=== PATIENT | male | born 1975 | race Hispanic/Latino ===

== ENCOUNTER 2022-12-10 17:15 | Inpatient (IN) | payer OTHER ==
[~2022-12-10] VITALS: Ht 177.8 cm; Wt 124.7 kg
[2022-12-10 20:26] LABS: APPEARANCE,URINE CLOUDY (CLEAR); BILIRUBIN,URINE 3 mg/dL (NEGATIVE); COLOR,URINE DARK-ORANGE (YELLOW); GLUCOSE, URINE (UA) 30 mg/dL (NEGATIVE); KETONES,URINE NEGATIVE (NEGATIVE); LEUKOCYTE ESTERASE ,URINE NEGATIVE Leu/uL (NEGATIVE); NITRATE,URINE NEGATIVE (NEGATIVE); OCCULT BLOOD,URINE NEGATIVE (NEGATIVE); PROTEIN,URINE 200 mg/dL (NEGATIVE); UROBILINOGEN,URINE 12 mg/dL (0.2-1.0)
[2022-12-10 20:27] LABS: ADD UA MICROSCOPIC YES
[2022-12-10] MEDS ORDERED: 0.9% NACL 500ML IV.SOLN 500 ML IV ONE (20:30)
[2022-12-10] MEDS ORDERED: LORAZEPAM 2 MG/ML 1 ML VIAL IM ONE (20:30)
[2022-12-10 20:31] LABS: BACTERIA,URINE RARE /HPF (None Seen); MUCUS,URINE MOD LPF (None Seen); RBC,URINE 0-1 /HPF (0-1); SQUAMOUS EPITHELIAL CELL,UR FEW /HPF (0-2)
[2022-12-10 20:32] LABS: AMPHET/METH SCREEN,URINE NEGATIVE (NEGATIVE); BARBITURATE SCREEN, URINE NEGATIVE (NEGATIVE); BENZODIAZEPINES SCREEN,URINE NEGATIVE (NEGATIVE); CANNABINOID SCREEN,URINE NEGATIVE (NEGATIVE); COCAINE SCREEN,URINE NEGATIVE (NEGATIVE); OPIATE SCREEN,URINE NEGATIVE (NEGATIVE); PHENCYCLIDINE SCREEN,URINE NEGATIVE (NEGATIVE)
[2022-12-10 20:45] LABS: BASOPHILS # (AUTO) 0.09 K/uL (0.00-0.20); EOSINOPHILS # (AUTO) 0.18 K/uL (0.00-0.70); EOSINOPHILS % (AUTO) 2.1 % (0.0-8.0); HEMATOCRIT 39.3 % (42-54); IMMATURE GRANULOCYTE ABSOLUTE 0.03 K/uL (0-1); LYMPHOCYTES # (AUTO) 1.2 K/uL (1.0-4.8); LYMPHOCYTES % (AUTO) 13.5 % (21.0-51.0); MEAN CORPUSCULAR HEMOGLOBIN 32.9 pg (27.0-33.0); MEAN CORPUSCULAR HGB CONC 34.4 g/dL (32.0-36.0); MEAN CORPUSCULAR VOLUME 95.9 fL (79-99); MONOCYTES # (AUTO) 0.9 K/uL (0.1-1.0); MONOCYTES % (AUTO) 10.3 % (3.0-13.0); NEUTROPHILS # (AUTO) 6.3 K/uL (1.8-7.7); NEUTROPHILS % (AUTO) 72.8 % (40.0-77.0); PLATELET COUNT (AUTO) 51 K/uL (130-400); RED CELL DISTRIBUTION WIDTH 15.9 % (11.0-15.5); WHITE BLOOD COUNT (AUTO) 8.7 K/uL (4.8-10.8)
[2022-12-10 20:55] LABS: CREATININE 0.7 mg/dL (0.5-1.5); POTASSIUM 3.5 mmol/L (3.5-5.1)
[2022-12-10 20:59] LABS: ALBUMIN 2.8 g/dL (3.5-5.0); BILIRUBIN,TOTAL 8.1 mg/dL (0.2-1.0)
[2022-12-10 21:07] LABS: B-TYPE NATRIURETIC PEPTIDE 15 pg/mL (0-100)
[2022-12-10 21:09] LABS: PLATELET MORPHOLOGY COMMENT MARKED DECREASE
[2022-12-10] MEDS ORDERED: LACTULOSE 20 GM/30 ML UDCUP PO ONE (22:30)
[2022-12-10] MEDS ORDERED: HYDROCODONE/ACETAMINOPHEN 5/325 MG TAB PO PRN (23:00)
[2022-12-10] MEDS ORDERED: HYDROMORPHONE 1 MG INJ IV PRN (23:00)
[2022-12-10] MEDS ORDERED: ACETAMINOPHEN 325 MG TAB PO PRN ×2 (23:00)
[2022-12-10] MEDS ORDERED: ONDANSETRON 4MG INJ IV PRN (23:00)
[2022-12-10 23:21] LABS: INR 1.62 (0.85-1.15); PROTHROMBIN TIME 18.2 SEC (9.6-11.6)
[2022-12-10 23:23] LABS: PARTIAL THROMBOPLASTIN TIME 31.5 SEC (26.3-35.5)
[2022-12-11] MEDS ORDERED: LORAZEPAM 2 MG/ML 1 ML VIAL IVP PRN (02:00)
[2022-12-11] MEDS ORDERED: PHARMACY COMMUNICATION MISC PRN (02:00)
[2022-12-11] MEDS: CHLORDIAZEPOXIDE HCL 25 MG CAP PO SCH ×3 (02:10→17:35)
[2022-12-11 05:54] LABS: BASOPHILS # (AUTO) 0.07 K/uL (0.00-0.20); BASOPHILS % (AUTO) 0.8 % (0.0-5.0); EOSINOPHILS # (AUTO) 0.26 K/uL (0.00-0.70); EOSINOPHILS % (AUTO) 3.1 % (0.0-8.0); HEMATOCRIT 35.3 % (42-54); IMMATURE GRANULOCYTE ABSOLUTE 0.04 K/uL (0-1); LYMPHOCYTES # (AUTO) 1.2 K/uL (1.0-4.8); LYMPHOCYTES % (AUTO) 14.5 % (21.0-51.0); MEAN CORPUSCULAR HEMOGLOBIN 32.4 pg (27.0-33.0); MEAN CORPUSCULAR HGB CONC 34.6 g/dL (32.0-36.0); MEAN CORPUSCULAR VOLUME 93.6 fL (79-99); MONOCYTES # (AUTO) 0.8 K/uL (0.1-1.0); NEUTROPHILS % (AUTO) 71.1 % (40.0-77.0); PLATELET COUNT (AUTO) 46 K/uL (130-400); RED BLOOD CELL COUNT(AUTO) 3.77 MIL/uL (4.50-6.20); RED CELL DISTRIBUTION WIDTH 16.3 % (11.0-15.5); WHITE BLOOD COUNT (AUTO) 8.4 K/uL (4.8-10.8)
[2022-12-11 06:07] LABS: CREATININE 0.7 mg/dL (0.5-1.5); MAGNESIUM 1.6 mg/dL (1.80-2.40); PHOSPHORUS 3.6 mg/dL (2.5-4.9); POTASSIUM 3.4 mmol/L (3.5-5.1)
[2022-12-11] MEDS: LACTULOSE 20 GM/30 ML UDCUP PO SCH ×2 (08:25→20:21)
[2022-12-11] MEDS: FAMOTIDINE 20MG TAB PO SCH ×2 (08:25→20:22)
[2022-12-11] MEDS: FUROSEMIDE 40 MG TABLET PO SCH (08:26)
[2022-12-11] MEDS ORDERED: LACTULOSE 20 GM/30 ML UDCUP PO SCH (09:00)
[2022-12-11] MEDS ORDERED: IOHEXOL 350 MG/ML 100ML INFUS..BTL IV ONE (10:11)
[2022-12-11 16:25] LABS: HEPATITIS A IGM ANTIBODY Non-Reactive (Nonreactive); HEPATITIS B CORE IGM ANTIBODY Non-Reactive (Negative); HEPATITIS B SURFACE ANTIGEN Non-Reactive (Nonreactive); HEPATITIS C ANTIBODY Non-Reactive (Nonreactive)
[2022-12-11] MEDS: M.V.I. IV [ADULT] 10 ML, FOLIC ACID 1 MG, THIAMINE HCL 100 MG in 0.9%NACL 1000ML 1,000 ML IV SCH (16:38)
[2022-12-11] MEDS ORDERED: PEG 3350/NA SULF,BICARB,CL/KCL 4000 ML SOLN PO STA (18:03)
[2022-12-11 20:31] LABS: SARS-CoV-2, RNA, NAAT NEGATIVE SARS CoV-2 (NEGATIVE)
[2022-12-11 21:00] VITALS: BP 154/97; PULSE 114; RESP 22
[2022-12-11 23:46] VITALS: BP 160/94; PULSE 111; RESP 21
[2022-12-12] VITALS (30 sets, daily range): BP systolic 119–154; BP diastolic 73–92; PULSE 93–120; RESP 15–22; O2SAT 95
[2022-12-12] MEDS: CHLORDIAZEPOXIDE HCL 25 MG CAP PO SCH ×3 (02:45→18:00)
[2022-12-12 03:45] LABS: BASOPHILS # (AUTO) 0.05 K/uL (0.00-0.20); BASOPHILS % (AUTO) 0.7 % (0.0-5.0); EOSINOPHILS # (AUTO) 0.21 K/uL (0.00-0.70); EOSINOPHILS % (AUTO) 2.9 % (0.0-8.0); HEMATOCRIT 36.1 % (42-54); IMMATURE GRANULOCYTE ABSOLUTE 0.04 K/uL (0-1); LYMPHOCYTES # (AUTO) 0.9 K/uL (1.0-4.8); MEAN CORPUSCULAR HEMOGLOBIN 33.2 pg (27.0-33.0); MEAN CORPUSCULAR HGB CONC 34.3 g/dL (32.0-36.0); MEAN CORPUSCULAR VOLUME 96.5 fL (79-99); MONOCYTES # (AUTO) 0.8 K/uL (0.1-1.0); MONOCYTES % (AUTO) 11.3 % (3.0-13.0); NEUTROPHILS # (AUTO) 5.1 K/uL (1.8-7.7); NEUTROPHILS % (AUTO) 71.5 % (40.0-77.0); PLATELET COUNT (AUTO) 46 K/uL (130-400); RED BLOOD CELL COUNT(AUTO) 3.74 MIL/uL (4.50-6.20); WHITE BLOOD COUNT (AUTO) 7.2 K/uL (4.8-10.8)
[2022-12-12 04:02] LABS: ALBUMIN 2.5 g/dL (3.5-5.0); BILIRUBIN,TOTAL 9.9 mg/dL (0.2-1.0); CREATININE 0.8 mg/dL (0.5-1.5); MAGNESIUM 1.7 mg/dL (1.80-2.40); PHOSPHORUS 3.1 mg/dL (2.5-4.9); POTASSIUM 3.4 mmol/L (3.5-5.1); TOTAL PROTEIN, SERUM 6.2 g/dL (6.0-8.3)
[2022-12-12] MEDS: LACTULOSE 20 GM/30 ML UDCUP PO SCH ×2 (09:00→21:32)
[2022-12-12] MEDS: FAMOTIDINE 20MG TAB PO SCH ×2 (09:00→21:32)
[2022-12-12] MEDS: FUROSEMIDE 40 MG TABLET PO SCH (09:00)
[2022-12-12] MEDS ORDERED: POTASSIUM CHLORIDE 20MEQ/100ML 100 ML IV ONE (10:23)
[2022-12-12] MEDS: M.V.I. IV [ADULT] 10 ML, FOLIC ACID 1 MG, THIAMINE HCL 100 MG in 0.9%NACL 1000ML 1,000 ML IV SCH (10:27)
[2022-12-12] MEDS ORDERED: POTASSIUM CHLORIDE 10% ELIXIR 20 MEQ/15 ML UDCUP PO PRN (12:00)
[2022-12-12] MEDS ORDERED: POTASSIUM CHLORIDE 20MEQ/100ML 100 ML IV PRN (12:00)
[2022-12-12] MEDS ORDERED: MAGNESIUM 2GM PREMIX 50ML 50 ML IV PRN (12:00)
[2022-12-12] MEDS ORDERED: PROPOFOL 10 MG/ML 20ML VIAL IV ONE (12:23)
[2022-12-12] MEDS ORDERED: PHENYLEPHRINE HCL 10 MG/ML 1ML VIAL IV ONE (12:23)
[2022-12-12] MEDS: OCTREOTIDE ACETATE 1,250 MCG in 0.9% NACL 250ML 250 ML IV SCH (15:51)
[2022-12-13] VITALS (8 sets, daily range): BP systolic 130–140; BP diastolic 69–80; PULSE 73–99; RESP 17–20; O2SAT 96–97
[2022-12-13 03:47] LABS: BASOPHILS # (AUTO) 0.07 K/uL (0.00-0.20); BASOPHILS % (AUTO) 0.7 % (0.0-5.0); EOSINOPHILS # (AUTO) 0.25 K/uL (0.00-0.70); EOSINOPHILS % (AUTO) 2.6 % (0.0-8.0); HEMATOCRIT 38.4 % (42-54); IMMATURE GRANULOCYTE ABSOLUTE 0.04 K/uL (0-1); LYMPHOCYTES # (AUTO) 1.4 K/uL (1.0-4.8); LYMPHOCYTES % (AUTO) 14.4 % (21.0-51.0); MEAN CORPUSCULAR HEMOGLOBIN 32.8 pg (27.0-33.0); MEAN CORPUSCULAR HGB CONC 33.6 g/dL (32.0-36.0); MEAN CORPUSCULAR VOLUME 97.7 fL (79-99); MONOCYTES # (AUTO) 0.9 K/uL (0.1-1.0); MONOCYTES % (AUTO) 8.9 % (3.0-13.0); NEUTROPHILS # (AUTO) 7.1 K/uL (1.8-7.7); PLATELET COUNT (AUTO) 56 K/uL (130-400); RED BLOOD CELL COUNT(AUTO) 3.93 MIL/uL (4.50-6.20); WHITE BLOOD COUNT (AUTO) 9.7 K/uL (4.8-10.8)
[2022-12-13 04:02] LABS: ALBUMIN 2.7 g/dL (3.5-5.0); BILIRUBIN,TOTAL 10.1 mg/dL (0.2-1.0); CREATININE 0.9 mg/dL (0.5-1.5); POTASSIUM 3.9 mmol/L (3.5-5.1); TOTAL PROTEIN, SERUM 6.7 g/dL (6.0-8.3)
[2022-12-13] MEDS: LACTULOSE 20 GM/30 ML UDCUP PO SCH ×2 (09:53→20:07)
[2022-12-13] MEDS: SPIRONOLACTONE 25 MG TAB PO SCH (09:53)
[2022-12-13] MEDS: CHLORDIAZEPOXIDE HCL 25 MG CAP PO SCH ×3 (09:53→17:03)
[2022-12-13] MEDS: M.V.I. IV [ADULT] 10 ML, FOLIC ACID 1 MG, THIAMINE HCL 100 MG in 0.9%NACL 1000ML 1,000 ML IV SCH (09:53)
[2022-12-13] MEDS: FAMOTIDINE 20MG TAB PO SCH ×2 (09:53→20:07)
[2022-12-13] MEDS: FUROSEMIDE 40 MG TABLET PO SCH (09:53)
[2022-12-14] VITALS (8 sets, daily range): BP systolic 128–163; BP diastolic 75–99; PULSE 69–92; RESP 16–20; O2SAT 97
[2022-12-14] MEDS: CHLORDIAZEPOXIDE HCL 25 MG CAP PO SCH ×3 (02:33→17:49)
[2022-12-14 04:30] LABS: BASOPHILS # (AUTO) 0.06 K/uL (0.00-0.20); BASOPHILS % (AUTO) 0.8 % (0.0-5.0); EOSINOPHILS # (AUTO) 0.36 K/uL (0.00-0.70); HEMATOCRIT 36.5 % (42-54); IMMATURE GRANULOCYTE ABSOLUTE 0.04 K/uL (0-1); LYMPHOCYTES # (AUTO) 1.3 K/uL (1.0-4.8); LYMPHOCYTES % (AUTO) 18.6 % (21.0-51.0); MEAN CORPUSCULAR HEMOGLOBIN 33.1 pg (27.0-33.0); MEAN CORPUSCULAR HGB CONC 34.2 g/dL (32.0-36.0); MEAN CORPUSCULAR VOLUME 96.6 fL (79-99); MONOCYTES # (AUTO) 0.8 K/uL (0.1-1.0); MONOCYTES % (AUTO) 10.5 % (3.0-13.0); NEUTROPHILS # (AUTO) 4.6 K/uL (1.8-7.7); NEUTROPHILS % (AUTO) 64.5 % (40.0-77.0); PLATELET COUNT (AUTO) 54 K/uL (130-400); RED BLOOD CELL COUNT(AUTO) 3.78 MIL/uL (4.50-6.20); RED CELL DISTRIBUTION WIDTH 16.2 % (11.0-15.5); WHITE BLOOD COUNT (AUTO) 7.2 K/uL (4.8-10.8)
[2022-12-14 04:50] LABS: ALBUMIN 2.3 g/dL (3.5-5.0); CREATININE 0.7 mg/dL (0.5-1.5); POTASSIUM 3.2 mmol/L (3.5-5.1); TOTAL PROTEIN, SERUM 5.9 g/dL (6.0-8.3)
[2022-12-14] MEDS: KCL 20 MEQ ERTAB PO PRN ×3 (05:42→11:34)
[2022-12-14] MEDS: SPIRONOLACTONE 25 MG TAB PO SCH (08:22)
[2022-12-14] MEDS: FAMOTIDINE 20MG TAB PO SCH ×2 (08:22→20:16)
[2022-12-14] MEDS: FUROSEMIDE 40 MG TABLET PO SCH (08:23)
[2022-12-14] MEDS: LACTULOSE 20 GM/30 ML UDCUP PO SCH ×2 (08:23→20:16)
[2022-12-14] MEDS: M.V.I. IV [ADULT] 10 ML, FOLIC ACID 1 MG, THIAMINE HCL 100 MG in 0.9%NACL 1000ML 1,000 ML IV SCH (09:37)
[2022-12-14] MEDS: OCTREOTIDE ACETATE 1,250 MCG in 0.9% NACL 250ML 250 ML IV SCH (17:59)
[2022-12-15] VITALS: BP 132/87; PULSE 77; RESP 20
[2022-12-15] MEDS: CHLORDIAZEPOXIDE HCL 25 MG CAP PO SCH (01:55)
== END 2022-12-15 21:45 | disposition left against medical advice (07) | DRG 433 ==
LOC: EDH 17:15 → EDHIP 17:16 → 4AH 12-11 20:45
PROVIDERS: ADMIT Internal Medicine; ATTEND Internal Medicine
PROC: 0DJD8ZZ Inspection of Lower Intestinal Tract, Via Natural or Artificial Opening Endoscopic (ICD-10-PCS; principal; 2022-12-12)
PROC: 06L38CZ Occlusion of Esophageal Vein with Extraluminal Device, Via Natural or Artificial Opening Endoscopic (ICD-10-PCS; 2022-12-12)
DX: K74.60 Unspecified cirrhosis of liver (principal); F10.239 Alcohol dependence with withdrawal, unspecified; I85.10 Secondary esophageal varices without bleeding; R18.8 Other ascites; D69.6 Thrombocytopenia, unspecified; I10 Essential (primary) hypertension; F17.210 Nicotine dependence, cigarettes, uncomplicated; D64.9 Anemia, unspecified; Z82.49 Family history of ischemic heart disease and other diseases of the circulatory system
CPT/HCPCS: 36415; 43244; 45378; 71045; 74176; 74178; 76705; 80048; 80053; 80074; 80305; 81001; 82105; 82140; 82378; 83690; 83735; 83880; 84100; 85025; 85610; 85730; 86850; 86900; 86901; 87635; A4606; G0378; J2060; J2354; J2371; J2704; J3411; J3475; J3480; J3490; J7030; J7040; J7050; Q9967; A4216; A4222; A4223; A4620; A4657; A7002

== ENCOUNTER 2023-02-21 22:26 | Emergency (ER) | payer MEDICAID, OTHER ==
[~2023-02-21] VITALS: Ht 172.7 cm; Wt 117.0 kg
[2023-02-21 22:48] LABS: BASOPHILS # (AUTO) 0.08 K/uL (0.00-0.20); BASOPHILS % (AUTO) 0.8 % (0.0-5.0); EOSINOPHILS # (AUTO) 0.87 K/uL (0.00-0.70); EOSINOPHILS % (AUTO) 8.6 % (0.0-8.0); HEMATOCRIT 28.4 % (42-54); IMMATURE GRANULOCYTE ABSOLUTE 0.04 K/uL (0-1); LYMPHOCYTES % (AUTO) 19.5 % (21.0-51.0); MEAN CORPUSCULAR HEMOGLOBIN 26.6 pg (27.0-33.0); MONOCYTES % (AUTO) 9.9 % (3.0-13.0); NEUTROPHILS # (AUTO) 6.1 K/uL (1.8-7.7); NEUTROPHILS % (AUTO) 60.8 % (40.0-77.0); PLATELET COUNT (AUTO) 147 K/uL (130-400); RED BLOOD CELL COUNT(AUTO) 3.42 MIL/uL (4.50-6.20); RED CELL DISTRIBUTION WIDTH 15.9 % (11.0-15.5); WHITE BLOOD COUNT (AUTO) 10.1 K/uL (4.8-10.8)
[2023-02-21] MEDS ORDERED: ONDANSETRON 4MG INJ IVP ONE (23:00)
[2023-02-21 23:05] LABS: ALBUMIN 2.7 g/dL (3.5-5.0); BILIRUBIN,TOTAL 3.3 mg/dL (0.2-1.0); CREATININE 1.4 mg/dL (0.5-1.5); POTASSIUM 4.5 mmol/L (3.5-5.1); TOTAL PROTEIN, SERUM 6.5 g/dL (6.0-8.3)
[2023-02-21 23:48] VITALS: BP 148/89; PULSE 116; RESP 22; O2SAT 97
== END 2023-02-22 00:32 | disposition home or self-care (01) ==
LOC: EDH 22:26
DX: R18.8 Other ascites (principal); K74.60 Unspecified cirrhosis of liver; F17.200 Nicotine dependence, unspecified, uncomplicated; Z98.890 Other specified postprocedural states
CPT/HCPCS: 99285; 96374; 71045; 84484; 80053; 82140; 83690; 85025; 36415 ×2; 93005; J2405

== ENCOUNTER 2023-03-18 21:03 | Inpatient (IN) | payer OTHER ==
[~2023-03-18] VITALS: Ht 177.8 cm; Wt 106.1 kg
[2023-03-18] MEDS ORDERED: ONDANSETRON ODT 4MG TAB SL ONE (22:00)
[2023-03-18 22:49] LABS: BASOPHILS # (AUTO) 0.06 K/uL (0.00-0.20); BASOPHILS % (AUTO) 0.6 % (0.0-5.0); EOSINOPHILS # (AUTO) 0.92 K/uL (0.00-0.70); EOSINOPHILS % (AUTO) 9.7 % (0.0-8.0); HEMATOCRIT 29.6 % (42-54); IMMATURE GRANULOCYTE ABSOLUTE 0.04 K/uL (0-1); LYMPHOCYTES % (AUTO) 21.1 % (21.0-51.0); MEAN CORPUSCULAR HGB CONC 32.1 g/dL (32.0-36.0); MEAN CORPUSCULAR VOLUME 80.9 fL (79-99); MONOCYTES % (AUTO) 10.4 % (3.0-13.0); NEUTROPHILS # (AUTO) 5.5 K/uL (1.8-7.7); NEUTROPHILS % (AUTO) 57.8 % (40.0-77.0); PLATELET COUNT (AUTO) 112 K/uL (130-400); RED BLOOD CELL COUNT(AUTO) 3.66 MIL/uL (4.50-6.20); RED CELL DISTRIBUTION WIDTH 18.3 % (11.0-15.5); WHITE BLOOD COUNT (AUTO) 9.5 K/uL (4.8-10.8)
[2023-03-18 22:58] LABS: POTASSIUM 4.5 mmol/L (3.5-5.1)
[2023-03-18 23:07] LABS: ALBUMIN 2.3 g/dL (3.5-5.0); TOTAL PROTEIN, SERUM 6.3 g/dL (6.0-8.3)
[2023-03-19] VITALS (10 sets, daily range): BP systolic 102–121; BP diastolic 47–69; PULSE 92–111; RESP 16–20; O2SAT 96–98
[2023-03-19] MEDS ORDERED: FUROSEMIDE 40MG VIAL IV ONE (02:00)
[2023-03-19] MEDS ORDERED: HYDROMORPHONE 1 MG INJ IV PRN (03:30)
[2023-03-19] MEDS ORDERED: ONDANSETRON 4MG INJ IV PRN (03:30)
[2023-03-19] MEDS ORDERED: HYDROCODONE/ACETAMINOPHEN 5/325 MG TAB PO PRN (03:30)
[2023-03-19] MEDS ORDERED: ACETAMINOPHEN 325 MG TAB PO PRN ×2 (03:30)
[2023-03-19 05:08] LABS: BASOPHILS # (AUTO) 0.05 K/uL (0.00-0.20); BASOPHILS % (AUTO) 0.6 % (0.0-5.0); EOSINOPHILS # (AUTO) 0.84 K/uL (0.00-0.70); HEMATOCRIT 26.4 % (42-54); IMMATURE GRANULOCYTE ABSOLUTE 0.02 K/uL (0-1); LYMPHOCYTES # (AUTO) 1.8 K/uL (1.0-4.8); LYMPHOCYTES % (AUTO) 21.4 % (21.0-51.0); MEAN CORPUSCULAR HEMOGLOBIN 25.9 pg (27.0-33.0); MEAN CORPUSCULAR VOLUME 78.6 fL (79-99); MONOCYTES # (AUTO) 0.8 K/uL (0.1-1.0); NEUTROPHILS # (AUTO) 4.9 K/uL (1.8-7.7); NEUTROPHILS % (AUTO) 57.8 % (40.0-77.0); PLATELET COUNT (AUTO) 112 K/uL (130-400); RED BLOOD CELL COUNT(AUTO) 3.36 MIL/uL (4.50-6.20); RED CELL DISTRIBUTION WIDTH 18.4 % (11.0-15.5); WHITE BLOOD COUNT (AUTO) 8.4 K/uL (4.8-10.8)
[2023-03-19 05:19] LABS: ADD UA MICROSCOPIC NO; APPEARANCE,URINE CLEAR (CLEAR); BILIRUBIN,URINE NEGATIVE (NEGATIVE); COLOR,URINE YELLOW (YELLOW); GLUCOSE, URINE (UA) NEGATIVE (NEGATIVE); KETONES,URINE NEGATIVE (NEGATIVE); LEUKOCYTE ESTERASE ,URINE NEGATIVE Leu/uL (NEGATIVE); NITRATE,URINE NEGATIVE (NEGATIVE); OCCULT BLOOD,URINE NEGATIVE (NEGATIVE); PH,URINE 5.5 (5.0-8.0); PROTEIN,URINE NEGATIVE (NEGATIVE); UROBILINOGEN,URINE 0.2 mg/dL (0.2-1.0)
[2023-03-19 05:24] LABS: INR 1.48 (0.85-1.15); PROTHROMBIN TIME 16.7 SEC (9.6-11.6)
[2023-03-19 05:26] LABS: PARTIAL THROMBOPLASTIN TIME 30.2 SEC (26.3-35.5)
[2023-03-19 05:31] LABS: MAGNESIUM 1.9 mg/dL (1.80-2.40); PHOSPHORUS 4.7 mg/dL (2.5-4.9); POTASSIUM 3.9 mmol/L (3.5-5.1)
[2023-03-19] MEDS: LACTULOSE 20 GM/30 ML UDCUP PO SCH ×2 (08:59→21:04)
[2023-03-19] MEDS: FAMOTIDINE 20MG TAB PO SCH ×2 (09:00→21:04)
[2023-03-19] MEDS: FUROSEMIDE 40MG VIAL IVP SCH ×2 (09:00→21:04)
[2023-03-19] MEDS ORDERED: SODIUM BICARB 50MEQ 50ML VIAL 50 ML ONE (10:15)
[2023-03-19] MEDS ORDERED: ALBUMIN (HUMAN) 25% 200 ML IV ONE (10:15)
[2023-03-19] MEDS ORDERED: FURO40TA5 PO (12:20)
[2023-03-19] MEDS ORDERED: LACT10SO5 PO (12:21)
[2023-03-19] MEDS ORDERED: SPIR50TA5 PO (12:21)
[2023-03-19 15:08] LABS: APPEARANCE BODY FLUID CLEAR (CLEAR); SPECIMENTYPE,BODY FLUID ASCITES
[2023-03-19 15:09] LABS: COLOR,BODY FLUID YELLOW (LT YELLOW); TOTAL VOLUME,BODY FLUID 15000 mL
[2023-03-19 15:29] LABS: BODY FLUID RBC 3094 /cu. mm.; BODY FLUID WBC 198 /cu. mm.
[2023-03-19 16:00] LABS: BF LYMPHOCYTE 37 %; BF MACROPHAGE 22; BF MESOTHELIAL 22 %; BF MONOCYTE 3 %; BF OTHER CELLS 1; BF TOTAL CELLS COUNTED 100
[2023-03-20 00:18] VITALS: BP 112/70; PULSE 99; RESP 18
[2023-03-20 03:56] VITALS: BP 110/65; PULSE 97; RESP 18
[2023-03-20 05:45] LABS: BASOPHILS # (AUTO) 0.02 K/uL (0.00-0.20); BASOPHILS % (AUTO) 0.3 % (0.0-5.0); EOSINOPHILS # (AUTO) 0.68 K/uL (0.00-0.70); EOSINOPHILS % (AUTO) 11.1 % (0.0-8.0); HEMATOCRIT 24.3 % (42-54); IMMATURE GRANULOCYTE ABSOLUTE 0.02 K/uL (0-1); LYMPHOCYTES % (AUTO) 32.1 % (21.0-51.0); MEAN CORPUSCULAR HEMOGLOBIN 25.8 pg (27.0-33.0); MEAN CORPUSCULAR HGB CONC 32.5 g/dL (32.0-36.0); MEAN CORPUSCULAR VOLUME 79.4 fL (79-99); MONOCYTES # (AUTO) 0.7 K/uL (0.1-1.0); MONOCYTES % (AUTO) 11.7 % (3.0-13.0); NEUTROPHILS # (AUTO) 2.7 K/uL (1.8-7.7); NEUTROPHILS % (AUTO) 44.5 % (40.0-77.0); PLATELET COUNT (AUTO) 95 K/uL (130-400); RED BLOOD CELL COUNT(AUTO) 3.06 MIL/uL (4.50-6.20); RED CELL DISTRIBUTION WIDTH 18.4 % (11.0-15.5); WHITE BLOOD COUNT (AUTO) 6.1 K/uL (4.8-10.8)
[2023-03-20 05:53] LABS: CREATININE 1.2 mg/dL (0.5-1.5); POTASSIUM 3.5 mmol/L (3.5-5.1)
[2023-03-20 07:56] VITALS: BP 108/74; PULSE 96; RESP 17
[2023-03-20 08:00] VITALS: O2SAT 96
[2023-03-20] MEDS: FAMOTIDINE 20MG TAB PO SCH (09:07)
[2023-03-20] MEDS: FUROSEMIDE 40MG VIAL IVP SCH (09:07)
[2023-03-20] MEDS: LACTULOSE 20 GM/30 ML UDCUP PO SCH (09:07)
[2023-03-20] MEDS ORDERED: LACT10SO5 PO (10:01)
[2023-03-20 11:15] VITALS: BP 116/63; PULSE 97; RESP 17
== END 2023-03-20 13:15 | disposition home or self-care (01) | DRG 433 ==
LOC: EDH 21:03 → EDHIP 21:04 → 3AH 03-19 12:06
PROVIDERS: ADMIT Internal Medicine; ATTEND Internal Medicine
PROC: 0W9G30Z Drainage of Peritoneal Cavity with Drainage Device, Percutaneous Approach (ICD-10-PCS; principal; 2023-03-20)
DX: K74.60 Unspecified cirrhosis of liver (principal); E87.1 Hypo-osmolality and hyponatremia; R18.8 Other ascites; K76.6 Portal hypertension; K86.1 Other chronic pancreatitis; D69.6 Thrombocytopenia, unspecified; D64.9 Anemia, unspecified; I10 Essential (primary) hypertension; Z82.49 Family history of ischemic heart disease and other diseases of the circulatory system; Z87.891 Personal history of nicotine dependence; Z88.0 Allergy status to penicillin
CPT/HCPCS: 36415; 49083; 76700; 80048; 80053; 81003; 82140; 83605; 83690; 83735; 84100; 85025; 85610; 85730; 86850; 86900; 86901; 87071; 87205; 89051; 93005; 96365; C1729; G0378; J1940; J3490; P9046

== ENCOUNTER 2023-04-23 19:15 | Emergency (ER) | payer OTHER ==
[~2023-04-23] VITALS: Ht 177.8 cm; Wt 111.1 kg
[~2023-04-23 19:15] MED LIST: FURO40TA5 PO; LACT10SO5 PO; SPIR50TA5 PO
[2023-04-23 20:23] VITALS: BP 142/78; PULSE 86; RESP 18; O2SAT 98
== END 2023-04-23 21:05 | disposition home or self-care (01) ==
LOC: EDH 19:15
DX: K70.31 Alcoholic cirrhosis of liver with ascites (principal); Z88.0 Allergy status to penicillin

== ENCOUNTER 2023-05-06 10:15 | Emergency (ER) | payer OTHER ==
[~2023-05-06] VITALS: Ht 177.8 cm; Wt 117.9 kg
[2023-05-06 10:37] LABS: BASOPHILS # (AUTO) 0.02 K/uL (0.00-0.20); BASOPHILS % (AUTO) 0.3 % (0.0-5.0); EOSINOPHILS # (AUTO) 0.48 K/uL (0.00-0.70); EOSINOPHILS % (AUTO) 6.6 % (0.0-8.0); HEMATOCRIT 27.4 % (42-54); IMMATURE GRANULOCYTE ABSOLUTE 0.03 K/uL (0-1); LYMPHOCYTES # (AUTO) 1.6 K/uL (1.0-4.8); LYMPHOCYTES % (AUTO) 21.7 % (21.0-51.0); MEAN CORPUSCULAR HEMOGLOBIN 28.1 pg (27.0-33.0); MEAN CORPUSCULAR HGB CONC 33.6 g/dL (32.0-36.0); MEAN CORPUSCULAR VOLUME 83.8 fL (79-99); MONOCYTES # (AUTO) 0.8 K/uL (0.1-1.0); MONOCYTES % (AUTO) 10.8 % (3.0-13.0); NEUTROPHILS # (AUTO) 4.4 K/uL (1.8-7.7); NEUTROPHILS % (AUTO) 60.2 % (40.0-77.0); PLATELET COUNT (AUTO) 116 K/uL (130-400); RED BLOOD CELL COUNT(AUTO) 3.27 MIL/uL (4.50-6.20); RED CELL DISTRIBUTION WIDTH 18.6 % (11.0-15.5); WHITE BLOOD COUNT (AUTO) 7.2 K/uL (4.8-10.8)
[2023-05-06 10:45] LABS: CREATININE 1.1 mg/dL (0.5-1.5); POTASSIUM 4.2 mmol/L (3.5-5.1)
[2023-05-06 10:50] LABS: ALBUMIN 2.4 g/dL (3.5-5.0); BILIRUBIN,TOTAL 3.5 mg/dL (0.2-1.0); TOTAL PROTEIN, SERUM 5.9 g/dL (6.0-8.3)
[2023-05-06 10:53] LABS: INR 1.42 (0.85-1.15); PROTHROMBIN TIME 16.1 SEC (9.6-11.6)
[2023-05-06] MEDS ORDERED: ALBUMIN (HUMAN) 25% 200 ML IV SCH (12:50)
[2023-05-06 14:14] VITALS: BP 114/58; PULSE 102; RESP 18; O2SAT 99
[2023-05-06] MEDS ORDERED: SPIR50TA5 PO (15:36)
[2023-05-06] MEDS ORDERED: LACT10SO9 PO (15:36)
[2023-05-06] MEDS ORDERED: FURO40TA5 PO (15:36)
== END 2023-05-06 16:15 | disposition home or self-care (01) ==
LOC: EDH 10:15
DX: R18.8 Other ascites (principal); K74.60 Unspecified cirrhosis of liver; E87.70 Fluid overload, unspecified; F17.200 Nicotine dependence, unspecified, uncomplicated; Z79.899 Other long term (current) drug therapy; Z98.890 Other specified postprocedural states; Z88.0 Allergy status to penicillin
CPT/HCPCS: 49083; 99285; 96365; 80053; 85025; 85610; 85730; 36415; P9046; C1729

== ENCOUNTER 2023-06-04 07:54 | Emergency (ER) | payer OTHER ==
[~2023-06-04] VITALS: Ht 177.8 cm; Wt 108.9 kg
[~2023-06-04 07:54] MED LIST changes: +FURO20TA4 PO; -FURO40TA5 PO; -LACT10SO5 PO; +LACT10SO9 PO; +MIDO5TAB4 PO; +PANT40TA54 PO; +PROP10TA10 PO; +RIFA550T PO; +SPIR25TA PO; -SPIR50TA5 PO
[2023-06-04 09:12] LABS: BASOPHILS # (AUTO) 0.07 K/uL (0.00-0.20); BASOPHILS % (AUTO) 0.8 % (0.0-5.0); EOSINOPHILS # (AUTO) 1.08 K/uL (0.00-0.70); EOSINOPHILS % (AUTO) 12.4 % (0.0-8.0); HEMATOCRIT 25.9 % (42-54); IMMATURE GRANULOCYTE ABSOLUTE 0.02 K/uL (0-1); LYMPHOCYTES # (AUTO) 1.6 K/uL (1.0-4.8); LYMPHOCYTES % (AUTO) 18.4 % (21.0-51.0); MEAN CORPUSCULAR HEMOGLOBIN 30.7 pg (27.0-33.0); MEAN CORPUSCULAR HGB CONC 34.4 g/dL (32.0-36.0); MEAN CORPUSCULAR VOLUME 89.3 fL (79-99); MONOCYTES # (AUTO) 0.7 K/uL (0.1-1.0); MONOCYTES % (AUTO) 8.4 % (3.0-13.0); NEUTROPHILS # (AUTO) 5.2 K/uL (1.8-7.7); NEUTROPHILS % (AUTO) 59.8 % (40.0-77.0); PLATELET COUNT (AUTO) 139 K/uL (130-400); RED CELL DISTRIBUTION WIDTH 17.2 % (11.0-15.5); WHITE BLOOD COUNT (AUTO) 8.7 K/uL (4.8-10.8)
[2023-06-04 09:20] LABS: INR 1.4 (0.85-1.15); PROTHROMBIN TIME 15.9 SEC (9.6-11.6)
[2023-06-04 09:21] LABS: PARTIAL THROMBOPLASTIN TIME 30.2 SEC (26.3-35.5)
[2023-06-04] MEDS ORDERED: ALBUMIN (HUMAN) 25% 200 ML IV ONE (10:35)
[2023-06-04 13:45] LABS: MAGNESIUM 2.6 mg/dL (1.80-2.40); POTASSIUM 3.8 mmol/L (3.5-5.1)
[2023-06-04 13:58] VITALS: BP 133/78; PULSE 74; RESP 18; O2SAT 98
== END 2023-06-04 14:07 | disposition home or self-care (01) ==
LOC: EDH 07:54
DX: K74.60 Unspecified cirrhosis of liver (principal); R18.8 Other ascites; F17.200 Nicotine dependence, unspecified, uncomplicated; Z79.899 Other long term (current) drug therapy; Z98.890 Other specified postprocedural states
CPT/HCPCS: 49083; 99285; 96365; 83735; 80048; 85025; 85610; 85730; 36415; P9046; C1729

== ENCOUNTER 2023-07-17 06:37 | Emergency (ER) | payer OTHER ==
[~2023-07-17] VITALS: Ht 177.8 cm; Wt 92.5 kg
[~2023-07-17 06:37] MED LIST changes: +FAMO20TA8 PO; +Folic Acid/Vitamin B Comp W-C PO
[2023-07-17] MEDS: MORPHINE 2 MG SYG IVP ONE (07:00)
[2023-07-17 07:03] LABS: BASOPHILS # (AUTO) 0.04 K/uL (0.00-0.20); BASOPHILS % (AUTO) 0.5 % (0.0-5.0); EOSINOPHILS # (AUTO) 0.53 K/uL (0.00-0.70); EOSINOPHILS % (AUTO) 6.5 % (0.0-8.0); HEMATOCRIT 28.7 % (42-54); IMMATURE GRANULOCYTE ABSOLUTE 0.03 K/uL (0-1); LYMPHOCYTES % (AUTO) 36.3 % (21.0-51.0); MEAN CORPUSCULAR HEMOGLOBIN 33.6 pg (27.0-33.0); MEAN CORPUSCULAR HGB CONC 34.8 g/dL (32.0-36.0); MEAN CORPUSCULAR VOLUME 96.3 fL (79-99); MONOCYTES # (AUTO) 0.8 K/uL (0.1-1.0); MONOCYTES % (AUTO) 9.3 % (3.0-13.0); NEUTROPHILS # (AUTO) 3.8 K/uL (1.8-7.7); PLATELET COUNT (AUTO) 95 K/uL (130-400); RED BLOOD CELL COUNT(AUTO) 2.98 MIL/uL (4.50-6.20); RED CELL DISTRIBUTION WIDTH 15.3 % (11.0-15.5); WHITE BLOOD COUNT (AUTO) 8.1 K/uL (4.8-10.8)
[2023-07-17] MEDS: MORPHINE 4 MG SYG ONE (07:07)
[2023-07-17] MEDS: METOCLOPRAMIDE 10 MG/2 ML VIAL IVP ONE (07:07)
[2023-07-17 07:14] LABS: ALBUMIN 2.9 g/dL (3.5-5.0); BILIRUBIN,TOTAL 4.2 mg/dL (0.2-1.0); CREATININE 0.9 mg/dL (0.5-1.5); POTASSIUM 4.1 mmol/L (3.5-5.1)
[2023-07-17 08:08] LABS: INR 1.59 (0.85-1.15); PROTHROMBIN TIME 18.1 SEC (9.6-11.6)
[2023-07-17 08:10] LABS: PARTIAL THROMBOPLASTIN TIME 33.1 SEC (26.3-35.5)
[2023-07-17 08:45] LABS: APPEARANCE,URINE CLEAR (CLEAR); BILIRUBIN,URINE 0.5 mg/dL (NEGATIVE); COLOR,URINE YELLOW (YELLOW); GLUCOSE, URINE (UA) NEGATIVE (NEGATIVE); KETONES,URINE NEGATIVE (NEGATIVE); LEUKOCYTE ESTERASE ,URINE NEGATIVE Leu/uL (NEGATIVE); NITRATE,URINE NEGATIVE (NEGATIVE); OCCULT BLOOD,URINE NEGATIVE (NEGATIVE); PROTEIN,URINE 30 mg/dL (NEGATIVE)
[2023-07-17 08:50] LABS: ADD UA MICROSCOPIC YES
[2023-07-17 08:53] LABS: MUCUS,URINE MANY LPF (None Seen); SQUAMOUS EPITHELIAL CELL,UR RARE /HPF (0-2)
[2023-07-17] MEDS: ALBUMIN (HUMAN) 25% 200 ML IV ONE (11:14)
[2023-07-17 12:10] VITALS: BP 110/72; PULSE 94; RESP 18; O2SAT 97
== END 2023-07-17 12:31 | disposition home or self-care (01) ==
LOC: EDH 06:37
DX: R18.8 Other ascites (principal); Z79.899 Other long term (current) drug therapy; Z98.890 Other specified postprocedural states; Z88.0 Allergy status to penicillin
CPT/HCPCS: 49083; 99285; 96365; 96375; 84484; 80053; 82140; 83690; 85025; 85610; 85730; 81001; 36415; 93005; P9046; J2270; J2765; C1729

== ENCOUNTER 2023-08-15 06:43 | Emergency (ER) | payer BC ==
[~2023-08-15] VITALS: Ht 177.8 cm; Wt 99.8 kg
[~2023-08-15 06:43] MED LIST changes: -FAMO20TA8 PO; -FURO20TA4 PO; +FURO40TA5 PO
[2023-08-15 07:51] LABS: BASOPHILS # (AUTO) 0.04 K/uL (0.00-0.20); BASOPHILS % (AUTO) 0.6 % (0.0-5.0); EOSINOPHILS # (AUTO) 0.74 K/uL (0.00-0.70); EOSINOPHILS % (AUTO) 10.5 % (0.0-8.0); IMMATURE GRANULOCYTE ABSOLUTE 0.02 K/uL (0-1); LYMPHOCYTES # (AUTO) 1.9 K/uL (1.0-4.8); LYMPHOCYTES % (AUTO) 26.1 % (21.0-51.0); MEAN CORPUSCULAR HEMOGLOBIN 31.9 pg (27.0-33.0); MEAN CORPUSCULAR HGB CONC 33.7 g/dL (32.0-36.0); MEAN CORPUSCULAR VOLUME 94.7 fL (79-99); MONOCYTES # (AUTO) 0.6 K/uL (0.1-1.0); MONOCYTES % (AUTO) 8.8 % (3.0-13.0); NEUTROPHILS # (AUTO) 3.8 K/uL (1.8-7.7); NEUTROPHILS % (AUTO) 53.7 % (40.0-77.0); PLATELET COUNT (AUTO) 112 K/uL (130-400); RED BLOOD CELL COUNT(AUTO) 2.85 MIL/uL (4.50-6.20); RED CELL DISTRIBUTION WIDTH 14.4 % (11.0-15.5); WHITE BLOOD COUNT (AUTO) 7.1 K/uL (4.8-10.8)
[2023-08-15 08:15] LABS: INR 1.46 (0.85-1.15); PROTHROMBIN TIME 16.7 SEC (9.6-11.6)
[2023-08-15 08:16] LABS: PARTIAL THROMBOPLASTIN TIME 32.1 SEC (26.3-35.5)
[2023-08-15 08:53] LABS: SARS-CoV-2, RNA, NAAT NEGATIVE SARS CoV-2 (NEGATIVE)
[2023-08-15] MEDS: ALBUMIN (HUMAN) 25% 200 ML IV ONE (09:20)
[2023-08-15 10:13] VITALS: BP 110/72; PULSE 94; RESP 16; O2SAT 99
== END 2023-08-15 10:29 | disposition home or self-care (01) ==
LOC: EDH 06:43
DX: K70.11 Alcoholic hepatitis with ascites (principal); M79.89 Other specified soft tissue disorders; F17.200 Nicotine dependence, unspecified, uncomplicated; F10.10 Alcohol abuse, uncomplicated; Z20.822 Contact with and (suspected) exposure to COVID-19; Z79.899 Other long term (current) drug therapy; Z98.890 Other specified postprocedural states
CPT/HCPCS: 49083; 99285; 96365; 93971; 87635; 85025; 85610; 85730; 36415; P9046; C1729

== ENCOUNTER 2023-08-28 06:50 | Emergency (ER) | payer BC ==
[~2023-08-28] VITALS: Ht 177.8 cm; Wt 108.9 kg
[2023-08-28 07:58] LABS: HEMATOCRIT 26.8 % (42-54); MEAN CORPUSCULAR HEMOGLOBIN 32.2 pg (27.0-33.0); MEAN CORPUSCULAR HGB CONC 34.3 g/dL (32.0-36.0); MEAN CORPUSCULAR VOLUME 93.7 fL (79-99); RED BLOOD CELL COUNT(AUTO) 2.86 MIL/uL (4.50-6.20); RED CELL DISTRIBUTION WIDTH 14.6 % (11.0-15.5); WHITE BLOOD COUNT (AUTO) 5.8 K/uL (4.8-10.8)
[2023-08-28 08:08] LABS: ALBUMIN 2.2 g/dL (3.5-5.0); CREATININE 0.9 mg/dL (0.5-1.3); POTASSIUM 3.1 mmol/L (3.5-5.1)
[2023-08-28 08:15] LABS: BILIRUBIN,TOTAL 3.5 mg/dL (0.2-1.0); TOTAL PROTEIN, SERUM 5.5 g/dL (6.0-8.3)
[2023-08-28 08:31] LABS: INR 1.46 (0.85-1.15); PROTHROMBIN TIME 16.7 SEC (9.6-11.6)
[2023-08-28 08:32] LABS: PARTIAL THROMBOPLASTIN TIME 32.9 SEC (26.3-35.5)
[2023-08-28] MEDS ORDERED: ALBUMIN (HUMAN) 25% 200 ML IV ONE (09:18)
[2023-08-28 11:53] VITALS: BP 124/75; PULSE 92; RESP 16; O2SAT 99
== END 2023-08-28 11:58 | disposition home or self-care (01) ==
LOC: EDH 06:50
DX: R18.8 Other ascites (principal); K74.60 Unspecified cirrhosis of liver; Z88.0 Allergy status to penicillin
CPT/HCPCS: 49083; 99285; 96365; 80053; 85027; 85610; 85730; 36415; P9046; C1729

== ENCOUNTER 2023-09-12 07:00 | Emergency (ER) | payer BC ==
[~2023-09-12] VITALS: Ht 177.8 cm; Wt 108.9 kg
[2023-09-12 07:50] LABS: BASOPHILS # (AUTO) 0.03 K/uL (0.00-0.20); BASOPHILS % (AUTO) 0.5 % (0.0-5.0); EOSINOPHILS # (AUTO) 0.57 K/uL (0.00-0.70); EOSINOPHILS % (AUTO) 9.1 % (0.0-8.0); HEMATOCRIT 26.8 % (42-54); IMMATURE GRANULOCYTE ABSOLUTE 0.03 K/uL (0-1); LYMPHOCYTES # (AUTO) 1.7 K/uL (1.0-4.8); LYMPHOCYTES % (AUTO) 27.8 % (21.0-51.0); MEAN CORPUSCULAR HEMOGLOBIN 31.7 pg (27.0-33.0); MEAN CORPUSCULAR HGB CONC 33.6 g/dL (32.0-36.0); MEAN CORPUSCULAR VOLUME 94.4 fL (79-99); MONOCYTES # (AUTO) 0.9 K/uL (0.1-1.0); MONOCYTES % (AUTO) 13.6 % (3.0-13.0); NEUTROPHILS % (AUTO) 48.5 % (40.0-77.0); PLATELET COUNT (AUTO) 67 K/uL (130-400); RED BLOOD CELL COUNT(AUTO) 2.84 MIL/uL (4.50-6.20); RED CELL DISTRIBUTION WIDTH 14.5 % (11.0-15.5); WHITE BLOOD COUNT (AUTO) 6.3 K/uL (4.8-10.8)
[2023-09-12 08:02] LABS: INR 1.52 (0.85-1.15); PROTHROMBIN TIME 17.4 SEC (9.6-11.6)
[2023-09-12 08:04] LABS: PARTIAL THROMBOPLASTIN TIME 36.5 SEC (26.3-35.5)
[2023-09-12 08:12] LABS: ALBUMIN 2.3 g/dL (3.5-5.0); CREATININE 0.7 mg/dL (0.5-1.3); POTASSIUM 3.5 mmol/L (3.5-5.1); TOTAL PROTEIN, SERUM 5.1 g/dL (6.0-8.3)
[2023-09-12] MEDS: ALBUMIN (HUMAN) 25% 200 ML IV ONE (08:52)
[2023-09-12 09:40] VITALS: BP 121/71; PULSE 89; RESP 20; O2SAT 100
== END 2023-09-12 10:02 | disposition home or self-care (01) ==
LOC: EDH 07:00
DX: R18.8 Other ascites (principal); K74.60 Unspecified cirrhosis of liver; E87.70 Fluid overload, unspecified; F17.200 Nicotine dependence, unspecified, uncomplicated; Z79.899 Other long term (current) drug therapy; Z98.890 Other specified postprocedural states; Z88.0 Allergy status to penicillin
CPT/HCPCS: 49083; 99285; 96365; 80053; 85025; 85610; 85730; 36415; P9046; C1729

== ENCOUNTER 2023-09-30 01:55 | Emergency (ER) | payer BC ==
[~2023-09-30] VITALS: Ht 177.8 cm; Wt 116.6 kg
[2023-09-30 02:42] VITALS: BP 124/68; PULSE 101; RESP 16; O2SAT 97
== END 2023-09-30 02:47 | disposition home or self-care (01) ==
LOC: EDH 01:55
DX: S61.212A Laceration without foreign body of right middle finger without damage to nail, initial encounter (principal); F17.200 Nicotine dependence, unspecified, uncomplicated; Z79.899 Other long term (current) drug therapy; Z88.0 Allergy status to penicillin; X58.XXXA Exposure to other specified factors, initial encounter; Y93.89 Activity, other specified; Y92.89 Other specified places as the place of occurrence of the external cause; Y99.8 Other external cause status
CPT/HCPCS: 12001; 99282

== ENCOUNTER 2023-12-12 23:50 | Emergency (ER) | payer BC ==
[~2023-12-12] VITALS: Ht 180.3 cm; Wt 120.2 kg
[~2023-12-12 23:50] MED LIST changes: -Folic Acid/Vitamin B Comp W-C PO; -MIDO5TAB4 PO; +SPIR25TA6 PO; +TAMS-1 PO
[2023-12-13 00:20] LABS: SARS-CoV-2, RNA, NAAT NEGATIVE SARS CoV-2 (NEGATIVE)
[2023-12-13 00:28] LABS: INFLUENZA TYPE A Negative For Type A (NEGATIVE); INFLUENZA TYPE B Negative For Type B (NEGATIVE)
[2023-12-13 00:31] LABS: BASOPHILS # (AUTO) 0.04 K/uL (0.00-0.20); BASOPHILS % (AUTO) 0.7 % (0.0-5.0); CREATININE 0.7 mg/dL (0.5-1.3); EOSINOPHILS # (AUTO) 0.67 K/uL (0.00-0.70); EOSINOPHILS % (AUTO) 12.1 % (0.0-8.0); HEMATOCRIT 27.9 % (42-54); IMMATURE GRANULOCYTE ABSOLUTE 0.02 K/uL (0-1); LYMPHOCYTES # (AUTO) 1.3 K/uL (1.0-4.8); MEAN CORPUSCULAR HEMOGLOBIN 31.2 pg (27.0-33.0); MEAN CORPUSCULAR HGB CONC 33.7 g/dL (32.0-36.0); MEAN CORPUSCULAR VOLUME 92.7 fL (79-99); MONOCYTES # (AUTO) 0.6 K/uL (0.1-1.0); MONOCYTES % (AUTO) 11.5 % (3.0-13.0); NEUTROPHILS # (AUTO) 2.9 K/uL (1.8-7.7); NEUTROPHILS % (AUTO) 52.3 % (40.0-77.0); PLATELET COUNT (AUTO) 86 K/uL (130-400); POTASSIUM 3.7 mmol/L (3.5-5.1); RED BLOOD CELL COUNT(AUTO) 3.01 MIL/uL (4.50-6.20); RED CELL DISTRIBUTION WIDTH 14.5 % (11.0-15.5); WHITE BLOOD COUNT (AUTO) 5.6 K/uL (4.8-10.8)
[2023-12-13 00:35] LABS: B-TYPE NATRIURETIC PEPTIDE 64 pg/mL (0-100)
[2023-12-13 00:38] LABS: ALBUMIN 2.3 g/dL (3.5-5.0); BILIRUBIN,TOTAL 4.1 mg/dL (0.2-1.0); TOTAL PROTEIN, SERUM 5.6 g/dL (6.0-8.3)
[2023-12-13] MEDS: LEVOFLOXACIN 750 MG/D5W 150 ML 150 ML IV ONE (03:10)
[2023-12-13] MEDS: KETOROLAC 15MG/ML VIAL (15MG/ML) IV ONE (03:10)
[2023-12-13 04:48] VITALS: BP 121/85; PULSE 89; RESP 18; O2SAT 97
[2023-12-13] MEDS: FUROSEMIDE 40MG VIAL IV ONE (05:11)
== END 2023-12-13 05:20 | disposition home or self-care (01) ==
LOC: EDH 23:50
DX: K70.31 Alcoholic cirrhosis of liver with ascites (principal); E87.70 Fluid overload, unspecified; F17.200 Nicotine dependence, unspecified, uncomplicated; Z79.899 Other long term (current) drug therapy; Z88.0 Allergy status to penicillin; Z20.822 Contact with and (suspected) exposure to COVID-19
CPT/HCPCS: 99284; 71045; 87635; 82550; 84484 ×2; 80053; 83880; 85025; 87040; 87804 ×2; 83605; 36415; 93005; 84145; 96365; 96375; J1956; J1940; J1885

== ENCOUNTER 2023-12-27 21:14 | Emergency (ER) | payer BC ==
[~2023-12-27] VITALS: Ht 177.8 cm; Wt 99.8 kg
[~2023-12-27 21:14] MED LIST changes: +CEFU500T67 PO; -FURO40TA5 PO; -LACT10SO9 PO; -PANT40TA54 PO; -PROP10TA10 PO; -RIFA550T PO; -SPIR25TA PO; -SPIR25TA6 PO; -TAMS-1 PO
[2023-12-27 22:22] LABS: BASOPHILS # (AUTO) 0.01 K/uL (0.00-0.20); BASOPHILS % (AUTO) 0.2 % (0.0-5.0); EOSINOPHILS # (AUTO) 0.23 K/uL (0.00-0.70); HEMATOCRIT 25.7 % (42-54); IMMATURE GRANULOCYTE ABSOLUTE 0.01 K/uL (0-1); LYMPHOCYTES # (AUTO) 0.9 K/uL (1.0-4.8); LYMPHOCYTES % (AUTO) 18.8 % (21.0-51.0); MEAN CORPUSCULAR HEMOGLOBIN 29.1 pg (27.0-33.0); MEAN CORPUSCULAR HGB CONC 31.5 g/dL (32.0-36.0); MEAN CORPUSCULAR VOLUME 92.4 fL (79-99); MONOCYTES # (AUTO) 0.5 K/uL (0.1-1.0); MONOCYTES % (AUTO) 10.6 % (3.0-13.0); NEUTROPHILS % (AUTO) 65.2 % (40.0-77.0); PLATELET COUNT (AUTO) 73 K/uL (130-400); RED BLOOD CELL COUNT(AUTO) 2.78 MIL/uL (4.50-6.20); RED CELL DISTRIBUTION WIDTH 14.7 % (11.0-15.5); WHITE BLOOD COUNT (AUTO) 4.6 K/uL (4.8-10.8)
[2023-12-27 22:33] LABS: CREATININE 0.8 mg/dL (0.5-1.3); POTASSIUM 3.7 mmol/L (3.5-5.1)
[2023-12-27 22:36] LABS: TOTAL PROTEIN, SERUM 5.6 g/dL (6.0-8.3)
[2023-12-27 22:53] LABS: B-TYPE NATRIURETIC PEPTIDE 28 pg/mL (0-100)
[2023-12-27 23:16] LABS: APPEARANCE,URINE CLEAR (CLEAR); BILIRUBIN,URINE 0.5 mg/dL (NEGATIVE); COLOR,URINE DARK-YELLOW (YELLOW); GLUCOSE, URINE (UA) NEGATIVE (NEGATIVE); KETONES,URINE 5 mg/dL (NEGATIVE); LEUKOCYTE ESTERASE ,URINE NEGATIVE Leu/uL (NEGATIVE); NITRATE,URINE NEGATIVE (NEGATIVE); PH,URINE 6.5 (5.0-8.0); PROTEIN,URINE 70 mg/dL (NEGATIVE)
[2023-12-27 23:18] VITALS: BP 132/76; PULSE 87; RESP 28; TEMP 98.5; O2SAT 96
[2023-12-27 23:20] LABS: ADD UA MICROSCOPIC YES
[2023-12-27 23:21] LABS: MUCUS,URINE FEW LPF (None Seen); RBC,URINE 0-1 /HPF (0-1); SQUAMOUS EPITHELIAL CELL,UR RARE /HPF (0-2)
[2023-12-27] MEDS: LACTULOSE 20 GM/30 ML UDCUP PO ONE (23:21)
[2023-12-27] MEDS ORDERED: AZIT250T9 PO (23:27)
== END 2023-12-27 23:55 | disposition home or self-care (01) ==
LOC: EDH 21:14
DX: E72.20 Disorder of urea cycle metabolism, unspecified (principal); J18.9 Pneumonia, unspecified organism; D63.8 Anemia in other chronic diseases classified elsewhere; F17.200 Nicotine dependence, unspecified, uncomplicated; Z79.899 Other long term (current) drug therapy; Z98.890 Other specified postprocedural states; Z88.0 Allergy status to penicillin
CPT/HCPCS: 36415; 70450; 71045; 80053; 81001; 82140; 83690; 83880; 84484; 85025; 93005

== ENCOUNTER 2024-03-24 05:48 | Inpatient (IN) | payer BC, MEDICAID ==
[~2024-03-24] VITALS: Ht 177.8 cm; Wt 96.0 kg
[2024-03-24] VITALS (7 sets, daily range): BP systolic 113–124; BP diastolic 65–75; PULSE 99–106; RESP 18–24; TEMP 97.7–98.4; O2SAT 94
[~2024-03-24 05:48] MED LIST changes: +AZIT250T9 PO
--- NOTE | 2024-03-24 06:20 | EKG ---
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
[2024-03-24 06:23] LABS: BASOPHILS # (AUTO) 0.07 K/uL (0.00-0.20); BASOPHILS % (AUTO) 0.4 % (0.0-5.0); EOSINOPHILS % (AUTO) 4.2 % (0.0-8.0); HEMATOCRIT 31.6 % (42-54); LYMPHOCYTES # (AUTO) 0.6 K/uL (1.0-4.8); LYMPHOCYTES % (AUTO) 3.2 % (21.0-51.0); MEAN CORPUSCULAR HEMOGLOBIN 27.3 pg (27.0-33.0); MEAN CORPUSCULAR HGB CONC 32.3 g/dL (32.0-36.0); MEAN CORPUSCULAR VOLUME 84.7 fL (79-99); MONOCYTES # (AUTO) 1.1 K/uL (0.1-1.0); MONOCYTES % (AUTO) 5.8 % (3.0-13.0); NEUTROPHILS # (AUTO) 16.5 K/uL (1.8-7.7); NEUTROPHILS % (AUTO) 85.9 % (40.0-77.0); PLATELET COUNT (AUTO) 107 K/uL (130-400); RED BLOOD CELL COUNT(AUTO) 3.73 MIL/uL (4.50-6.20); RED CELL DISTRIBUTION WIDTH 15.7 % (11.0-15.5); WHITE BLOOD COUNT (AUTO) 19.2 K/uL (4.8-10.8)
[2024-03-24] MEDS: FAMOTIDINE 20MG VIAL IV ONE ×2 (06:25→06:26)
[2024-03-24] MEDS: DiphenhydrAMINE HCL 50 MG/ML VIAL IV ONE (06:25)
[2024-03-24] MEDS: Solu-medROL 125MG VIAL ONE (06:26)
[2024-03-24] MEDS: DiphenhydrAMINE HCL 50 MG/ML VIAL ONE (06:26)
[2024-03-24] MEDS: Solu-medROL 125MG VIAL IVP ONE (06:26)
[2024-03-24 06:33] LABS: CREATININE 2.3 mg/dL (0.5-1.3); POTASSIUM 3.7 mmol/L (3.5-5.1)
[2024-03-24 06:46] LABS: B-TYPE NATRIURETIC PEPTIDE 14 pg/mL (0-100)
--- NOTE | 2024-03-24 06:51 | HMCIMG ---
CHEST 1VW HISTORY: Chest pain COMPARISON: 12/27/2023 FINDINGS: A frontal projection of the chest was obtained. Mild left lung pulmonary infiltrates are seen with small left pleural effusion. Mild congestive changes are seen. The heart is normal in size. Degenerative changes are seen. No evidence of aortic calcification is seen. IMPRESSION: 1. Mild left lung pulmonary infiltrates are seen with small left pleural effusion. Mild congestive changes are seen.
--- NOTE | 2024-03-24 06:54 | ERN ---
ED Note History of Present Illness Stated Complaint: CHEST PAIN, SHORTNESS OF BREATH, HIVES Chief Complaint: Chest Pain Time Seen by MD: 05:56 Dictation: This is a 49-year-old male with known history of alcoholic cirrhosis of the liver came into the ER with complaints of chest pain who wheezing and some shortness of breath. This just started last 2 days since Friday. He was hospitalized [facility] and underwent a paracentesis and he also underwent a month ago thoracentesis. He denied any fevers chills or rigors. He does give a history of a diffuse urticarial rash all over the body. He can not recall any unusual diet that he has eaten He does admit to cough and congestion with small amounts of mucopurulent sputum. Temperature 98.4 pulse 100 respirations 18 blood pressure 103/56 with a pulse oximetry of 98% on room air Allergies: Coded Allergies: Penicillins (Unverified Allergy, Severe, RASH, 12/23/23) full body rash Home Meds Active Scripts Azithromycin (Azithromycin) 250 Mg Tablet, 250 MG PO DAILY, #6 TAB Prov:SAUL CHO MD 12/27/23 Cefuroxime Axetil (Cefuroxime) 500 Mg Tablet, 500 MG PO Q12H for 10 Days, #20 TAB Prov:JAYE MENDEZ MD 12/26/23 Past Medical History Past Medical History: Liver Disease, Other Additional Past Medical Hx: HX OF CIRRHOSIS OF LIVER Surgical History: None Surgical History Other: PARACENTESIS Family History: HTN Social History: Smokers, ETOH, Lives with family RN Note Reviewed/Agreed w/PFSH: Yes Review of System Dictation Constitutional: Negative for fever,chills, and weight loss Eyes: Negative for injury, pain,redness, and discharge ENT: Negative for injury,pain or swelling Cardiovascular: Positive for chest pain, palpitations, and edema Respiratory: Positive for shortness of breath, cough, and wheezing, Abdomen/GI: Negative for abdominal pain, nausea, vomiting, diarrhea, and constipation Back: Negative for injury and pain : Negative for injury, bleeding and discharge MS/Extremity: Negative for injury and deformity Skin: Negative for rash, and discoloration Neuro: Negative for headache, weakness, numbness, tingling, and seizure Psych: Negative for suicide ideation, homicidal ideation, and hallucinations Initial Vital Sign VS Vital Signs Date Time Temp Pulse Resp B/P (MAP) Pulse Ox O2 Delivery O2 Flow Rate FiO2 03/24/24 06:08 98.4 100 18 103/56 98 Room Air* 0 21 Physical Exam Dictation General: awake, alert, NAD very pleasant male not in any acute respiratory distress, slightly jaundiced Head/Face: Normocephalic, atraumatic Eyes: PERRL, EOMI, vision at baseline ENT: oral cavity clear, TMs clear, no signs of infection Neck: Trachea midline, supple, no nuchal rigidity Cardiovascular: Tachycardia, normal S1/S2, No MRGs, no JVD Respiratory: Bilateral diffuse end expiratory wheezes Abdomen: Soft, non-tender, ascites positive normal bowel sounds, no guarding or rebound. Skin: Warm, dry, normal turgor, diffuse urticaria all over his body extremities MS/Extremity: Pulses equal, no cyanosis, neurovascular intact, FROM Neuro: COAx4, GCS 15, strength 5/5, CN 2-12 intact, normal cerebellar exam, normal gait, Psych: Normal behavior, mood, and affect normal Extremities-2 to 3+ edema without any palpable cords, Homans sign is negative Results (Laboratory/Radiology) Laboratory/Radiology Laboratory Tests Test 03/24/24 05:58 03/24/24 06:41 White Blood Count 19.2 K/uL (4.8-10.8) H Red Blood Count 3.73 MIL/uL (4.50-6.20) L Hemoglobin 10.2 g/dL (14.0-18.0) L Hematocrit 31.6 % (42-54) L Mean Corpuscular Volume 84.7 fL (79-99) Mean Corpuscular Hemoglobin 27.3 pg (27.0-33.0) Mean Corpuscular Hemoglobin Concent 32.3 g/dL (32.0-36.0) Red Cell Distribution Width 15.7 % (11.0-15.5) H Platelet Count 107 K/uL (130-400) L Mean Platelet Volume 9.9 fL (7.5-10.5) Immature Granulocyte % (Auto) 0.5 % (0-1) Neutrophils (%) (Auto) 85.9 % (40.0-77.0) H Lymphocytes (%) (Auto) 3.2 % (21.0-51.0) L Monocytes (%) (Auto) 5.8 % (3.0-13.0) Eosinophils (%) (Auto) 4.2 % (0.0-8.0) Basophils (%) (Auto) 0.4 % (0.0-5.0) Neutrophils # (Auto) 16.5 K/uL (1.8-7.7) H Lymphocytes # (Auto) 0.6 K/uL (1.0-4.8) L Monocytes # (Auto) 1.1 K/uL (0.1-1.0) H Eosinophils # (Auto) 0.80 K/uL (0.00-0.70) H Basophils # (Auto) 0.07 K/uL (0.00-0.20) Absolute Immature Granulocyte (auto 0.10 K/uL (0-1) Nucleated Red Blood Cells 0.0 % (0.0-0.19) White Cell Morphology Comment See comments Sodium Level 135 mmol/L (136-145) L Potassium Level 3.7 mmol/L (3.5-5.1) Chloride Level 98 mmol/L (101-111) L Carbon Dioxide Level 27 mmol/L (21-32) Blood Urea Nitrogen 24 mg/dL (7-18) H Creatinine 2.3 mg/dL (0.5-1.3) H Glomerular Filtration Rate Calc 34 mL/min (>90) Random Glucose 72 mg/dL (70-105) Total Calcium 7.4 mg/dL (8.5-10.1) L Total Creatine Kinase 51 U/L (21-232) # B-Type Natriuretic Peptide 14 pg/mL (0-100) Troponin I < 0.05 ng/mL (0.00-0.05) Labs Reviewed?: Yes ED Course ED Course Orders Procedure Category Date Status Time Vital Signs Per CPOE 03/24/24 Transmitted Routine 05:51 B-Type Natriuretic LAB 03/24/24 Complete Peptide 05:51 Chest 1vw RAD 03/24/24 Resulted 05:51 12 Lead Ekg Tracing- EKG 03/24/24 Complete Technical 05:51 Oxygen By Nc/Pulse Ox CPOE 03/24/24 Transmitted 05:51 Maintain Iv CPOE 03/24/24 Transmitted 05:51 Iv Insertion CPOE 03/24/24 Transmitted 05:51 Cardiac Monitoring CPOE 03/24/24 Transmitted 05:51 Pulse Oximetry With CPOE 03/24/24 Transmitted Vs And Prn 05:51 Cbc With Differential LAB 03/24/24 Complete 05:51 Activity: Br W/Brp CPOE 03/24/24 Transmitted With Assist 05:51 Creatine Kinase, Total LAB 03/24/24 Complete 05:51 Urinalysis Profile LAB 03/24/24 Logged 05:51 Troponin Poc Order LAB 03/24/24 Complete Only 05:51 Bedside Troponin-I LAB.ER 03/24/24 In Process (Poc) 05:51 Basic Metabolic Panel LAB 03/24/24 Complete 05:51 Methylprednisolone PHA 03/24/24 Complete Succ 125mg (Solu-Medr 06:30 Diphenhydramine Hcl PHA 03/24/24 Complete (Benadryl Inj) 06:30 Famotidine 20mg Vial PHA 03/24/24 Complete (Pepcid 20mg Vial) 06:30 Diphenhydramine Hcl PHA 03/24/24 Complete (Benadryl Inj) 06:19 Methylprednisolone PHA 03/24/24 Complete Succ 125mg (Solu-Medr 06:19 Famotidine 20mg Vial PHA 03/24/24 Complete (Pepcid 20mg Vial) 06:19 Blood Cult SADAF 03/24/24 In Process 06:51 Meropenem (Merrem) PHA 03/24/24 In Process 07:00 Ammonia LAB 03/24/24 Logged 08:27 Current Medications Medications (Trade) Dose Ordered Sig/Dorothy Route PRN Reason Start Time Stop Time Status Last Admin Dose Admin Diphenhydramine HCl (BENAdryl INJ) 25 mg ONCE ONCE IV 03/24/24 06:30 03/24/24 06:31 DC 03/24/24 06:25 Diphenhydramine HCl (BENAdryl INJ) 50 mg STK-MED ONCE .ROUTE 03/24/24 06:19 03/24/24 06:19 DC Famotidine (Pepcid 20mg Vial) 20 mg ONCE ONCE IV 03/24/24 06:30 03/24/24 06:31 DC 03/24/24 06:25 Famotidine (Pepcid 20mg Vial) 20 mg STK-MED ONCE IV 03/24/24 06:19 03/24/24 06:20 DC Meropenem 1 gm/ Sodium Chloride 100 ml @ 33.333 mls/ hr Q12H IV 03/24/24 07:00 04/03/24 06:59 Methylprednisolone Sodium Succinate (Solu-medROL 125MG) 60 mg ONCE ONCE IVP 03/24/24 06:30 03/24/24 06:31 DC 03/24/24 06:26 Methylprednisolone Sodium Succinate (Solu-medROL 125MG) 125 mg STK-MED ONCE .ROUTE 03/24/24 06:19 03/24/24 06:19 DC Vital Signs Date Time Temp Pulse Resp B/P (MAP) Pulse Ox O2 Delivery O2 Flow Rate FiO2 03/24/24 06:08 98.4 100 18 103/56 98 Room Air* 0 21 We will perform diagnostic labs, advanced imaging and administer medications according to the patient's complaint. Once the results are available, will review and personally interpreted the labs to rule out any acute life- threatening emergency the trach require immediate intervention and treatment. I will then re-evaluate the patient after treatment and diagnostic exams have return to determine whether the patient requires any further testing, can safely be discharged home or need further admission to hospital for additional treatment and evaluation. Medical Decision Making MDM MDM: Differential diagnosis: Allergic reaction, anaphylaxis, pneumonia, pulmonary edema Rationale: Tests considered and ordered secondary to shared decision making include: labs, ECG and radiology Previous outside records reviewed: Old ER visits. Risk of complication and/or morbidity or mortality of patient management: None Medications-Per medication reconciliation Need for hospitalization: Patient does meet criteria for hospitalization. Need for emergency major/minor surgery: No There are no social concerns with this patient. Prescription drug management Prescriptions will include symptomatic care Patient's prior external medical records from other ER visits were reviewed by me as indicated. Prior testing and results from previous visits were reviewed. Prior tests were taken into account with medical decision making and resource utilization, independent historian/historians were used to obtain complete medical history. I independently interpreted the test that were performed, results were reviewed by me and considered findings on radiology if ordered. Medical management and examination interpretation discussions were had by me with other qualified healthcare professionals as indicated for the patient's care. Patient will be admitted under the care of hospitalist group for ongoing management. Problem List Problem List: (1) Chest pain (2) Cirrhosis of liver (3) Liver lesion (4) Hyperbilirubinemia (5) Lower extremity edema (6) Ascites due to chronic alcoholic hepatitis (7) Status post abdominal paracentesis (8) Volume overload Critical Care Note Comment(s) Critical Care Procedure Note Authorized and Performed by: me Total critical care time: Approximately 36 minutes Due to a high probability of clinically significant, life threatening deterioration, the patient required my highest level of preparedness to intervene emergently and I personally spent this critical care time directly and personally managing the patient. This critical care time included obtaining a history; examining the patient; pulse oximetry; ordering and review of studies; arranging urgent treatment with development of a management plan; evaluation of patient's response to treatment; frequent reassessment; and, discussions with other providers. This critical care time was performed to assess and manage the high probability of imminent, life-threatening deterioration that could result in multi-organ failure. It was exclusive of separately billable procedures and treating other patients and teaching time. Please see MDM section and the rest of the note for further information on patient assessment and treatment. DX & DISP Disposition: Inpatient Decision to Admit Time: 08:27 Departure Impression: Primary Impression: Chest pain Additional Impressions: Volume overload, Sepsis, Cirrhosis of liver with ascites, Pneumonia involving left lung, Pleural effusion Condition: Stable Additional Instructions: Patient was informed of all the diagnostic labs and procedures conducted in the emergency room today and demonstrated understanding of the results. I personally reviewed and interpreted all the diagnostic exams performed in the ER today. The patient will be admitted to the hospital for further treatment and evaluation. Disposition-admit to facility Condition-stable/guarded Course-uncertain at this time Pain status-decreased Assessment-exam unchanged Admission Certification- I certify that the patients status is appropriate and is based on my best clinical judgment and the patient's condition as documented in the medical records Referrals: CHEPE HERNANDEZ (PCP) SHAHID GAVIN MD Mar 24, 2024 06:54 MIESHA AMBRIZ MD Mar 24, 2024 08:27
--- NOTE | 2024-03-24 07:15 | NUR ---
REPORT GIVEN TO HARRY TALAVERA
[2024-03-24] MEDS: MEROPENEM 1 GM VIAL ONE (09:29)
[2024-03-24] MEDS: MEROPENEM 1 GM in 0.9%NACL 100ML 100 ML IV SCH (09:29)
[2024-03-24 09:52] LABS: INR 2.34 (0.85-1.15); PROTHROMBIN TIME 23.7 SEC (9.6-11.6)
[2024-03-24 09:53] LABS: PARTIAL THROMBOPLASTIN TIME 36.9 SEC (26.3-35.5)
--- NOTE | 2024-03-24 09:59 | HP ---
[facility] PHYS[facility] Date of Service: Mar 24, 2024 Time of Service: 09:47 HISTORY OF PRESENT ILLNESS: Date of service: 03/24/2024 49-year-old male with past medical history of liver cirrhosis, history of recurrent ascites needing paracentesis who presented to the hospital secondary to shortness of breath. The patient states that since yesterday he has been feeling short of breath which is present at rest and with exertion. He also complains of cough without any sputum production. He felt his cough triggered midsternal chest pain which resolved after a few minutes. He denied any paresthesias, diaphoresis, nausea, vomiting associated with the pain. Denied any melena, hematochezia, hematemesis, fever, chills, dysuria, hematuria. Patient states he had paracentesis done few days ago and he had also underwent a thoracentesis around a month ago. Denied any falls, syncopal episode. Patient denied any chest pain when seen at bedside. He sees GI as outpatient and is compliant with a low-salt diet. He is also on diuretics at home. While at home patient also noted that he had rash involving the lower extremity, chest and face. He felt it was hives. He denied being on any new medications including antibiotics. His rash improved after receiving medications in the ED. Labs were notable for white count of white count of 19.2, hemoglobin was 10.2, platelet count was low at 107 K, sodium was 135, potassium was 3.7, creatinine was 2.3. Patient underwent chest x-ray which showed left-sided pleural effusion In the ED the patient received Solu-Medrol,, famotidine, meropenem REVIEW OF SYSTEMS CONSTITUTIONAL: Denies fevers, chills, or night sweats. No unintentional weight loss reported. Positive for decreased appetite NEUROLOGICAL: Denies headache, amaurosis fugax, motor weakness, sensory deficit, vertigo/spinning sensation, gait abnormalities, or tremors. ENT: No hearing loss, otalgia, otorrhea, rhinitis, rhinorrhea, hoarseness, or sore throat. CARDIOVASCULAR: Denies any exertional angina, dyspnea on exertion, orthopnea, paroxysmal nocturnal dyspnea, palpitations, life-threatening arrhythmias, claudication. PULMONARY: Positive for shortness of breath, cough. Denied any sputum production GASTROINTESTINAL: Denies any type of dysphagia to either liquids or solids. Denies nausea, vomiting, pyrosis, early satiety, abdominal pain, diarrhea, constipation, or changes in stool consistency or caliber. Denies coffee-ground emesis, hematemesis, hematochezia, or melanotic stools. GENITOURINARY: Denies frequency, urgency, nocturia, hematuria or incontinence (Storage/Irritative symptoms.) Low urinary stream, straining to void, urinary intermittency or hesitancy, splitting of the voiding stream, terminal dribbling. ENDOCRINOLOGIC: Denies polyuria, polydipsia, polyphagia or heat/cold intolerances. HEMATOLOGIC: Denies thrombophilia/previous clots, or coagulopathy/bleeding disorders. ONCOLOGIC: Denies personal history of malignancy. DERMATOLOGIC: Denies rashes or pruritus. PSYCHIATRIC: Denies any suicidal or homicidal ideation. Denies hallucinations. PAST MEDICAL HISTORY: Liver cirrhosis PAST SURGICAL HISTORY: History of paracentesis, history of thoracentesis PAST SOCIAL HISTORY: Denied smoking, alcohol, drug use FAMILY HISTORY: Denied any pertinent family history Coded Allergies: Penicillins (Unverified Allergy, Severe, RASH, 12/23/23) full body rash PHYSICAL EXAM GENERAL APPEARANCE: The patient is awake, alert, and oriented, in no acute cardiopulmonary distress. NEUROLOGICAL: Cranial nerves II-XII grossly intact. Motor is 5/5 in bilateral upper and lower extremities proximal to distal. No sensory deficits. HEENT: Face is symmetric. Pupils are equal and reactive. Extraocular movements are intact. NECK: Supple. No JVD. No thyromegaly. No submental, submandibular, pre- /postauricular, occipital or supraclavicular lymphadenopathy. CHEST: Normal chest expansion. No Telemetry. LUNGS: He has decreased breath sounds on the left side CARDIOVASCULAR: Regular. S1 and S2 normal. No appreciable rubs, murmurs or gallops. ABDOMEN: Soft, generalized mild tenderness, and nondistended. There is no rebound, voluntary guarding, or rigidity. : Deferred. No Rangel. EXTREMITIES: 3+ pitting edema in the lower extremity bilaterally not cyanotic. No clubbing. Good capillary refill. SKIN: No skin breakdown. Vital Sign (Last 24 Hours) 03/24/24 03/24/24 06:08 08:00 Temp 97.9 Pulse 100 Resp 22 B/P (MAP) 123/75 Pulse Ox 99 O2 Delivery Room Air O2 Flow Rate 0 FiO2 21 LABS: Laboratory: Test 03/24/24 06:41 03/24/24 05:58 Range/Units Troponin I < 0.05 0.00-0.05 ng/mL White Blood Count 19.2 H 4.8-10.8 K/uL Red Blood Count 3.73 L 4.50-6.20 MIL/uL Hemoglobin 10.2 L 14.0-18.0 g/dL Hematocrit 31.6 L 42-54 % Mean Corpuscular Volume 84.7 79-99 fL Mean Corpuscular Hemoglobin 27.3 27.0-33.0 pg Mean Corpuscular Hemoglobin Concent 32.3 32.0-36.0 g/dL Red Cell Distribution Width 15.7 H 11.0-15.5 % Platelet Count 107 L 130-400 K/uL Mean Platelet Volume 9.9 7.5-10.5 fL Immature Granulocyte % (Auto) 0.5 0-1 % Neutrophils (%) (Auto) 85.9 H 40.0-77.0 % Lymphocytes (%) (Auto) 3.2 L 21.0-51.0 % Monocytes (%) (Auto) 5.8 3.0-13.0 % Eosinophils (%) (Auto) 4.2 0.0-8.0 % Basophils (%) (Auto) 0.4 0.0-5.0 % Neutrophils # (Auto) 16.5 H 1.8-7.7 K/uL Lymphocytes # (Auto) 0.6 L 1.0-4.8 K/uL Monocytes # (Auto) 1.1 H 0.1-1.0 K/uL Eosinophils # (Auto) 0.80 H 0.00-0.70 K/uL Basophils # (Auto) 0.07 0.00-0.20 K/uL Absolute Immature Granulocyte (auto 0.10 0-1 K/uL Nucleated Red Blood Cells 0.0 0.0-0.19 % White Cell Morphology Comment See comments Sodium Level 135 L 136-145 mmol/L Potassium Level 3.7 3.5-5.1 mmol/L Chloride Level 98 L 101-111 mmol/L Carbon Dioxide Level 27 21-32 mmol/L Blood Urea Nitrogen 24 H 7-18 mg/dL Creatinine 2.3 H 0.5-1.3 mg/dL Glomerular Filtration Rate Calc 34 >90 mL/min Random Glucose 72 70-105 mg/dL Total Calcium 7.4 L 8.5-10.1 mg/dL Total Creatine Kinase 51 # 21-232 U/L B-Type Natriuretic Peptide 14 0-100 pg/mL Current Medications Medications (Trade) Dose Ordered Sig/Dorothy Route PRN Reason Start Time Stop Time Status Last Admin Dose Admin Famotidine (Pepcid 20mg Vial) 20 mg Q48H IV 03/24/24 21:00 04/23/24 20:59 Magnesium Sulfate 50 ml @ 0 mls/hr PROTOCOL PRN IV hypomagnesemia 03/24/24 10:00 04/23/24 09:59 Meropenem 1 gm/ Sodium Chloride 100 ml @ 33.333 mls/ hr Q12H IV 03/24/24 07:00 03/24/24 09:37 DC 03/24/24 09:29 33.333 MLS/HR Potassium Chloride 100 ml @ 100 mls/hr AD PRN IV POTASSIUM PROTOCOL 03/24/24 10:00 04/23/24 09:59 Potassium Chloride (K-Dur/Klor-Con 20meq) 20 meq AD PRN PO POTASSIUM PROTOCOL 03/24/24 10:00 04/23/24 09:59 Potassium Chloride (KCl 10% Elixir 20meq/15ml) 20 meq AD PRN PO POTASSIUM PROTOCOL 03/24/24 10:00 04/23/24 09:59 DIAGNOSTICS / RADIOLOGY: [ ] ASSESSMENT: Symptomatic left-sided pleural effusion POA Decompensated liver cirrhosis POA SBP rule out Chest pain likely secondary to coughing Generalized abdominal pain differential SBP versus GI etiology versus ascites Acute kidney injury Volume overload Thrombocytopenia Generalized hives Possible sepsis rule out Normocytic anemia PLAN: - patient to be admitted to PCCU -in reference to symptomatic pleural effusion. We will request consultation with pulmonology for evaluation of thoracentesis. - In reference to leukocytosis. Patient will continue on meropenem. We will obtain a CT abdomen pelvis. If patient has sufficient ascites we will consider paracentesis to rule out SBP. Obtain PT and PTT -in reference to acute kidney injury. Obtain urine sodium, urine creatinine, urinalysis. Request consultation with Nephrology -TSH, A1c, procalcitonin -in reference to chest pain this was likely in setting of coughing. Trend troponins q.6 hours. Also obtain echocardiogram - in reference to hives/urticaria. Patient's rash has improved. We will closely monitor. -further orders per hospitalization course. -obtain home medications which will be reconciled once available Advanced Care Planning Which of the following were discussed: Hospice care: Yes __ No _x_ Therapeutic options: Yes __ No __ Advance directives: Yes __ No __ Other discussions: Pt is full code Discussed with who?: patient (Patient, family or surrogates) Voluntary nature of this service was explained to the patient? Yes _x No __ Amount of time spent: 25 minutes SKYLAR Blake MD, MD Mar 24, 2024 09:59
[2024-03-24] MEDS ORDERED: PoTASSium chloRIDE 20MEQ/100ML 100 ML IV PRN (10:00)
[2024-03-24 10:06] LABS: THYROID STIMULATING HORMONE 2.19 uIU/mL (0.36-3.74)
[2024-03-24 10:10] LABS: HEMOGLOBIN A1C 4.7 % (4.0-6.0)
--- NOTE | 2024-03-24 10:15 | NUR ---
SPOUSE TO BRING HOME MEDICATIONS.
[2024-03-24 10:19] LABS: ALBUMIN 2.2 g/dL (3.5-5.0); BILIRUBIN,DIRECT 4.4 mg/dL (0.0-0.3); BILIRUBIN,TOTAL 7.8 mg/dL (0.2-1.0); TOTAL PROTEIN, SERUM 4.9 g/dL (6.0-8.3)
--- NOTE | 2024-03-24 10:21 | HMCIMG ---
CT ABDOMEN/PELVIS W/O CONTRAST HISTORY: Abdominal pain COMPARISON: 10/09/2023 TECHNIQUE: Multiple sequential axial images of the abdomen and pelvis were obtained from the dome of the diaphragm through symphysis pubis. Patient was not given contrast through intravenous route. Oral contrast was not given. FINDINGS: There are bilateral pleural effusions with compressive atelectasis with left more than right. There is no evidence of parenchymal disease or pulmonary nodule of the visualized lower lungs. Degenerative changes of the thoracolumbar spine are present. The heart is not enlarged. Liver measures 15 cm. The spleen is enlarged measuring 16 cm. There are abdominal varices. There is anasarca. The liver, spleen, adrenal glands and pancreas are unremarkable. There is no evidence of hydronephrosis bilaterally. No evidence of renal stone is seen. Fecal material is seen in the colon. There are normal size retroperitoneal and mesenteric lymph nodes. There is small ascites. Atherosclerotic changes are present. Pelvic sidewalls are symmetric bilaterally. Bladder is well distended without wall thickening. IMPRESSION: 1. Cirrhotic liver with enlarged spleen and abdominal varices and small ascites. Bilateral pleural effusions with left more than right with compressive atelectasis. This was seen on previous study. CT was performed with one or more following dose reduction techniques: automated exposure control, adjustment of the mA and kv according to patient's size, or use of a iterative reconstruction technique.
[2024-03-24] MEDS ORDERED: COMPOUND IV MISC 1 EACH IVSOLN MISC PRN (10:30)
[2024-03-24 10:52] LABS: APPEARANCE,URINE TURBID (CLEAR); BILIRUBIN,URINE 2 mg/dL (NEGATIVE); COLOR,URINE DARK-YELLOW (YELLOW); GLUCOSE, URINE (UA) NEGATIVE (NEGATIVE); KETONES,URINE NEGATIVE (NEGATIVE); LEUKOCYTE ESTERASE ,URINE NEGATIVE Leu/uL (NEGATIVE); NITRATE,URINE NEGATIVE (NEGATIVE); PROTEIN,URINE 30 mg/dL (NEGATIVE)
[2024-03-24 10:57] LABS: CREATININE,URINE RANDOM 336.27 mg/dL (30-135); SODIUM,URINE RANDOM < 13 mmol/l (40-220)
[2024-03-24 10:59] LABS: ADD UA MICROSCOPIC YES
[2024-03-24 11:42] LABS: BACTERIA,URINE Rare /HPF (None Seen); RBC,URINE 0-1 /HPF (0-1); SQUAMOUS EPITHELIAL CELL,UR 0-2 /HPF (0-2); WBC,URINE 0-1 /HPF (0-1)
--- NOTE | 2024-03-24 12:00 | NUR ---
U/S GD PARACENTESIS PROCEDURE PERFORMED BY DR Angel SIBLEY. PUNCTURE SITE RLQ AND PATIENT TOLERATED PROCEDURE WELL. TOTAL REMOVED 1 LITER OF CLOUDY YELLOW FLUID. END OF PROCEDURE AT 1150. CATHETER REMOVED AND DRESSING APPLIED. NO BLEEDING NOTED. REPORT GIVEN TO Fanny OSHEA RN AND PATIENT TRANSPORTED TO ED-18 VIA STRETCHER AT 1200. AAO X3 WITH NO C/O PAIN. SPECIMEN SENT TO LAB.
[2024-03-24] MEDS: PHYTONADIONE 10 MG in 0.9%NACL 50ML 50 ML IVPB ONE (12:16)
[2024-03-24 14:18] LABS: BODY FLUID RBC 6683 /cu. mm.; BODY FLUID WBC 6376 /cu. mm.
--- NOTE | 2024-03-24 14:35 | CONS ---
NEPHROLOGY CONSULTATION NOTE Date/Time Patient Seen: Mar 24, 2024 1350 Reason for Consultation: Shortness of breath, acute renal failure, HISTORY OF PRESENT ILLNESS: This is a 49-year-old male with a past medical history of alcoholic liver cirrhosis with the current paracentesis. He presented to the emergency with complaints of shortness of breath, cough and phlegm. S/p paracentesis earlier today. Chest x-ray showed left-sided pleural effusion. He was noted with elevated BUN/creatinine. We are consulted for renal failure. Renal function remains elevated Electrolytes are stable. He was seen in the emergency room, in no acute distress No family at the bedside Prognosis remains guarded REVIEW OF SYSTEMS: GENERAL: Positive for shortness of breath NEUROLOGIC: Negative for any blurry vision, blind spots, double vision, facial asymmetry, dysphagia, dysarthria, hemiparesis, hemisensory deficits, vertigo, ataxia. HEENT: Negative for any head trauma, neck trauma, neck stiffness, photophobia, phonophobia, sinusitis, rhinitis. CARDIAC: Negative for any chest pain, dyspnea on exertion, paroxysmal nocturnal dyspnea, peripheral edema. PULMONARY: Negative for any shortness of breath, wheezing, COPD, or TB exposure. GASTROINTESTINAL: Negative for any abdominal pain, nausea, vomiting, bright red blood per rectum, melena. GENITOURINARY: Negative for any dysuria, hematuria, incontinence. INTEGUMENTARY: Negative for any rashes, cuts, insect bites. RHEUMATOLOGIC: Negative for any joint pains, photosensitive rashes, history of vasculitis or kidney problems. HEMATOLOGIC: Negative for any abnormal bruising, frequent infections or bleeding. PAST MEDICAL HISTORY: Liver cirrhosis PAST SURGICAL HISTORY: Recurrent paracentesis Thoracentesis PAST SOCIAL HISTORY: Denies use of tobacco or illicit drugs History of alcohol abuse FAMILY HISTORY: Noncontributory PHYSICAL EXAM: GENERAL: Alert and oriented x 3. No acute distress. Well-nourished. EYES: EOMI. Anicteric. HENT: Moist mucous membranes. No scleral icterus. No cervical lymphadenopathy. LUNGS: Clear to auscultation bilaterally. No accessory muscle use. CARDIOVASCULAR: Regular rate and rhythm. No murmur. No JVD. ABDOMEN: Soft, non-tender and non-distended. No palpable masses. EXTREMITIES: No edema. Non-tender. SKIN: No rashes or lesions. Warm. NEUROLOGIC: No focal neurological deficits. CN II-XII grossly intact, but not individually tested. PSYCHIATRIC: Cooperative. Appropriate mood and affect. MEDICATIONS: [ ] Current Medications Medications (Trade) Dose Ordered Sig/Dorothy Route PRN Reason Start Time Stop Time Status Last Admin Dose Admin Albumin Human 50 ml @ 25 mls/hr Q8H5 IV 03/24/24 21:00 03/25/24 14:59 Famotidine (Pepcid 20mg Vial) 20 mg Q48H IV 03/24/24 21:00 04/23/24 20:59 Magnesium Sulfate 50 ml @ 0 mls/hr PROTOCOL PRN IV hypomagnesemia 03/24/24 10:00 04/23/24 09:59 Meropenem 1 gm/ Sodium Chloride 100 ml @ 33.333 mls/ hr Q12H IV 03/24/24 07:00 03/24/24 09:37 DC 03/24/24 09:29 33.333 MLS/HR Meropenem 1 gm/ Sodium Chloride 100 ml @ 33.333 mls/ hr Q12H IVPB 03/24/24 21:30 04/03/24 21:29 Potassium Chloride 100 ml @ 100 mls/hr AD PRN IV POTASSIUM PROTOCOL 03/24/24 10:00 04/23/24 09:59 Potassium Chloride (K-Dur/Klor-Con 20meq) 20 meq AD PRN PO POTASSIUM PROTOCOL 03/24/24 10:00 04/23/24 09:59 Potassium Chloride (KCl 10% Elixir 20meq/15ml) 20 meq AD PRN PO POTASSIUM PROTOCOL 03/24/24 10:00 04/23/24 09:59 Thiamine HCl (Vitamin B-1) 100 mg DAILY IVP 03/25/24 09:00 04/24/24 08:59 Vitamin B Complex/ Vit C/Folic Acid (Nephrovite Tablet) 1 cap DAILY PO 03/25/24 09:00 04/24/24 08:59 Vital Signs (last 8hr) Date Time Temp Pulse Resp B/P (MAP) Pulse Ox O2 Delivery O2 Flow Rate FiO2 03/24/24 12:00 97.7 103 18 115/65 97 Room Air 03/24/24 08:00 97.9 100 22 123/75 99 Room Air DIAGNOSTICS / RADIOLOGY: REASON: generalized abdominal pain, cirrhosis ORDERING PHYSICIAN: SKYLAR HUFF MD PROCEDURE: ABD PEL WO - CT ABDOMEN/PELVIS W/O CONTRAST CT ABDOMEN/PELVIS W/O CONTRAST HISTORY: Abdominal pain COMPARISON: 10/09/2023 TECHNIQUE: Multiple sequential axial images of the abdomen and pelvis were obtained from the dome of the diaphragm through symphysis pubis. Patient was not given contrast through intravenous route. Oral contrast was not given. FINDINGS: There are bilateral pleural effusions with compressive atelectasis with left more than right. There is no evidence of parenchymal disease or pulmonary nodule of the visualized lower lungs. Degenerative changes of the thoracolumbar spine are present. The heart is not enlarged. Liver measures 15 cm. The spleen is enlarged measuring 16 cm. There are abdominal varices. There is anasarca. The liver, spleen, adrenal glands and pancreas are unremarkable. There is no evidence of hydronephrosis bilaterally. No evidence of renal stone is seen. Fecal material is seen in the colon. There are normal size retroperitoneal and mesenteric lymph nodes. There is small ascites. Atherosclerotic changes are present. Pelvic sidewalls are symmetric bilaterally. Bladder is well distended without wall thickening. IMPRESSION: 1. Cirrhotic liver with enlarged spleen and abdominal varices and small ascites. Bilateral pleural effusions with left more than right with compressive atelectasis. This was seen on previous study. CT was performed with one or more following dose reduction techniques: automated exposure control, adjustment of the mA and kv according to patient's size, or use of a iterative reconstruction technique. DICTATED BY: ERIN SIBLEY MD DATE: 03/24/24 1017 REASON: CHEST PAIN ORDERING PHYSICIAN: SHAHID GAVIN MD PROCEDURE: CXR1VW - CHEST 1VW CHEST 1VW HISTORY: Chest pain COMPARISON: 12/27/2023 FINDINGS: A frontal projection of the chest was obtained. Mild left lung pulmonary infiltrates are seen with small left pleural effusion. Mild congestive changes are seen. The heart is normal in size. Degenerative changes are seen. No evidence of aortic calcification is seen. IMPRESSION: 1. Mild left lung pulmonary infiltrates are seen with small left pleural effusion. Mild congestive changes are seen. DICTATED BY: ERIN SIBLEY MD DATE: 03/24/24 0646 LABORATORY: [ ] Hematology Labs: Test 03/24/24 05:58 Range/Units White Blood Count 19.2 H 4.8-10.8 K/uL Red Blood Count 3.73 L 4.50-6.20 MIL/uL Hemoglobin 10.2 L 14.0-18.0 g/dL Hematocrit 31.6 L 42-54 % Mean Corpuscular Volume 84.7 79-99 fL Mean Corpuscular Hemoglobin 27.3 27.0-33.0 pg Mean Corpuscular Hemoglobin Concent 32.3 32.0-36.0 g/dL Red Cell Distribution Width 15.7 H 11.0-15.5 % Platelet Count 107 L 130-400 K/uL Mean Platelet Volume 9.9 7.5-10.5 fL Immature Granulocyte % (Auto) 0.5 0-1 % Neutrophils (%) (Auto) 85.9 H 40.0-77.0 % Lymphocytes (%) (Auto) 3.2 L 21.0-51.0 % Monocytes (%) (Auto) 5.8 3.0-13.0 % Eosinophils (%) (Auto) 4.2 0.0-8.0 % Basophils (%) (Auto) 0.4 0.0-5.0 % Neutrophils # (Auto) 16.5 H 1.8-7.7 K/uL Lymphocytes # (Auto) 0.6 L 1.0-4.8 K/uL Monocytes # (Auto) 1.1 H 0.1-1.0 K/uL Eosinophils # (Auto) 0.80 H 0.00-0.70 K/uL Basophils # (Auto) 0.07 0.00-0.20 K/uL Absolute Immature Granulocyte (auto 0.10 0-1 K/uL Nucleated Red Blood Cells 0.0 0.0-0.19 % White Cell Morphology Comment See comments Chemistry Labs: Test 03/24/24 09:35 03/24/24 06:41 03/24/24 05:58 Range/Units Total Bilirubin 7.8 H 0.2-1.0 mg/dL Direct Bilirubin 4.4 H 0.0-0.3 mg/dL Aspartate Amino Transf (AST/SGOT) 30 10-37 U/L Alanine Aminotransferase (ALT/SGPT) 12 12-78 U/L Alkaline Phosphatase 77 50-136 U/L Ammonia 15 11-32 umol/L Troponin I High Sensitivity < 4 L 4-75 ng/L Total Protein 4.9 L 6.0-8.3 g/dL Albumin 2.2 L 3.5-5.0 g/dL Troponin I < 0.05 0.00-0.05 ng/mL Sodium Level 135 L 136-145 mmol/L Potassium Level 3.7 3.5-5.1 mmol/L Chloride Level 98 L 101-111 mmol/L Carbon Dioxide Level 27 21-32 mmol/L Blood Urea Nitrogen 24 H 7-18 mg/dL Creatinine 2.3 H 0.5-1.3 mg/dL Glomerular Filtration Rate Calc 34 >90 mL/min Random Glucose 72 70-105 mg/dL Hemoglobin A1c 4.7 4.0-6.0 % Estimated Average Glucose (eAG) 88 70-126 mg/dL Total Calcium 7.4 L 8.5-10.1 mg/dL Total Creatine Kinase 51 # 21-232 U/L C-Reactive Protein, Quantitative 107.30 H 0.5-3.0 mg/L B-Type Natriuretic Peptide 14 0-100 pg/mL Procalcitonin 5.84 H 0.05-0.5 ng/mL Thyroid Stimulating Hormone (TSH) 2.19 # 0.36-3.74 uIU/mL Coagulation Labs: Test 03/24/24 05:58 Range/Units Prothrombin Time 23.7 H 9.6-11.6 SEC Prothromb Time International Ratio 2.34 H 0.85-1.15 Activated Partial Thromboplast Time 36.9 H 26.3-35.5 SEC ASSESSMENT: Acute kidney injury Volume overload Symptomatic left-sided pleural effusion Decompensated liver cirrhosis SBP rule out Chest pain Generalized abdominal pain differential SBP versus GI etiology versus ascites Thrombocytopenia Generalized hives Possible sepsis rule out Normocytic anemia PLAN: Patient may have hepatorenal syndrome patient condition is critical Labs, diagnostic, radiologic exams reviewed and interpreted by myself and supervising physician. We have reviewed external records in detail Start [id number] g IV q.8 hours x3 doses Start thiamine 100 mg IV daily, Nephro-Ria p.o. daily Please renally adjust medications Obtain UA, urine electrolytes, urine creatinine, urine osmolality Require close monitoring of renal function and electrolytes Order CBC, CMP, uric acid, TSH and electrolytes in am Continue with antibiotics Renal diabetic diet BiPAP as necessary, for respiratory distress Monitor blood pressure adjust medication doses as needed Avoid hypotensive episodes May use Dilaudid 0.5 mg IV every 6 hours as needed for severe pain Monitor blood sugars Strict intake, output, and daily weight should be monitored Please renally adjust medications Avoid nephrotoxic and nonsteroidal drugs Avoid contrast if possible Will continue to monitor renal function, anemia, electrolytes Treatment plan discussed with patient Questions were answered We have discussed with the other team physicians in detail about the care plan We will continue to monitor the patient closely Thank you for allowing us to participate in the care of this patient ATTESTATION BY PHYSICIAN I have seen and examined the patient. I reviewed the documentation, medical d ecision making, and treatment plan as noted by the mid-level provider above. I agree with the findings and plan of care. KASHIF ADKINS MD, [facility] Mar 24, 2024 14:35 KASHIF ADKINS MD Mar 24, 2024 20:13
[2024-03-24 14:50] LABS: APPEARANCE BODY FLUID CLOUDY (CLEAR); COLOR,BODY FLUID ORANGE (LT YELLOW); SPECIMENTYPE,BODY FLUID ASCITES; TOTAL VOLUME,BODY FLUID 1000 mL
--- NOTE | 2024-03-24 14:56 | NUR ---
DCP: HOME met with pt and his mother Anca Collins [phone] at bedside. Pt lives with his [address]. Pt states he is able to complete ADLS on his own. Has w/c, shower chair and grab bars at home. No provider or services. PCP is Juan Miller and uses [facility] for rx. Pt declined SNF [place] Addendum: 03/24/24 at 1501 by TWIN RODRIGUEZ SS Amended: Links added.
--- NOTE | 2024-03-24 15:26 | HMCIMG ---
CT CHEST W/O CONTRAST HISTORY: Shortness of breath COMPARISON: None TECHNIQUE: Multiple sequential axial images of the chest were obtained from the thoracic inlet through upper abdomen. Patient was not given contrast through intravenous route. FINDINGS: There is no evidence of pulmonary nodule or parenchymal disease. There are bilateral pleural effusion with left more than right with subsegmental atelectasis. There is no evidence of pneumothorax. There are normal size mediastinal and hilar lymph nodes. The heart is not enlarged. Degenerative changes of the thoracolumbar spine are present. There is no evidence of adrenal nodule. IMPRESSION: 1. Bilateral pleural effusions with left more than right. CT was performed with one or more following dose reduction techniques: automated exposure control, adjustment of the mA and kv according to patient's size, or use of a iterative reconstruction technique.
--- NOTE | 2024-03-24 15:27 | HMCIMG ---
US ABDOMINAL PARACENTESIS IR HISTORY: Ascites COMPARISON: None TECHNIQUE: Informed consent was obtained. Risks and benefits were explained to the patient. A timeout was performed. Patient was prepped and draped in a sterile fashion. Local anesthetics was given as required. Under ultrasound guidance, ascites fluid was localized. Paracentesis was performed. FINDINGS: 1 L of yellowish fluid was aspirated. Less than 2 cc blood loss is noted. Patient tolerated procedure without complication. Patient left the department in good condition. IMPRESSION: 1. Uncomplicated ultrasound guidance paracentesis.
--- NOTE | 2024-03-24 16:04 | CONS ---
[facility] CONSULTATION NOTE Date Patient Seen: Mar 24, 2024 Time of Visit: 16:04 Supervising Physician: Dr. Bob Reason for Consultation Pleural Effusion Primary Care Physician: [ ] Outpatient Specialists: [ ] Inpatient Consults: [ ] PROBLEM LIST: Symptomatic left-sided pleural effusion POA Decompensated liver cirrhosis POA SBP rule out Chest pain likely secondary to coughing Generalized abdominal pain differential SBP versus GI etiology versus ascites Acute kidney injury Volume overload Thrombocytopenia Generalized hives Possible sepsis rule out Normocytic anemia HPI: Patient is a 49-year-old male past medical history significant for decompensated liver cirrhosis with recurrent paracentesis required for ascites, BEATRICE likely on CKD, who was admitted to the hospital after experiencing shortness of breath. Patient was found to have ascites on scan, paracentesis was performed with removal of 3 L. Patient also has pleural effusion at this time however the patient's INR is 2.34. Administering 10 mg vitamin K and we will recheck INR in the morning for possible thoracentesis. Upon visiting the patient in the ER following the paracentesis patient is breathing easily, on room air, states that he feels much better after the fluid is removed from the abdominal cavity. We w ill evaluate the patient in the morning for further interventions if necessary. PAST MEDICAL HX: see above PAST SURGICAL HX: noncontributory SOCIAL HISTORY: No tobacco, ETOH, or illicit drug use Coded Allergies: Penicillins (Unverified Allergy, Severe, RASH, 12/23/23) full body rash REVIEW OF SYSTEMS: 12 point ROS reviewed with patient. Pertinent positives mentioned above. Otherwi se negative. PHYSICAL EXAM: GENERAL: alert, weak, awake oriented x 3 HEENT: EOMI, Sclera non icteric, moist mucosa NECK: Supple, no JVD, trachea midline LUNGS: Clear breath sounds bilaterally. No wheezes HEART: Regular rate and rhythm. Normal S1 and S2, without murmurs ABD: Abdomen soft, nontender. Bowel sounds present EXT: No clubbing cyanosis or edema NEURO: Alert and oriented to person, follows commands Vital Signs (last 8hr) Date Time Temp Pulse Resp B/P (MAP) Pulse Ox O2 Delivery O2 Flow Rate FiO2 03/24/24 12:00 97.7 103 18 115/65 97 Room Air LABS: Hematology Labs: Test 03/24/24 05:58 Range/Units White Blood Count 19.2 H 4.8-10.8 K/uL Red Blood Count 3.73 L 4.50-6.20 MIL/uL Hemoglobin 10.2 L 14.0-18.0 g/dL Hematocrit 31.6 L 42-54 % Mean Corpuscular Volume 84.7 79-99 fL Mean Corpuscular Hemoglobin 27.3 27.0-33.0 pg Mean Corpuscular Hemoglobin Concent 32.3 32.0-36.0 g/dL Red Cell Distribution Width 15.7 H 11.0-15.5 % Platelet Count 107 L 130-400 K/uL Mean Platelet Volume 9.9 7.5-10.5 fL Immature Granulocyte % (Auto) 0.5 0-1 % Neutrophils (%) (Auto) 85.9 H 40.0-77.0 % Lymphocytes (%) (Auto) 3.2 L 21.0-51.0 % Monocytes (%) (Auto) 5.8 3.0-13.0 % Eosinophils (%) (Auto) 4.2 0.0-8.0 % Basophils (%) (Auto) 0.4 0.0-5.0 % Neutrophils # (Auto) 16.5 H 1.8-7.7 K/uL Lymphocytes # (Auto) 0.6 L 1.0-4.8 K/uL Monocytes # (Auto) 1.1 H 0.1-1.0 K/uL Eosinophils # (Auto) 0.80 H 0.00-0.70 K/uL Basophils # (Auto) 0.07 0.00-0.20 K/uL Absolute Immature Granulocyte (auto 0.10 0-1 K/uL Nucleated Red Blood Cells 0.0 0.0-0.19 % White Cell Morphology Comment See comments Chemistry Labs: Test 03/24/24 09:35 03/24/24 06:41 03/24/24 05:58 Range/Units Total Bilirubin 7.8 H 0.2-1.0 mg/dL Direct Bilirubin 4.4 H 0.0-0.3 mg/dL Aspartate Amino Transf (AST/SGOT) 30 10-37 U/L Alanine Aminotransferase (ALT/SGPT) 12 12-78 U/L Alkaline Phosphatase 77 50-136 U/L Ammonia 15 11-32 umol/L Troponin I High Sensitivity < 4 L 4-75 ng/L Total Protein 4.9 L 6.0-8.3 g/dL Albumin 2.2 L 3.5-5.0 g/dL Troponin I < 0.05 0.00-0.05 ng/mL Sodium Level 135 L 136-145 mmol/L Potassium Level 3.7 3.5-5.1 mmol/L Chloride Level 98 L 101-111 mmol/L Carbon Dioxide Level 27 21-32 mmol/L Blood Urea Nitrogen 24 H 7-18 mg/dL Creatinine 2.3 H 0.5-1.3 mg/dL Glomerular Filtration Rate Calc 34 >90 mL/min Random Glucose 72 70-105 mg/dL Hemoglobin A1c 4.7 4.0-6.0 % Estimated Average Glucose (eAG) 88 70-126 mg/dL Total Calcium 7.4 L 8.5-10.1 mg/dL Total Creatine Kinase 51 # 21-232 U/L C-Reactive Protein, Quantitative 107.30 H 0.5-3.0 mg/L B-Type Natriuretic Peptide 14 0-100 pg/mL Procalcitonin 5.84 H 0.05-0.5 ng/mL Thyroid Stimulating Hormone (TSH) 2.19 # 0.36-3.74 uIU/mL Coagulation Labs: Test 03/24/24 05:58 Range/Units Prothrombin Time 23.7 H 9.6-11.6 SEC Prothromb Time International Ratio 2.34 H 0.85-1.15 Activated Partial Thromboplast Time 36.9 H 26.3-35.5 SEC DIAGNOSTICS / RADIOLOGY RESULTS: [ ] PLAN NEURO: Minimize central acting medications as possible. Maintain fall precautions, adequate lighting during the day PULMONARY: Supplemental 02 as needed. Maintain aspiration precautions at all times CARDIOVASCULAR: Follow hemodynamics. Vital signs per facility protocol GI & NUTRITION: Continue with nutritional support. Continue stool softeners and laxatives as needed. KIDNEYS & ELECTROLYTES: Strict monitoring of intake, output and overall fluid balance. Avoid nephrotoxic medications to the extent possible. Medications to be dosed according to renal function. Monitor electrolytes and replace as needed ENDOCRINE: Maintain blood glucose between 100-180 at all times. Hypoglycemia protocol in place INFECTIOUS DISEASE: Trend temperature, WBC and procalcitonin level Follow cultures, deescalate antibiotics as soon as possible. Panculture if new onset fever ONCOLOGY/HEMATOLOGY/COAGULATION: Monitor for s/s of bleeding Monitor hemoglobin, coagulation studies as needed SKIN: Pressure ulcer prevention per facility protocol Specialty mattress ORTHO/REHAB: Continue PT/OT Prophylaxis: Continue GI and DVT prophylaxis Code Status: Full Resuscitation Disposition: TBD Other: Total patient care time exceeds 35 minutes excluding all procedures. CHULA BARR Mar 24, 2024 16:04
[2024-03-24 16:52] LABS: CHLORIDE,URINE RANDOM 22 mmol/L (110-250); POTASSIUM,URINE RANDOM 68 mmol/L (25-125)
--- NOTE | 2024-03-24 17:06 | HMCSR ---
APPROVED REPORT EXAM: Two-dimensional and M-mode echocardiogram with Doppler and color Doppler. INDICATION ICD: Chest Pain 2D Dimensions RVDd3.8 cmLVEF(%)61.3 (>50%)LVED Vol(simp.)99.0 mL IVSd1.1 (0.7-1.1cm)FS(%)33 %LVES Vol(simp.)47.0 mL LVDd4.3 (3.8-5.6cm)LA (2D)3.6 (1.6-4.0cm)LVEF(%, simp.)53 % PWd1.2 (0.7-1.1cm)Ao Root(2D)3.4 (2.0-3.7cm)LA ESV INDEX (4CH)14.30 mL/m2 IVSs1.2 cmLVOT diam2.4 (1.8-2.4cm) LVDs2.9 (2.5-4.0cm)IVC diam1.4 cm PWs1.5 cm M-Mode Dimensions EPSS0.7 cm LA (MM)4.7 (1.6-4.0cm) Ao Root(MM)3.3 (2.0-3.7cm) Aortic Valve AoV VTI0.2 mAo Mean GR5.0 mmHgLVOT VTI0.14 m CLARA (VMAX)2.7 cm2AVA (VTI) 2.7 cm2 Mitral Valve MV E Vmax76.0 cm/sDECEL Ndad459 ms MV A Vmax85.4 cm/sP 1/2 T35 ms E/A ratio0.9MVA (PHT)6.3 cm2 TDI E/E' Medial9.7E/E' Lateral5.7 Medial E' Peak V7.80 cm/sLateral E' Peak V13.30 cm/s Pulmonary Valve PV VTI0.21 mPV Mean GR4 mmHg Left Ventricle The left ventricle is normal size. There is normal LV segmental wall motion. There is normal left ibeth tricular wall thickness. LVEF is 50-55%. The left ventricular diastolic function is normal. Right Ventricle The right ventricle is normal size. The right ventricular systolic function is normal. Atria The left atrium size is normal. The right atrium size is normal. Aortic Valve The aortic valve is normal in structure. No aortic regurgitation is present. There is no aortic valvu lar stenosis. Mitral Valve The mitral valve is normal in structure. There is no mitral valve regurgitation noted. There is no mi tral valve stenosis. Tricuspid Valve The tricuspid valve is normal in structure. There is no tricuspid valve regurgitation noted. Pulmonic Valve The pulmonary valve is normal in structure. There is no pulmonic valvular regurgitation. Great Vessels The aortic root is normal in size. The IVC is normal in size and collapses >50% with inspiration. Pericardium There is no pericardial effusion. Other Information Quality : GoodRhythm : NSR Conclusion LVEF is 50-55%. The left ventricular diastolic function is normal. No significant valvular abnormalities.
[2024-03-24 17:09] LABS: BF EOSINOPHIL 1 %; BF LYMPHOCYTE 3 %; BF MACROPHAGE 10; BF MONOCYTE 4 %; BF TOTAL CELLS COUNTED 100
--- NOTE | 2024-03-24 18:33 | NUR ---
report given to ILAN Rhodes.
[2024-03-24] MEDS ORDERED: ALBUMIN (HUMAN) 25% 50 ML IV SCH (21:00)
[2024-03-24] MEDS: FAMOTIDINE 20MG VIAL IV SCH (22:46)
[2024-03-24] MEDS: MEROPENEM 1 GM in 0.9%NACL 100ML 100 ML IVPB SCH (22:46)
[2024-03-25] VITALS (7 sets, daily range): BP systolic 112–117; BP diastolic 65–74; PULSE 81–96; RESP 16–18; TEMP 97.8–98.6; O2SAT 91
[2024-03-25] MEDS: ALBUMIN (HUMAN) 25% 50 ML IV SCH (01:59)
[2024-03-25 04:32] LABS: HEMATOCRIT 25.5 % (42-54); MEAN CORPUSCULAR HEMOGLOBIN 26.9 pg (27.0-33.0); MEAN CORPUSCULAR HGB CONC 32.2 g/dL (32.0-36.0); MEAN CORPUSCULAR VOLUME 83.6 fL (79-99); PLATELET COUNT (AUTO) 103 K/uL (130-400); RED BLOOD CELL COUNT(AUTO) 3.05 MIL/uL (4.50-6.20); RED CELL DISTRIBUTION WIDTH 15.9 % (11.0-15.5)
[2024-03-25 04:43] LABS: INR 1.91 (0.85-1.15); PROTHROMBIN TIME 19.7 SEC (9.6-11.6)
[2024-03-25 04:44] LABS: % IRON SATURATION 8.5 % (30-44)
[2024-03-25 05:06] LABS: ALBUMIN 2.1 g/dL (3.5-5.0); CREATININE 2.5 mg/dL (0.5-1.3); MAGNESIUM 1.9 mg/dL (1.80-2.40); POTASSIUM 3.8 mmol/L (3.5-5.1); THYROID STIMULATING HORMONE 0.88 uIU/mL (0.36-3.74); TOTAL PROTEIN, SERUM 5.1 g/dL (6.0-8.3); URIC ACID 6.2 mg/dL (2.6-7.2)
[2024-03-25 05:13] LABS: BAND NEUTROPHILS % (MANUAL) 1 % (0-2); LYMPHOCYTES % (MANUAL) 6 % (22-44); MONOCYTES % (MANUAL) 2 % (2-9); SEGMENTED NEUTROPHILS % 91 % (40-70); TOTAL CELLS COUNTED 100
[2024-03-25 05:17] LABS: MAN.DIFF COMMENT-IMPRESSION MANUAL DIFFERENTIAL; PLATELET MORPHOLOGY COMMENT SLIGHTLY DECREASED; WBC MORPHOLOGY NORMAL
--- NOTE | 2024-03-25 07:03 | CONS ---
INFECTIOUS DISEASE CONSULTATION DATE OF SERVICE: 03/24/2024 REQUESTING PHYSICIAN: Dr. Walter Del Rosario. REASON FOR CONSULTATION: Possible sepsis. HISTORY OF PRESENT ILLNESS: A 49-year-old male with history of liver cirrhosis, ascites and obesity, presented to the hospital with shortness of breath and cough. The patient is also complaining of abdominal pain. The patient in the ER was found with elevated WBC. Procalcitonin was elevated. The patient will be admitted as a case of sepsis. The patient underwent paracentesis in the Emergency Room. Ascitic fluid wbc is greater than 6000. The patient is specifically started on meropenem. The patient also started on albumin. No cough, no shortness of breath, no palpitation, no orthopnea. PAST MEDICAL HISTORY: * Liver cirrhosis. * Ascites. * Obesity. PAST SURGICAL HISTORY: * Paracentesis. * Thoracentesis. ALLERGIES: PENICILLIN, BUT TOLERATING CARBAPENEM. CURRENT MEDICATIONS: Reviewed. SOCIAL HISTORY: No alcohol or tobacco use. FAMILY HISTORY: Noncontributory. REVIEW OF SYSTEMS: Greater than 10 systems were reviewed, negative except as documented above. PHYSICAL EXAMINATION: GENERAL: A young male, awake. VITAL SIGNS: Temperature 97.9, pulse 100, respiratory rate 20, blood pressure 120/75. EYES: No icterus. Pupils equal and reactive. HENT: No oral thrush seen. Moist oral mucosa. NECK: Supple, no JVD or thyromegaly. LUNGS: Decreased air entry at the bases. Crackles heard. CARDIOVASCULAR: S1, S2 regular, tachycardic. No murmur heard. ABDOMEN: Distended with ascites, mildly tender. CENTRAL NERVOUS SYSTEM: Awake, alert, oriented x 3. No focal deficits. SKIN: No rashes, no itchiness. LYMPHATIC: No peripheral lymphadenopathy. BACK: No deformity, no pressure ulcer. HEMATOLOGIC: No bleeding or petechial lesion seen. MUSCULOSKELETAL: No joint swelling, erythema or tenderness. VASCULAR: No ischemia or gangrene of extremities. LABORATORY DATA: Procalcitonin 5.84. Sodium 135, potassium 5.7, BUN 24, creatinine 2.2. WBC 19.2, hemoglobin 10.2, platelet 107. Urinalysis negative. RADIOLOGY: Chest x-ray shows bilateral infiltrate. CT of the abdomen showed liver cirrhosis and bilateral pleural effusion. ASSESSMENT: A 49-year-old male presenting with shortness of breath and cough. CURRENT PROBLEMS: Include: * Sepsis. * Spontaneous bacterial peritonitis. * Ascites, status post paracentesis. * Bilateral pleural effusion. * Renal failure. * Morbid obesity. * Anemia. PLAN: * Continue the patient on albumin. * Continue meropenem. * Follow up cultures. * Continue pain management. * Continue nutritional support. * Monitor electrolytes. * Avoid nephrotoxic medication. * The patient will be followed up closely. Thank you for allowing me to participate in the care of this patient. TID: [id number] RECEIPT: [id number]
--- NOTE | 2024-03-25 08:38 | PN ---
[facility] PROGRESS NOTE Date of Service: Mar 25, 2024 Time of Service: 08:38 SUBJECTIVE: Patient has been seen and examined during my rounding earlier this morning, no acute events overnight, currently alert oriented x3, hemodynamically stable, BP 112/71, afebrile, saturating normal on room air, he denies dizziness, no headache, no chest pain, no shortness a breath, nausea, no vomiting, no pain. He looks edematous. at bedside during my visit. REVIEW OF SYSTEMS CONSTITUTIONAL: Denies fevers, chills, or night sweats. No unintentional weight loss reported. Positive for decreased appetite NEUROLOGICAL: Denies headache, amaurosis fugax, motor weakness, sensory deficit, vertigo/spinning sensation, gait abnormalities, or tremors. ENT: No hearing loss, otalgia, otorrhea, rhinitis, rhinorrhea, hoarseness, or sore throat. CARDIOVASCULAR: Denies any exertional angina, dyspnea on exertion, orthopnea, paroxysmal nocturnal dyspnea, palpitations, life-threatening arrhythmias, claudication. PULMONARY: Positive for shortness of breath, cough. Denied any sputum production GASTROINTESTINAL: Denies any type of dysphagia to either liquids or solids. Denies nausea, vomiting, pyrosis, early satiety, abdominal pain, diarrhea, constipation, or changes in stool consistency or caliber. Denies coffee-ground emesis, hematemesis, hematochezia, or melanotic stools. GENITOURINARY: Denies frequency, urgency, nocturia, hematuria or incontinence (Storage/Irritative symptoms.) Low urinary stream, straining to void, urinary intermittency or hesitancy, splitting of the voiding stream, terminal dribbling. ENDOCRINOLOGIC: Denies polyuria, polydipsia, polyphagia or heat/cold intolerances. HEMATOLOGIC: Denies thrombophilia/previous clots, or coagulopathy/bleeding disorders. ONCOLOGIC: Denies personal history of malignancy. DERMATOLOGIC: Denies rashes or pruritus. PSYCHIATRIC: Denies any suicidal or homicidal ideation. Denies hallucinations. PHYSICAL EXAM GENERAL APPEARANCE: The patient is awake, alert, and oriented, in no acute cardiopulmonary distress. NEUROLOGICAL: Cranial nerves II-XII grossly intact. Motor is 5/5 in bilateral upper and lower extremities proximal to distal. No sensory deficits. HEENT: Face is symmetric. Pupils are equal and reactive. Extraocular movements are intact. NECK: Supple. No JVD. No thyromegaly. No submental, submandibular, pre- /postauricular, occipital or supraclavicular lymphadenopathy. CHEST: Normal chest expansion. No Telemetry. LUNGS: He has decreased breath sounds on the left side CARDIOVASCULAR: Regular. S1 and S2 normal. No appreciable rubs, murmurs or gallops. ABDOMEN: Soft, generalized mild tenderness, and nondistended. There is no rebound, voluntary guarding, or rigidity. : Deferred. No Rangel. EXTREMITIES: 3+ pitting edema in the lower extremity bilaterally not cyanotic. No clubbing. Good capillary refill. SKIN: No skin breakdown. Vital Signs (last 8hr) Date Time Temp Pulse Resp B/P (MAP) Pulse Ox O2 Delivery O2 Flow Rate FiO2 03/25/24 07:55 98.1 96 18 117/68 94 Room Air 03/25/24 04:22 98.2 94 18 116/74 94 Room Air LABS: Laboratory: Test 03/25/24 04:02 03/24/24 16:29 03/24/24 12:00 03/24/24 10:34 Range/Units White Blood Count 19.0 H 4.8-10.8 K/uL Red Blood Count 3.05 L 4.50-6.20 MIL/uL Hemoglobin 8.2 L 14.0-18.0 g/dL Hematocrit 25.5 L 42-54 % Mean Corpuscular Volume 83.6 79-99 fL Mean Corpuscular Hemoglobin 26.9 L 27.0-33.0 pg Mean Corpuscular Hemoglobin Concent 32.2 32.0-36.0 g/dL Red Cell Distribution Width 15.9 H 11.0-15.5 % Platelet Count 103 L 130-400 K/uL Mean Platelet Volume 10.1 7.5-10.5 fL Segmented Neutrophils % 91 H 40-70 % Band Neutrophils % 1 0-2 % Lymphocytes % (Manual) 6 L 22-44 % Monocytes % (Manual) 2 2-9 % Nucleated Red Blood Cells 0.0 0.0-0.19 % Differential Comment MANUAL DIFFERENTIAL White Cell Morphology Comment NORMAL Platelet Morphology Comment SLIGHTLY DECREASED Red Blood Cell Morphology See comments Prothrombin Time 19.7 H 9.6-11.6 SEC Prothromb Time International Ratio 1.91 H 0.85-1.15 Sodium Level 132 L 136-145 mmol/L Potassium Level 3.8 3.5-5.1 mmol/L Chloride Level 97 L 101-111 mmol/L Carbon Dioxide Level 27 21-32 mmol/L Blood Urea Nitrogen 44 #H 7-18 mg/dL Creatinine 2.5 H 0.5-1.3 mg/dL Glomerular Filtration Rate Calc 31 >90 mL/min Random Glucose 119 #H 70-105 mg/dL Uric Acid 6.2 2.6-7.2 mg/dL Total Calcium 7.4 L 8.5-10.1 mg/dL Phosphorus Level 5.0 H 2.5-4.9 mg/dL Magnesium Level 1.90 1.80-2.40 mg/dL Iron Level 25 #L 65-175 mcg/dL Total Iron Binding Capacity 291 250-450 mcg/dL Percent Iron Saturation 8.5 L 30-44 % Ferritin 225 30-400 ng/mL Total Bilirubin 5.0 #H 0.2-1.0 mg/dL Aspartate Amino Transf (AST/SGOT) 22 10-37 U/L Alanine Aminotransferase (ALT/SGPT) 11 L 12-78 U/L Alkaline Phosphatase 67 50-136 U/L Total Protein 5.1 L 6.0-8.3 g/dL Albumin 2.1 L 3.5-5.0 g/dL Thyroid Stimulating Hormone (TSH) 0.88 # 0.36-3.74 uIU/mL Troponin I High Sensitivity < 4 L 4-75 ng/L Body Fluid Source ASCITES Body Fluid Volume 1000 mL Body Fluid Color ORANGE H LT YELLOW Body Fluid Supernatant Appearance CLOUDY H CLEAR Body Fluid WBC 6376 /cu. mm. Body Fluid RBC 6683 /cu. mm. Body Fluid Neutrophils 82.0 % Body Fluid Lymphocytes 3 % Body Fluid Monocytes % 4 % Body Fluid Eosinophils % 1 % Body Fluid Macrophages (%) 10 Urine Color DARK-YELLOW YELLOW Urine Appearance TURBID CLEAR Urine pH 5.0 5.0-8.0 Urine Specific [place] 1.020 1.001-1.031 Urine Protein 30 H NEGATIVE mg/dL Urine Glucose (UA) NEGATIVE NEGATIVE mg/dL Urine Ketones NEGATIVE NEGATIVE mg/dL Urine Occult Blood +- (TRACE) H NEGATIVE Urine Nitrate NEGATIVE NEGATIVE Urine Bilirubin 2 H NEGATIVE mg/dL Urine Urobilinogen 4.0 H 0.2-1.0 mg/dL Urine Leukocyte Esterase NEGATIVE NEGATIVE Antoni/uL Urine RBC 0-1 0-1 /HPF Urine WBC 0-1 0-1 /HPF Urine Squamous Epithelial Cells 0-2 0-2 /HPF Urine Bacteria Rare None Seen /HPF Urine Random Creatinine 336.27 H 30-135 mg/dL Urine Random Sodium < 13 L 40-220 mmol/l Urine Random Potassium 68 25-125 mmol/L Urine Random Chloride 22 L 110-250 mmol/L Test 03/24/24 09:35 03/24/24 06:41 03/24/24 05:58 Range/Units Direct Bilirubin 4.4 H 0.0-0.3 mg/dL Ammonia 15 11-32 umol/L Troponin I < 0.05 0.00-0.05 ng/mL Immature Granulocyte % (Auto) 0.5 0-1 % Neutrophils (%) (Auto) 85.9 H 40.0-77.0 % Lymphocytes (%) (Auto) 3.2 L 21.0-51.0 % Monocytes (%) (Auto) 5.8 3.0-13.0 % Eosinophils (%) (Auto) 4.2 0.0-8.0 % Basophils (%) (Auto) 0.4 0.0-5.0 % Neutrophils # (Auto) 16.5 H 1.8-7.7 K/uL Lymphocytes # (Auto) 0.6 L 1.0-4.8 K/uL Monocytes # (Auto) 1.1 H 0.1-1.0 K/uL Eosinophils # (Auto) 0.80 H 0.00-0.70 K/uL Basophils # (Auto) 0.07 0.00-0.20 K/uL Absolute Immature Granulocyte (auto 0.10 0-1 K/uL Activated Partial Thromboplast Time 36.9 H 26.3-35.5 SEC Hemoglobin A1c 4.7 4.0-6.0 % Estimated Average Glucose (eAG) 88 70-126 mg/dL Total Creatine Kinase 51 # 21-232 U/L C-Reactive Protein, Quantitative 107.30 H 0.5-3.0 mg/L B-Type Natriuretic Peptide 14 0-100 pg/mL Procalcitonin 5.84 H 0.05-0.5 ng/mL Current Medications Medications (Trade) Dose Ordered Sig/Dorothy Route PRN Reason Start Time Stop Time Status Last Admin Dose Admin Albumin Human 50 ml @ 25 mls/hr Q8H IV 03/25/24 01:00 03/25/24 18:59 03/25/24 01:59 25 MLS/HR Albumin Human 50 ml @ 25 mls/hr Q8H5 IV 03/24/24 21:00 03/24/24 21:04 DC Famotidine (Pepcid 20mg Vial) 20 mg Q48H IV 03/24/24 21:00 04/23/24 20:59 03/24/24 22:46 20 MG Magnesium Sulfate 50 ml @ 0 mls/hr PROTOCOL PRN IV hypomagnesemia 03/24/24 10:00 04/23/24 09:59 Meropenem 1 gm/ Sodium Chloride 100 ml @ 33.333 mls/ hr Q12H IV 03/24/24 07:00 03/24/24 09:37 DC 03/24/24 09:29 33.333 MLS/HR Meropenem 1 gm/ Sodium Chloride 100 ml @ 33.333 mls/ hr Q12H IVPB 03/24/24 21:30 04/03/24 21:29 03/24/24 22:46 33.333 MLS/HR Potassium Chloride 100 ml @ 100 mls/hr AD PRN IV POTASSIUM PROTOCOL 03/24/24 10:00 04/23/24 09:59 Potassium Chloride (K-Dur/Klor-Con 20meq) 20 meq AD PRN PO POTASSIUM PROTOCOL 03/24/24 10:00 04/23/24 09:59 Potassium Chloride (KCl 10% Elixir 20meq/15ml) 20 meq AD PRN PO POTASSIUM PROTOCOL 03/24/24 10:00 04/23/24 09:59 Thiamine HCl (Vitamin B-1) 100 mg DAILY IVP 03/25/24 09:00 04/24/24 08:59 Vitamin B Complex/ Vit C/Folic Acid (Nephrovite Tablet) 1 cap DAILY PO 03/25/24 09:00 04/24/24 08:59 DIAGNOSTICS / RADIOLOGY: [ ] CT CHEST W/O CONTRAST HISTORY: Shortness of breath COMPARISON: None TECHNIQUE: Multiple sequential axial images of the chest were obtained from the thoracic inlet through upper abdomen. Patient was not given contrast through intravenous route. FINDINGS: There is no evidence of pulmonary nodule or parenchymal disease. There are bilateral pleural effusion with left more than right with subsegmental atelectasis. There is no evidence of pneumothorax. There are normal size mediastinal and hilar lymph nodes. The heart is not enlarged. Degenerative changes of the thoracolumbar spine are present. There is no evidence of adrenal nodule. IMPRESSION: 1. Bilateral pleural effusions with left more than right. ASSESSMENT: Symptomatic left-sided pleural effusion POA Decompensated liver cirrhosis POA SBP rule out Chest pain likely secondary to coughing Generalized abdominal pain differential SBP versus GI etiology versus ascites Acute kidney injury Volume overload Thrombocytopenia Generalized hives Possible sepsis rule out Normocytic anemia PLAN: - patient remains admitted to the PCU -in reference to symptomatic pleural effusion. CT chest reviewed, bilateral pleural effusion with left more than right, pulmonary consultation requested, follow input and recommendation. - In reference to leukocytosis. Patient will continue on meropenem. CT abdomen and pelvis showing cirrhotic liver with a large spleen and abdominal varices and small ascites. Ultrasound-guided paracentesis by IR done, 1 L of yellow fluid aspirated. Tolerated procedure well. -continue to monitor renal function in a.m., follow Nephrology input and recommendation -TSH of 0.88, and hemoglobin A1c 4.7 -in reference to chest pain this was likely in setting of coughing. Trend troponins q.6 hours. Echocardiogram with a ejection fraction 50-55%. - in reference to hives/urticaria. Patient's rash has improved. We will clos jaziel monitor. -further orders per hospitalization course. -obtain home medications which will be reconciled once available Disposition: Remains admitted to the PCU, patient with decompensated liver cirrhosis, bilateral pleural effusion, follow Pulmonary recommendations, continue antibiotics, continue diuretics. Total PCU time spent greater than 30 minutes. GEMA ESTRADA MD Mar 25, 2024 08:38
[2024-03-25] MEDS: Vitamin B Complex/Vit C/Folic Acid PO SCH (08:50)
[2024-03-25] MEDS: THIAMINE HCL 100 MG/ML 2ML VIAL IVP SCH (08:51)
--- NOTE | 2024-03-25 12:18 | PN ---
INFECTIOUS DISEASE PROGRESS NOTE Date of Service: Mar 25, 2024 SUBJECTIVE: Disappointed 9-year-old patient who was seen and examined at bedside in room 227. Patient is awake, alert and oriented x3. Patient is status post paracentesis with 1 L removed on 03/24/2024. A CT of the chest showed bilateral pleural effusion with left more than the right. Patient will need a left thoracentesis. No shortness of breaths observe. Patient continues on meropenem. REVIEW OF SYSTEMS CONSTITUTIONAL: Denies fever, chills, or fatigue. HEAD/FACE: No signs of trauma. EENT: Denies eye pain, blurred vision, double vision, or light sensitivity. RESPIRATORY: Denies shortness of breath, cough, wheezing CARDIOVASCULAR: Denies chest pain, palpitation, syncope GASTROINTESTINAL/ABDOMINAL: Denies abdominal pain, constipation, diarrhea, nausea or vomiting GENITOURINARY: Denies dysuria or hematuria. MUSCULOSKELETAL: Denies joint pain, tenderness, or trauma. INTEGUMENTARY: Denies rash or itchiness NEUROLOGICAL/PSYCH: Denies anxiety, depression, heat or cold intolerance. PHYSICAL EXAM EYES: Anicteric. Pupils equal and reactive. HENT: No oral thrush seen, moist Oral mucosa NECK: Supple, no JVD or thyromegaly. LUNGS: Good air entry. No rales, no rhonchi. CARDIOVASCULAR: S1, S2 regular. No murmur heard. ABDOMEN: Soft, non tender, bowel sounds present, no organomegaly CENTRAL NERVOUS SYSTEM: Awake, alert, oriented x 3. No focal deficits. SKIN: No rashes, no swelling. LYMPHATICS: No peripheral lymphadenopathy MUSCULOSKELETAL: No joint swelling, erythema or tenderness. EXTREMITIES: No cyanosis or clubbing BACK: No deformity, no pressure ulcer. GENITOURINARY: No dysuria or hematuria Vital Sign (Last 12 Hours) 03/25/24 03/25/24 03/25/24 03/25/24 04:22 07:55 08:30 11:37 Temp 98.2 98.1 98.2 Pulse 94 96 91 Resp 18 18 16 B/P (MAP) 116/74 117/68 112/71 Pulse Ox 94 94 91 96 O2 Delivery Room Air Room Air Room Air* Room Air O2 Flow Rate 0 FiO2 21 LABS: Laboratory: Test 03/25/24 04:02 03/24/24 16:29 03/24/24 12:00 03/24/24 10:34 Range/Units White Blood Count 19.0 H 4.8-10.8 K/uL Red Blood Count 3.05 L 4.50-6.20 MIL/uL Hemoglobin 8.2 L 14.0-18.0 g/dL Hematocrit 25.5 L 42-54 % Mean Corpuscular Volume 83.6 79-99 fL Mean Corpuscular Hemoglobin 26.9 L 27.0-33.0 pg Mean Corpuscular Hemoglobin Concent 32.2 32.0-36.0 g/dL Red Cell Distribution Width 15.9 H 11.0-15.5 % Platelet Count 103 L 130-400 K/uL Mean Platelet Volume 10.1 7.5-10.5 fL Segmented Neutrophils % 91 H 40-70 % Band Neutrophils % 1 0-2 % Lymphocytes % (Manual) 6 L 22-44 % Monocytes % (Manual) 2 2-9 % Nucleated Red Blood Cells 0.0 0.0-0.19 % Differential Comment MANUAL DIFFERENTIAL White Cell Morphology Comment NORMAL Platelet Morphology Comment SLIGHTLY DECREASED Red Blood Cell Morphology See comments Prothrombin Time 19.7 H 9.6-11.6 SEC Prothromb Time International Ratio 1.91 H 0.85-1.15 Sodium Level 132 L 136-145 mmol/L Potassium Level 3.8 3.5-5.1 mmol/L Chloride Level 97 L 101-111 mmol/L Carbon Dioxide Level 27 21-32 mmol/L Blood Urea Nitrogen 44 #H 7-18 mg/dL Creatinine 2.5 H 0.5-1.3 mg/dL Glomerular Filtration Rate Calc 31 >90 mL/min Random Glucose 119 #H 70-105 mg/dL Uric Acid 6.2 2.6-7.2 mg/dL Total Calcium 7.4 L 8.5-10.1 mg/dL Phosphorus Level 5.0 H 2.5-4.9 mg/dL Magnesium Level 1.90 1.80-2.40 mg/dL Iron Level 25 #L 65-175 mcg/dL Total Iron Binding Capacity 291 250-450 mcg/dL Percent Iron Saturation 8.5 L 30-44 % Ferritin 225 30-400 ng/mL Total Bilirubin 5.0 #H 0.2-1.0 mg/dL Aspartate Amino Transf (AST/SGOT) 22 10-37 U/L Alanine Aminotransferase (ALT/SGPT) 11 L 12-78 U/L Alkaline Phosphatase 67 50-136 U/L Total Protein 5.1 L 6.0-8.3 g/dL Albumin 2.1 L 3.5-5.0 g/dL Thyroid Stimulating Hormone (TSH) 0.88 # 0.36-3.74 uIU/mL Troponin I High Sensitivity < 4 L 4-75 ng/L Body Fluid Source ASCITES Body Fluid Volume 1000 mL Body Fluid Color ORANGE H LT YELLOW Body Fluid Supernatant Appearance CLOUDY H CLEAR Body Fluid WBC 6376 /cu. mm. Body Fluid RBC 6683 /cu. mm. Body Fluid Neutrophils 82.0 % Body Fluid Lymphocytes 3 % Body Fluid Monocytes % 4 % Body Fluid Eosinophils % 1 % Body Fluid Macrophages (%) 10 Urine Color DARK-YELLOW YELLOW Urine Appearance TURBID CLEAR Urine pH 5.0 5.0-8.0 Urine Specific [place] 1.020 1.001-1.031 Urine Protein 30 H NEGATIVE mg/dL Urine Glucose (UA) NEGATIVE NEGATIVE mg/dL Urine Ketones NEGATIVE NEGATIVE mg/dL Urine Occult Blood +- (TRACE) H NEGATIVE Urine Nitrate NEGATIVE NEGATIVE Urine Bilirubin 2 H NEGATIVE mg/dL Urine Urobilinogen 4.0 H 0.2-1.0 mg/dL Urine Leukocyte Esterase NEGATIVE NEGATIVE Antoni/uL Urine RBC 0-1 0-1 /HPF Urine WBC 0-1 0-1 /HPF Urine Squamous Epithelial Cells 0-2 0-2 /HPF Urine Bacteria Rare None Seen /HPF Urine Random Creatinine 336.27 H 30-135 mg/dL Urine Random Sodium < 13 L 40-220 mmol/l Urine Random Potassium 68 25-125 mmol/L Urine Random Chloride 22 L 110-250 mmol/L Test 03/24/24 09:35 03/24/24 06:41 03/24/24 05:58 Range/Units Direct Bilirubin 4.4 H 0.0-0.3 mg/dL Ammonia 15 11-32 umol/L Troponin I < 0.05 0.00-0.05 ng/mL Immature Granulocyte % (Auto) 0.5 0-1 % Neutrophils (%) (Auto) 85.9 H 40.0-77.0 % Lymphocytes (%) (Auto) 3.2 L 21.0-51.0 % Monocytes (%) (Auto) 5.8 3.0-13.0 % Eosinophils (%) (Auto) 4.2 0.0-8.0 % Basophils (%) (Auto) 0.4 0.0-5.0 % Neutrophils # (Auto) 16.5 H 1.8-7.7 K/uL Lymphocytes # (Auto) 0.6 L 1.0-4.8 K/uL Monocytes # (Auto) 1.1 H 0.1-1.0 K/uL Eosinophils # (Auto) 0.80 H 0.00-0.70 K/uL Basophils # (Auto) 0.07 0.00-0.20 K/uL Absolute Immature Granulocyte (auto 0.10 0-1 K/uL Activated Partial Thromboplast Time 36.9 H 26.3-35.5 SEC Hemoglobin A1c 4.7 4.0-6.0 % Estimated Average Glucose (eAG) 88 70-126 mg/dL Total Creatine Kinase 51 # 21-232 U/L C-Reactive Protein, Quantitative 107.30 H 0.5-3.0 mg/L B-Type Natriuretic Peptide 14 0-100 pg/mL Procalcitonin 5.84 H 0.05-0.5 ng/mL ASSESSMENT: Spontaneous bacterial peritonitis. Sepsis. Leukocytosis. Ascites s/p paracentesis with 1 L removed on 03/24/2024.. Bilateral pleural effusions. Renal failure. PLAN: Patient will need a left thoracentesis. Continues with meropenem. Continue GI prophylaxis. Continue diuretics. Continue current management. We will monitor electrolytes. This case was reviewed and discussed with my supervising physician and the above assessment and plan was formulated and agreed upon. ATTESTATION BY PHYSICIAN I have seen and examined the patient. I reviewed the documentation, medical decision making, and treatment plan as noted by the mid-level provider above. I agree with the findings and plan of care. RAMYA COY MD, [facility]TA [facility] Mar 25, 2024 12:18
[2024-03-25 12:26] LABS: INR 1.84 (0.85-1.15)
--- NOTE | 2024-03-25 14:30 | PRN ---
KERMIT ALEXANDRA 03/25/24 1430: Procedure Note Date: 03/25/24 Time: 1400 Procedure: Ultrasound-guided Left thoracentesis Indication: Large Left pleural effusion A time-out was completed verifying correct patient, procedure, site, positioning, and special equipment if applicable. The patients left side was prepped and draped in a sterile manner after the appropriate infiltration level was confirmed by ultrasound. 1% lidocaine was used anesthetize the surrounding skin. A finder needle was then used to locate fluid and clear yellow fluid was obtained. A 10-blade scalpel used to make the incision. The thoracentesis catheter was then threaded without difficulty. The patient had [_2000_mL] of turbid yellow fluid removed. A post-procedure chest x-ray was ordered and the fluid will be sent for several studies. Estimated Blood Loss: [_2 ml_] The patient tolerated the procedure well and there were no complications. Procedure performed under the direct supervision of Teressa Bob MD Time spent in procedure is excluding care evaluation. TERESSA STEPHENS MD 03/26/24 1145: Procedure Note ATTESTATION BY PHYSICIAN I attest that I reviewed and discussed the case with the Physician Insurance Claim Representative as well as agree with the Physician Insurance Claim Representative's findings, plans of care, and documentation above. Teressa Stephens MD, NELLY J ARNP Mar 25, 2024 14:30 TERESSA STEPHENS MD Mar 26, 2024 11:45
--- NOTE | 2024-03-25 14:40 | PN ---
NEPHROLOGY PROGRESS NOTE Date/Time Patient Seen: Mar 25, 2024 SUBJECTIVE: This is a 49-year-old male with a past medical history of alcoholic liver cirrhosis with the current paracentesis. He presented to the emergency with complaints of shortness of breath, cough and phlegm. S/p paracentesis with 1 L removed on 03/24 He did receive Albumin Chest x-ray showed left-sided pleural effusion. Pending thoracentesis He was noted with elevated BUN/creatinine. We are consulted for renal failure. Renal function remains elevated Electrolytes are stable. Hemoglobin is stable at 8.2, iron panel was noted He was seen in the medical floor, in no acute distress No family at the bedside Prognosis remains guarded REVIEW OF SYSTEMS: GENERAL: Positive for generalized weakness NEUROLOGIC: Negative for any blurry vision, blind spots, double vision, facial asymmetry, dysphagia, dysarthria, hemiparesis, hemisensory deficits, vertigo, ataxia. HEENT: Negative for any head trauma, neck trauma, neck stiffness, photophobia, phonophobia, sinusitis, rhinitis. CARDIAC: Negative for any chest pain, dyspnea on exertion, paroxysmal nocturnal dyspnea, peripheral edema. PULMONARY: Negative for any shortness of breath, wheezing, COPD, or TB exposure. GASTROINTESTINAL: Negative for any abdominal pain, nausea, vomiting, bright red blood per rectum, melena. GENITOURINARY: Negative for any dysuria, hematuria, incontinence. INTEGUMENTARY: Negative for any rashes, cuts, insect bites. RHEUMATOLOGIC: Negative for any joint pains, photosensitive rashes, history of vasculitis or kidney problems. HEMATOLOGIC: Negative for any abnormal bruising, frequent infections or bleeding. PHYSICAL EXAM: GENERAL: Alert and oriented x 3. No acute distress. Well-nourished. EYES: EOMI. Anicteric. HENT: Moist mucous membranes. No scleral icterus. No cervical lymphadenopathy. LUNGS: Clear to auscultation bilaterally. No accessory muscle use. CARDIOVASCULAR: Regular rate and rhythm. No murmur. No JVD. ABDOMEN: Soft, non-tender and non-distended. No palpable masses. EXTREMITIES: No edema. Non-tender. SKIN: No rashes or lesions. Warm. NEUROLOGIC: No focal neurological deficits. CN II-XII grossly intact, but not individually tested. PSYCHIATRIC: Cooperative. Appropriate mood and affect. LABORATORY: [ ] Hematology Labs: Test 03/25/24 04:02 03/24/24 05:58 Range/Units White Blood Count 19.0 H 4.8-10.8 K/uL Red Blood Count 3.05 L 4.50-6.20 MIL/uL Hemoglobin 8.2 L 14.0-18.0 g/dL Hematocrit 25.5 L 42-54 % Mean Corpuscular Volume 83.6 79-99 fL Mean Corpuscular Hemoglobin 26.9 L 27.0-33.0 pg Mean Corpuscular Hemoglobin Concent 32.2 32.0-36.0 g/dL Red Cell Distribution Width 15.9 H 11.0-15.5 % Platelet Count 103 L 130-400 K/uL Mean Platelet Volume 10.1 7.5-10.5 fL Segmented Neutrophils % 91 H 40-70 % Band Neutrophils % 1 0-2 % Lymphocytes % (Manual) 6 L 22-44 % Monocytes % (Manual) 2 2-9 % Nucleated Red Blood Cells 0.0 0.0-0.19 % Differential Comment MANUAL DIFFERENTIAL White Cell Morphology Comment NORMAL Platelet Morphology Comment SLIGHTLY DECREASED Red Blood Cell Morphology See comments Immature Granulocyte % (Auto) 0.5 0-1 % Neutrophils (%) (Auto) 85.9 H 40.0-77.0 % Lymphocytes (%) (Auto) 3.2 L 21.0-51.0 % Monocytes (%) (Auto) 5.8 3.0-13.0 % Eosinophils (%) (Auto) 4.2 0.0-8.0 % Basophils (%) (Auto) 0.4 0.0-5.0 % Neutrophils # (Auto) 16.5 H 1.8-7.7 K/uL Lymphocytes # (Auto) 0.6 L 1.0-4.8 K/uL Monocytes # (Auto) 1.1 H 0.1-1.0 K/uL Eosinophils # (Auto) 0.80 H 0.00-0.70 K/uL Basophils # (Auto) 0.07 0.00-0.20 K/uL Absolute Immature Granulocyte (auto 0.10 0-1 K/uL Chemistry Labs: Test 03/25/24 04:02 03/24/24 16:29 03/24/24 09:35 03/24/24 06:41 Range/Units Sodium Level 132 L 136-145 mmol/L Potassium Level 3.8 3.5-5.1 mmol/L Chloride Level 97 L 101-111 mmol/L Carbon Dioxide Level 27 21-32 mmol/L Blood Urea Nitrogen 44 #H 7-18 mg/dL Creatinine 2.5 H 0.5-1.3 mg/dL Glomerular Filtration Rate Calc 31 >90 mL/min Random Glucose 119 #H 70-105 mg/dL Uric Acid 6.2 2.6-7.2 mg/dL Total Calcium 7.4 L 8.5-10.1 mg/dL Phosphorus Level 5.0 H 2.5-4.9 mg/dL Magnesium Level 1.90 1.80-2.40 mg/dL Iron Level 25 #L 65-175 mcg/dL Total Iron Binding Capacity 291 250-450 mcg/dL Percent Iron Saturation 8.5 L 30-44 % Ferritin 225 30-400 ng/mL Total Bilirubin 5.0 #H 0.2-1.0 mg/dL Aspartate Amino Transf (AST/SGOT) 22 10-37 U/L Alanine Aminotransferase (ALT/SGPT) 11 L 12-78 U/L Alkaline Phosphatase 67 50-136 U/L Total Protein 5.1 L 6.0-8.3 g/dL Albumin 2.1 L 3.5-5.0 g/dL Thyroid Stimulating Hormone (TSH) 0.88 # 0.36-3.74 uIU/mL Troponin I High Sensitivity < 4 L 4-75 ng/L Direct Bilirubin 4.4 H 0.0-0.3 mg/dL Ammonia 15 11-32 umol/L Troponin I < 0.05 0.00-0.05 ng/mL Test 03/24/24 05:58 Range/Units Hemoglobin A1c 4.7 4.0-6.0 % Estimated Average Glucose (eAG) 88 70-126 mg/dL Total Creatine Kinase 51 # 21-232 U/L C-Reactive Protein, Quantitative 107.30 H 0.5-3.0 mg/L B-Type Natriuretic Peptide 14 0-100 pg/mL Procalcitonin 5.84 H 0.05-0.5 ng/mL Coagulation Labs: Test 03/25/24 12:00 03/24/24 05:58 Range/Units Prothrombin Time 19.0 H 9.6-11.6 SEC Prothromb Time International Ratio 1.84 H 0.85-1.15 Activated Partial Thromboplast Time 36.9 H 26.3-35.5 SEC DIAGNOSTICS / RADIOLOGY: REASON: PNEUMONIA ORDERING PHYSICIAN: RAMYA COY MD PROCEDURE: CHEST WO - CT CHEST W/O CONTRAST CT CHEST W/O CONTRAST HISTORY: Shortness of breath COMPARISON: None TECHNIQUE: Multiple sequential axial images of the chest were obtained from the thoracic inlet through upper abdomen. Patient was not given contrast through intravenous route. FINDINGS: There is no evidence of pulmonary nodule or parenchymal disease. There are bilateral pleural effusion with left more than right with subsegmental atelectasis. There is no evidence of pneumothorax. There are normal size mediastinal and hilar lymph nodes. The heart is not enlarged. Degenerative changes of the thoracolumbar spine are present. There is no evidence of adrenal nodule. IMPRESSION: 1. Bilateral pleural effusions with left more than right. CT was performed with one or more following dose reduction techniques: automated exposure control, adjustment of the mA and kv according to patient's size, or use of a iterative reconstruction technique. DICTATED BY: ERIN SIBLEY MD DATE: 03/24/241521 REASON: ASCITES, SBP ORDERING PHYSICIAN: SKYLAR HUFF MD PROCEDURE: PARA ABD - US ABDOMINAL PARACENTESIS IR US ABDOMINAL PARACENTESIS IR HISTORY: Ascites COMPARISON: None TECHNIQUE: Informed consent was obtained. Risks and benefits were explained to the patient. A timeout was performed. Patient was prepped and draped in a sterile fashion. Local anesthetics was given as required. Under ultrasound guidance, ascites fluid was localized. Paracentesis was performed. FINDINGS: 1 L of yellowish fluid was aspirated. Less than 2 cc blood loss is noted. Patient tolerated procedure without complication. Patient left the department in good condition. IMPRESSION: 1. Uncomplicated ultrasound guidance paracentesis. DICTATED BY: ERIN SIBLEY MD DATE: 03/24/241523 REASON: chest pain ORDERING PHYSICIAN: SKYLAR HUFF MD PROCEDURE: ECHO CMP - ECHO 2-D COMPLETE APPROVED REPORT EXAM: Two-dimensional and M-mode echocardiogram with Doppler and color Doppler. INDICATION ICD: Chest Pain 2D Dimensions RVDd 3.8 cm LVEF(%) 61.3 (>50%) LVED Vol(simp.) 99.0 mL IVSd 1.1 (0.7-1.1cm) FS(%) 33 % LVES Vol(simp.) 47.0 mL LVDd 4.3 (3.8-5.6cm) LA (2D) 3.6 (1.6-4.0cm) LVEF(%, simp.) 53 % PWd 1.2 (0.7-1.1cm) Ao Root(2D) 3.4 (2.0-3.7cm) LA ESV INDEX (4CH) 14.30 mL/m2 IVSs 1.2 cm LVOT diam 2.4 (1.8-2.4cm) LVDs 2.9 (2.5-4.0cm) IVC diam 1.4 cm PWs 1.5 cm M-Mode Dimensions EPSS 0.7 cm LA (MM) 4.7 (1.6-4.0cm) Ao Root(MM) 3.3 (2.0-3.7cm) Aortic Valve AoV VTI 0.2 m Ao Mean GR 5.0 mmHg LVOT VTI 0.14 m CLARA (VMAX) 2.7 cm2 CLARA (VTI) 2.7 cm2 Mitral Valve MV E Vmax 76.0 cm/s DECEL Time 116 ms MV A Vmax 85.4 cm/s P 1/2 T 35 ms E/A ratio 0.9 MVA (PHT) 6.3 cm2 TDI E/E' Medial 9.7 E/E' Lateral 5.7 Medial E' Peak V 7.80 cm/s Lateral E' Peak V 13.30 cm/s Pulmonary Valve PV VTI 0.21 m PV Mean GR 4 mmHg Left Ventricle The left ventricle is normal size. There is normal LV segmental wall motion. There is normal left ventricular wall thickness. LVEF is 50-55%. The left ventricular diastolic function is normal. Right Ventricle The right ventricle is normal size. The right ventricular systolic function is normal. Atria The left atrium size is normal. The right atrium size is normal. Aortic Valve The aortic valve is normal in structure. No aortic regurgitation is present. There is no aortic valvular stenosis. Mitral Valve The mitral valve is normal in structure. There is no mitral valve regurgitation noted. There is no mitral valve stenosis. Tricuspid Valve The tricuspid valve is normal in structure. There is no tricuspid valve regurgitation noted. Pulmonic Valve The pulmonary valve is normal in structure. There is no pulmonic valvular regurgitation. Great Vessels The aortic root is normal in size. The IVC is normal in size and collapses >50% with inspiration. Pericardium There is no pericardial effusion. Other Information Quality : Good Rhythm : NSR Conclusion LVEF is 50-55%. The left ventricular diastolic function is normal. No significant valvular abnormalities. DICTATED BY: JYOTHI BORRERO DO DATE: 03/24/24 1241 REASON: generalized abdominal pain, cirrhosis ORDERING PHYSICIAN: SKYLAR HUFF MD PROCEDURE: ABD PEL WO - CT ABDOMEN/PELVIS W/O CONTRAST CT ABDOMEN/PELVIS W/O CONTRAST HISTORY: Abdominal pain COMPARISON: 10/09/2023 TECHNIQUE: Multiple sequential axial images of the abdomen and pelvis were obtained from the dome of the diaphragm through symphysis pubis. Patient was not given contrast through intravenous route. Oral contrast was not given. FINDINGS: There are bilateral pleural effusions with compressive atelectasis with left more than right. There is no evidence of parenchymal disease or pulmonary nodule of the visualized lower lungs. Degenerative changes of the thoracolumbar spine are present. The heart is not enlarged. Liver measures 15 cm. The spleen is enlarged measuring 16 cm. There are abdominal varices. There is anasarca. The liver, spleen, adrenal glands and pancreas are unremarkable. There is no evidence of hydronephrosis bilaterally. No evidence of renal stone is seen. Fecal material is seen in the colon. There are normal size retroperitoneal and mesenteric lymph nodes. There is small ascites. Atherosclerotic changes are present. Pelvic sidewalls are symmetric bilaterally. Bladder is well distended without wall thickening. IMPRESSION: 1. Cirrhotic liver with enlarged spleen and abdominal varices and small ascites. Bilateral pleural effusions with left more than right with compressive atelectasis. This was seen on previous study. CT was performed with one or more following dose reduction techniques: automated exposure control, adjustment of the mA and kv according to patient's size, or use of a iterative reconstruction technique. DICTATED BY: ERIN SIBLEY MD DATE: 03/24/24 1017 REASON: CHEST PAIN ORDERING PHYSICIAN: SHAHID GAVIN MD PROCEDURE: CXR1VW - CHEST 1VW CHEST 1VW HISTORY: Chest pain COMPARISON: 12/27/2023 FINDINGS: A frontal projection of the chest was obtained. Mild left lung pulmonary infiltrates are seen with small left pleural effusion. Mild congestive changes are seen. The heart is normal in size. Degenerative changes are seen. No evidence of aortic calcification is seen. IMPRESSION: 1. Mild left lung pulmonary infiltrates are seen with small left pleural effusion. Mild congestive changes are seen. DICTATED BY: ERIN SIBLEY MD DATE: 03/24/24 0646 ASSESSMENT: Acute kidney injury Volume overload Symptomatic left-sided pleural effusion Decompensated liver cirrhosis SBP rule out Chest pain Generalized abdominal pain differential SBP versus GI etiology versus ascites Thrombocytopenia Generalized hives Possible sepsis rule out Normocytic anemia PLAN: Labs, diagnostic, radiologic exams reviewed and interpreted by myself and supervising physician. Patient may have hepatorenal syndrome patient condition is critical We have reviewed external records in detail Start Venofer 300 mg IV daily x 3 doses. Please renally adjust medications Require close monitoring of renal function and electrolytes Order CBC, CMP, and electrolytes in am Continue with antibiotics Renal diabetic diet BiPAP as necessary, for respiratory distress Monitor blood pressure adjust medication doses as needed Avoid hypotensive episodes May use Dilaudid 0.5 mg IV every 6 hours as needed for severe pain Monitor blood sugars Strict intake, output, and daily weight should be monitored Please renally adjust medications Avoid nephrotoxic and nonsteroidal drugs Avoid contrast if possible Will continue to monitor renal function, anemia, electrolytes Treatment plan discussed with patient Questions were answered We have discussed with the other team physicians in detail about the care plan We will continue to monitor the patient closely ATTESTATION BY PHYSICIAN I have seen and examined the patient. I reviewed the documentation, medical decision making, and treatment plan as noted by the mid-level provider above. I agree with the findings and plan of care. KASHIF ADKINS MD, [facility] Mar 25, 2024 14:40
[2024-03-25] MEDS ORDERED: IRON sUCROse COMPLEX 100 MG/5 ML VIAL IVP SCH (15:00)
[2024-03-25] MEDS: IRON SUCROSE COMPLEX 300 MG+/NS 250ML IV SCH (15:00)
[2024-03-25] MEDS: furoSEMIDE 20MG VIAL IV SCH (15:11)
--- NOTE | 2024-03-25 15:18 | HMCIMG ---
CHEST 1VW HISTORY: Left thoracentesis COMPARISON: None FINDINGS: A frontal projection of the chest was obtained. Mild bilateral pulmonary infiltrates are seen may be related to mild pulmonary vascular congestion with possible superimposed pneumonitis. No pneumothorax is seen. The heart is borderline enlarged. Degenerative changes are seen. No evidence of aortic calcification is seen. IMPRESSION: 1. Mild bilateral pulmonary infiltrates are seen may be related to mild pulmonary vascular congestion with possible superimposed pneumonitis. No pneumothorax.
[2024-03-25 15:58] LABS: BODY FLUID RBC 12283 /cu. mm.; BODY FLUID WBC 279 /cu. mm.; GLUCOSE PLEURAL FLUID 129; PROTEIN PLEURAL FLUID 2.1 mg/dL
[2024-03-25 17:20] LABS: APPEARANCE BODY FLUID CLOUDY (CLEAR); COLOR,BODY FLUID ORANGE (LT YELLOW); SPECIMENTYPE,BODY FLUID PLEURAL; TOTAL VOLUME,BODY FLUID 1500 mL
[2024-03-25 17:23] LABS: PH PLEURAL FLUID 7
--- NOTE | 2024-03-25 18:24 | PN ---
[facility] PROGRESS NOTE Date Patient Seen: Mar 25, 2024 Time of Visit: 1217 Supervising Physician: YOSVANY GANNON MD Supervising Physician: Dr. Bob Reason for Consultation Pleural Effusion Primary Care Physician: [ ] Outpatient Specialists: [ ] Inpatient Consults: [ ] PROBLEM LIST: Symptomatic left-sided pleural effusion POA Decompensated liver cirrhosis POA Suspected Hepatorenal syndrome SBP rule out Chest pain likely secondary to coughing Generalized abdominal pain differential SBP versus GI etiology versus ascites Acute kidney injury Volume overload Thrombocytopenia Generalized hives Possible sepsis rule out Normocytic anemia INTERVAL HISTORY: 03/24 Patient is a 49-year-old male past medical history significant for decompensated liver cirrhosis with recurrent paracentesis required for ascites, BEATRICE likely on CKD, who was admitted to the hospital after experiencing shortness of breath. Patient was found to have ascites on scan, paracentesis was performed with removal of 3 L. Patient also has pleural effusion at this time however the patient's INR is 2.34. Administering 10 mg vitamin K and we will recheck INR in the morning for possible thoracentesis. Upon visiting the patient in the ER following the paracentesis patient is breathing easily, on room air, states that he feels much better after the fluid is removed from the abdominal cavity. We will evaluate the patient in the morning for further interventions if necessary. 03/25 Patient is a 49 year old came with SOB , he has dx of liver cirrhosis with recurrent ascites requiring paracentesis every 2 weeks, he underwent for paracentesis with removal of 3 L that came back positive for spontanous bacterial peritonitis, he is on antibiotic therapy , since he marrero been found with pleural effusion to left plan is for thoracentesis procedure has been explained to patient in detail and he agreed to proceed. REVIEW OF SYSTEMS: 12 point ROS reviewed with patient. Pertinent positives mentioned above. Otherwise negative. PHYSICAL EXAM: GENERAL: alert, weak, awake oriented x 3 HEENT: EOMI, Sclera non icteric, moist mucosa NECK: Supple, no JVD, trachea midline LUNGS: Decreased breath sounds HEART: Regular rate and rhythm. Normal S1 and S2, without murmurs ABD: Abdomen soft, nontender. Bowel sounds present, Distended abdomen EXT: No clubbing cyanosis or edema NEURO: Alert and oriented to person, follows commands Vital Signs (last 8hr) Date Time Temp Pulse Resp B/P (MAP) Pulse Ox O2 Delivery O2 Flow Rate FiO2 03/25/24 16:11 97.9 81 16 116/71 100 Room Air 03/25/24 11:37 98.2 91 16 112/71 96 Room Air LABS: Hematology Labs: Test 03/25/24 04:02 03/24/24 05:58 Range/Units White Blood Count 19.0 H 4.8-10.8 K/uL Red Blood Count 3.05 L 4.50-6.20 MIL/uL Hemoglobin 8.2 L 14.0-18.0 g/dL Hematocrit 25.5 L 42-54 % Mean Corpuscular Volume 83.6 79-99 fL Mean Corpuscular Hemoglobin 26.9 L 27.0-33.0 pg Mean Corpuscular Hemoglobin Concent 32.2 32.0-36.0 g/dL Red Cell Distribution Width 15.9 H 11.0-15.5 % Platelet Count 103 L 130-400 K/uL Mean Platelet Volume 10.1 7.5-10.5 fL Segmented Neutrophils % 91 H 40-70 % Band Neutrophils % 1 0-2 % Lymphocytes % (Manual) 6 L 22-44 % Monocytes % (Manual) 2 2-9 % Nucleated Red Blood Cells 0.0 0.0-0.19 % Differential Comment MANUAL DIFFERENTIAL White Cell Morphology Comment NORMAL Platelet Morphology Comment SLIGHTLY DECREASED Red Blood Cell Morphology See comments Immature Granulocyte % (Auto) 0.5 0-1 % Neutrophils (%) (Auto) 85.9 H 40.0-77.0 % Lymphocytes (%) (Auto) 3.2 L 21.0-51.0 % Monocytes (%) (Auto) 5.8 3.0-13.0 % Eosinophils (%) (Auto) 4.2 0.0-8.0 % Basophils (%) (Auto) 0.4 0.0-5.0 % Neutrophils # (Auto) 16.5 H 1.8-7.7 K/uL Lymphocytes # (Auto) 0.6 L 1.0-4.8 K/uL Monocytes # (Auto) 1.1 H 0.1-1.0 K/uL Eosinophils # (Auto) 0.80 H 0.00-0.70 K/uL Basophils # (Auto) 0.07 0.00-0.20 K/uL Absolute Immature Granulocyte (auto 0.10 0-1 K/uL Chemistry Labs: Test 03/25/24 04:02 03/24/24 16:29 03/24/24 09:35 03/24/24 06:41 Range/Units Sodium Level 132 L 136-145 mmol/L Potassium Level 3.8 3.5-5.1 mmol/L Chloride Level 97 L 101-111 mmol/L Carbon Dioxide Level 27 21-32 mmol/L Blood Urea Nitrogen 44 #H 7-18 mg/dL Creatinine 2.5 H 0.5-1.3 mg/dL Glomerular Filtration Rate Calc 31 >90 mL/min Random Glucose 119 #H 70-105 mg/dL Uric Acid 6.2 2.6-7.2 mg/dL Total Calcium 7.4 L 8.5-10.1 mg/dL Phosphorus Level 5.0 H 2.5-4.9 mg/dL Magnesium Level 1.90 1.80-2.40 mg/dL Iron Level 25 #L 65-175 mcg/dL Total Iron Binding Capacity 291 250-450 mcg/dL Percent Iron Saturation 8.5 L 30-44 % Ferritin 225 30-400 ng/mL Total Bilirubin 5.0 #H 0.2-1.0 mg/dL Aspartate Amino Transf (AST/SGOT) 22 10-37 U/L Alanine Aminotransferase (ALT/SGPT) 11 L 12-78 U/L Alkaline Phosphatase 67 50-136 U/L Total Protein 5.1 L 6.0-8.3 g/dL Albumin 2.1 L 3.5-5.0 g/dL Thyroid Stimulating Hormone (TSH) 0.88 # 0.36-3.74 uIU/mL Troponin I High Sensitivity < 4 L 4-75 ng/L Direct Bilirubin 4.4 H 0.0-0.3 mg/dL Ammonia 15 11-32 umol/L Troponin I < 0.05 0.00-0.05 ng/mL Test 03/24/24 05:58 Range/Units Hemoglobin A1c 4.7 4.0-6.0 % Estimated Average Glucose (eAG) 88 70-126 mg/dL Total Creatine Kinase 51 # 21-232 U/L C-Reactive Protein, Quantitative 107.30 H 0.5-3.0 mg/L B-Type Natriuretic Peptide 14 0-100 pg/mL Procalcitonin 5.84 H 0.05-0.5 ng/mL Coagulation Labs: Test 03/25/24 12:00 03/24/24 05:58 Range/Units Prothrombin Time 19.0 H 9.6-11.6 SEC Prothromb Time International Ratio 1.84 H 0.85-1.15 Activated Partial Thromboplast Time 36.9 H 26.3-35.5 SEC DIAGNOSTICS / RADIOLOGY RESULTS: [ ] PLAN : plan for Thoracentesis due to left pleural effusion in a patient with recurrent ascites due to liver cirrhosis NEURO: Minimize central acting medications as possible. Maintain fall precautions, adequate lighting during the day PULMONARY: Supplemental 02 as needed. Maintain aspiration precautions at all times CARDIOVASCULAR: Follow hemodynamics. Vital signs per facility protocol GI & NUTRITION: Continue with nutritional support. Continue stool softeners and laxatives as needed. KIDNEYS & ELECTROLYTES: Strict monitoring of intake, output and overall fluid balance. Avoid nephrotoxic medications to the extent possible. Medications to be dosed according to renal function. Monitor electrolytes and replace as needed ENDOCRINE: Maintain blood glucose between 100-180 at all times. Hypoglycemia protocol in place INFECTIOUS DISEASE: Trend temperature, WBC and procalcitonin level Follow cultures, deescalate antibiotics as soon as possible. Panculture if new onset fever ONCOLOGY/HEMATOLOGY/COAGULATION: Monitor for s/s of bleeding Monitor hemoglobin, coagulation studies as needed SKIN: Pressure ulcer prevention per facility protocol Specialty mattress ORTHO/REHAB: Continue PT/OT Prophylaxis: Continue GI and DVT prophylaxis Code Status: Full Resuscitation Disposition: TBD Other: Total patient care time exceeds 35 minutes excluding all procedures. ATTESTATION BY PHYSICIAN Documentation assistance provided by a scribe, information recorded by the scribe was done at my direction and has been reviewed and validated by me." TERESSA CARRINGTON MD I personally scribed for TERESSA CARRINGTON MD ([email or web address]) on 03/25/24 at 18:24. Electronically submitted by Sravani Mcintyre ([id number]). TERESSA CARRINGTON MD Mar 25, 2024 18:24
[2024-03-25 18:32] LABS: BF LYMPHOCYTE 28 %; BF MACROPHAGE 44; BF MONOCYTE 1 %; BF TOTAL CELLS COUNTED 100
--- NOTE | 2024-03-25 23:37 | NUR ---
PATIENT STATES HE IS WINCING IN ACHING PAIN FROM THORACENTESIS PROCEDURE HE HAD EARLIER TODAY BUT ONLY WHEN HE IS MOVING OR TAKING DEEP BREATHS. PATIENT REQUESTING PAIN MEDICINE. HOSPITALIST NEW ORDER: TRAMADOL 50 MG PO ONCE.
[2024-03-25] MEDS: traMADol HCL 50 MG TABLET PO ONE (23:51)
[2024-03-26] VITALS (8 sets, daily range): BP systolic 102–128; BP diastolic 56–70; PULSE 72–85; RESP 18; TEMP 97.5–98.6; O2SAT 96–99
[2024-03-26 03:54] LABS: HEMATOCRIT 22.3 % (42-54); MEAN CORPUSCULAR HEMOGLOBIN 27.7 pg (27.0-33.0); MEAN CORPUSCULAR HGB CONC 33.2 g/dL (32.0-36.0); MEAN CORPUSCULAR VOLUME 83.5 fL (79-99); RED BLOOD CELL COUNT(AUTO) 2.67 MIL/uL (4.50-6.20); RED CELL DISTRIBUTION WIDTH 15.9 % (11.0-15.5); WHITE BLOOD COUNT (AUTO) 12.7 K/uL (4.8-10.8)
[2024-03-26 04:08] LABS: ALBUMIN 2.2 g/dL (3.5-5.0); BILIRUBIN,TOTAL 3.1 mg/dL (0.2-1.0); CREATININE 1.6 mg/dL (0.5-1.3); MAGNESIUM 2.2 mg/dL (1.80-2.40); PHOSPHORUS 3.3 mg/dL (2.5-4.9); POTASSIUM 3.5 mmol/L (3.5-5.1)
[2024-03-26] MEDS: PoTASSium chloRIDE 20MEQ ER 20 MEQ ERTAB PO PRN (05:39)
--- NOTE | 2024-03-26 13:11 | PN ---
[facility] PROGRESS NOTE Date of Service: Mar 26, 2024 Time of Service: 13:03 SUBJECTIVE: 03/25 Patient has been seen and examined during my rounding earlier this morning, no acute events overnight, currently alert oriented x3, hemodynamically stable, BP 112/71, afebrile, saturating normal on room air, he denies dizziness, no headache, no chest pain, no shortness a breath, nausea, no vomiting, no pain. He looks edematous. at bedside during my visit. 03/26 patient seen at bedside, no acute events overnight. Patient has no complaints at this time. Yesterday he had a thoracentesis with a proximally 2 L drain. The previous day he had a paracentesis which has grown out staph aureus that is methicillin sensitive. He is currently on meropenem, we will follow up with Infectious Disease for possible antibiotic change. He has been afebrile, hemodynamically stable saturating well on room air. WBC improved from 19.0 down to 12.7, hemoglobin decreased from 8.2 down to 7.4, platelets decreased from 103 down to 74, sodium improved from 132 up to 137, creatinine improved from 2.5 down to 1.6, T bili improved from 5.0 down to 3.1, remainder of his labs are relatively unremarkable. REVIEW OF SYSTEMS 12 point review of systems negative unless noted in HPI PHYSICAL EXAM GENERAL APPEARANCE: The patient is awake, alert, and oriented, in no acute cardiopulmonary distress. NEUROLOGICAL: Cranial nerves II-XII grossly intact. Motor is 5/5 in bilateral upper and lower extremities proximal to distal. No sensory deficits. HEENT: Face is symmetric. Pupils are equal and reactive. Extraocular movements are intact. NECK: Supple. No JVD. No thyromegaly. No submental, submandibular, pre- /postauricular, occipital or supraclavicular lymphadenopathy. CHEST: Normal chest expansion. No Telemetry. LUNGS: He has decreased breath sounds on the left side CARDIOVASCULAR: Regular. S1 and S2 normal. No appreciable rubs, murmurs or gallops. ABDOMEN: Soft, generalized mild tenderness, and nondistended. There is no rebound, voluntary guarding, or rigidity. : Deferred. No Rangel. EXTREMITIES: 3+ pitting edema in the lower extremity bilaterally not cyanotic. No clubbing. Good capillary refill. SKIN: No skin breakdown. Vital Signs (last 8hr) Date Time Temp Pulse Resp B/P (MAP) Pulse Ox O2 Delivery O2 Flow Rate FiO2 03/26/24 12:12 98.1 79 18 128/56 96 Room Air 03/26/24 08:21 96 Room Air* 0 21 03/26/24 08:04 98.2 72 18 105/63 96 Room Air LABS: Laboratory: Test 03/26/24 03:32 03/25/24 14:20 03/25/24 12:00 03/25/24 04:02 Range/Units White Blood Count 12.7 #H 4.8-10.8 K/uL Red Blood Count 2.67 L 4.50-6.20 MIL/uL Hemoglobin 7.4 L 14.0-18.0 g/dL Hematocrit 22.3 L 42-54 % Mean Corpuscular Volume 83.5 79-99 fL Mean Corpuscular Hemoglobin 27.7 27.0-33.0 pg Mean Corpuscular Hemoglobin Concent 33.2 32.0-36.0 g/dL Red Cell Distribution Width 15.9 H 11.0-15.5 % Platelet Count 74 #L 130-400 K/uL Mean Platelet Volume 9.4 7.5-10.5 fL Nucleated Red Blood Cells 0.0 0.0-0.19 % Sodium Level 137 136-145 mmol/L Potassium Level 3.5 3.5-5.1 mmol/L Chloride Level 101 101-111 mmol/L Carbon Dioxide Level 30 21-32 mmol/L Blood Urea Nitrogen 49 H 7-18 mg/dL Creatinine 1.6 H 0.5-1.3 mg/dL Glomerular Filtration Rate Calc 52 >90 mL/min Random Glucose 123 H 70-105 mg/dL Total Calcium 7.3 L 8.5-10.1 mg/dL Phosphorus Level 3.3 2.5-4.9 mg/dL Magnesium Level 2.20 1.80-2.40 mg/dL Total Bilirubin 3.1 #H 0.2-1.0 mg/dL Aspartate Amino Transf (AST/SGOT) 25 10-37 U/L Alanine Aminotransferase (ALT/SGPT) 11 L 12-78 U/L Alkaline Phosphatase 81 50-136 U/L Lactate Dehydrogenase 184 81-234 U/L Total Protein 5.0 L 6.0-8.3 g/dL Albumin 2.2 L 3.5-5.0 g/dL Body Fluid Source PLEURAL Body Fluid Volume 1500 mL Body Fluid Color ORANGE H LT YELLOW Body Fluid Supernatant Appearance CLOUDY H CLEAR Body Fluid WBC 279 /cu. mm. Body Fluid RBC 65046 /cu. mm. Body Fluid Neutrophils 27.0 % Body Fluid Lymphocytes 28 % Body Fluid Monocytes % 1 % Body Fluid Macrophages (%) 44 Pleural Fluid pH 7 Pleural Fluid Total Protein 2.1 mg/dL Pleural Fluid LDH 82 U/L Pleural Fluid Glucose 129 Prothrombin Time 19.0 H 9.6-11.6 SEC Prothromb Time International Ratio 1.84 H 0.85-1.15 Segmented Neutrophils % 91 H 40-70 % Band Neutrophils % 1 0-2 % Lymphocytes % (Manual) 6 L 22-44 % Monocytes % (Manual) 2 2-9 % Differential Comment MANUAL DIFFERENTIAL White Cell Morphology Comment NORMAL Platelet Morphology Comment SLIGHTLY DECREASED Red Blood Cell Morphology See comments Uric Acid 6.2 2.6-7.2 mg/dL Iron Level 25 #L 65-175 mcg/dL Total Iron Binding Capacity 291 250-450 mcg/dL Percent Iron Saturation 8.5 L 30-44 % Ferritin 225 30-400 ng/mL Thyroid Stimulating Hormone (TSH) 0.88 # 0.36-3.74 uIU/mL Test 03/24/24 16:29 Range/Units Troponin I High Sensitivity < 4 L 4-75 ng/L Current Medications Medications (Trade) Dose Ordered Sig/Dorothy Route PRN Reason Start Time Stop Time Status Last Admin Dose Admin Albumin Human 50 ml @ 25 mls/hr Q8H IV 03/25/24 01:00 03/25/24 18:59 DC 03/25/24 17:36 25 MLS/HR Albumin Human 50 ml @ 25 mls/hr Q8H5 IV 03/24/24 21:00 03/24/24 21:04 DC Famotidine (Pepcid 20mg Vial) 20 mg Q48H IV 03/24/24 21:00 04/23/24 20:59 03/24/24 22:46 20 MG Furosemide (LASix 20MG VIAL) 20 mg Q12H IV 03/25/24 14:30 04/24/24 14:29 03/26/24 01:29 20 MG Iron Sucrose (VenoFER) 300 mg Q24H IVP 03/25/24 15:00 03/25/24 14:42 DC Iron Sucrose 300 mg/Sodium Chloride 250 ml @ 83 mls/hr Q24H IV 03/25/24 15:00 03/27/24 18:01 Magnesium Sulfate 50 ml @ 0 mls/hr PROTOCOL PRN IV hypomagnesemia 03/24/24 10:00 04/23/24 09:59 Meropenem 1 gm/ Sodium Chloride 100 ml @ 33.333 mls/ hr Q12H IV 03/24/24 07:00 03/24/24 09:37 DC 03/24/24 09:29 33.333 MLS/HR Meropenem 1 gm/ Sodium Chloride 100 ml @ 33.333 mls/ hr Q12H IVPB 03/24/24 21:30 04/03/24 21:29 03/26/24 09:37 33.333 MLS/HR Potassium Chloride 100 ml @ 100 mls/hr AD PRN IV POTASSIUM PROTOCOL 03/24/24 10:00 04/23/24 09:59 Potassium Chloride (K-Dur/Klor-Con 20meq) 20 meq AD PRN PO POTASSIUM PROTOCOL 03/24/24 10:00 04/23/24 09:59 03/26/24 05:39 20 MEQ Potassium Chloride (KCl 10% Elixir 20meq/15ml) 20 meq AD PRN PO POTASSIUM PROTOCOL 03/24/24 10:00 04/23/24 09:59 Thiamine HCl (Vitamin B-1) 100 mg DAILY IVP 03/25/24 09:00 04/24/24 08:59 03/26/24 09:34 100 MG Vitamin B Complex/ Vit C/Folic Acid (Nephrovite Tablet) 1 cap DAILY PO 03/25/24 09:00 04/24/24 08:59 03/26/24 09:34 1 CAP DIAGNOSTICS / RADIOLOGY: [ ] ASSESSMENT: Symptomatic left-sided pleural effusion POA Decompensated liver cirrhosis POA SBP rule out Chest pain likely secondary to coughing Generalized abdominal pain differential SBP versus GI etiology versus ascites Acute kidney injury Volume overload Thrombocytopenia Generalized hives Possible sepsis rule out Normocytic anemia PLAN: - Continue PCCU - Continue meropenem per ID, pt growing staph aureus in ascites fluid - Follow up with thoracentesis cultures - In reference to leukocytosis. Patient will continue on meropenem. - Continue furosemide 20mg IV BID - Pt ammonia normal range with normal mental status. Hold lactulose for now Disposition: Remains admitted to the PCU, patient with decompensated liver cirrhosis, bilateral pleural effusion, follow Pulmonary recommendations, continue antibiotics, continue diuretics. Total PCU time spent greater than 30 minutes. BRIANNE MORENO MD Mar 26, 2024 13:11
--- NOTE | 2024-03-26 14:19 | PN ---
[facility] PROGRESS NOTE Date Patient Seen: Mar 26, 2024 Time of Visit: 14:18 Supervising Physician: Dr. Jordy Matson Reason for Consultation Pleural Effusion Primary Care Physician: [ ] Outpatient Specialists: [ ] Inpatient Consults: [ ] PROBLEM LIST: Symptomatic left-sided pleural effusion POA Decompensated liver cirrhosis POA Suspected Hepatorenal syndrome SBP rule out Chest pain likely secondary to coughing Generalized abdominal pain differential SBP versus GI etiology versus ascites Acute kidney injury Volume overload Thrombocytopenia Generalized hives Possible sepsis rule out Normocytic anemia INTERVAL HISTORY: 03/24 Patient is a 49-year-old male past medical history significant for decompensated liver cirrhosis with recurrent paracentesis required for ascites, BEATRICE likely on CKD, who was admitted to the hospital after experiencing shortness of breath. Patient was found to have ascites on scan, paracentesis was performed with removal of 3 L. Patient also has pleural effusion at this time however the patient's INR is 2.34. Administering 10 mg vitamin K and we will recheck INR in the morning for possible thoracentesis. Upon visiting the patient in the ER following the paracentesis patient is breathing easily, on room air, states that he feels much better after the fluid is removed from the abdominal cavity. We will evaluate the patient in the morning for further interventions if necessary. 03/25 Patient is a 49 year old came with SOB , he has dx of liver cirrhosis with recurrent ascites requiring paracentesis every 2 weeks, he underwent for paracentesis with removal of 3 L that came back positive for spontanous bacterial peritonitis, he is on antibiotic therapy , since he marrero been found with pleural effusion to left plan is for thoracentesis procedure has been explained to patient in detail and he agreed to proceed. 03/26 patient was evaluated at bedside, present at the time of visit. Patient underwent thoracentesis yesterday, procedure was uncomplicated, patient was recovering well. Stated he felt some chest heaviness however this sensation has resolved. Patient's chest x-ray showed no visible pneumothorax. Pleural fluid analysis shows transudative effusion. Patient was cleared for discharge from a pulmonary perspective, we will continue to follow the patient while he remains on the floor. REVIEW OF SYSTEMS: 12 point ROS reviewed with patient. Pertinent positives mentioned above. Otherwise negative. PHYSICAL EXAM: GENERAL: alert, weak, awake oriented x 3 HEENT: EOMI, Sclera non icteric, moist mucosa NECK: Supple, no JVD, trachea midline LUNGS: Decreased breath sounds HEART: Regular rate and rhythm. Normal S1 and S2, without murmurs ABD: Abdomen soft, nontender. Bowel sounds present, Distended abdomen EXT: No clubbing cyanosis or edema NEURO: Alert and oriented to person, follows commands Vital Signs (last 8hr) Date Time Temp Pulse Resp B/P (MAP) Pulse Ox O2 Delivery O2 Flow Rate FiO2 03/26/24 12:12 98.1 79 18 128/56 96 Room Air 03/26/24 08:21 96 Room Air* 0 21 03/26/24 08:04 98.2 72 18 105/63 96 Room Air LABS: Hematology Labs: Test 03/26/24 03:32 03/25/24 04:02 Range/Units White Blood Count 12.7 #H 4.8-10.8 K/uL Red Blood Count 2.67 L 4.50-6.20 MIL/uL Hemoglobin 7.4 L 14.0-18.0 g/dL Hematocrit 22.3 L 42-54 % Mean Corpuscular Volume 83.5 79-99 fL Mean Corpuscular Hemoglobin 27.7 27.0-33.0 pg Mean Corpuscular Hemoglobin Concent 33.2 32.0-36.0 g/dL Red Cell Distribution Width 15.9 H 11.0-15.5 % Platelet Count 74 #L 130-400 K/uL Mean Platelet Volume 9.4 7.5-10.5 fL Nucleated Red Blood Cells 0.0 0.0-0.19 % Segmented Neutrophils % 91 H 40-70 % Band Neutrophils % 1 0-2 % Lymphocytes % (Manual) 6 L 22-44 % Monocytes % (Manual) 2 2-9 % Differential Comment MANUAL DIFFERENTIAL White Cell Morphology Comment NORMAL Platelet Morphology Comment SLIGHTLY DECREASED Red Blood Cell Morphology See comments Chemistry Labs: Test 03/26/24 03:32 03/25/24 04:02 03/24/24 16:29 Range/Units Sodium Level 137 136-145 mmol/L Potassium Level 3.5 3.5-5.1 mmol/L Chloride Level 101 101-111 mmol/L Carbon Dioxide Level 30 21-32 mmol/L Blood Urea Nitrogen 49 H 7-18 mg/dL Creatinine 1.6 H 0.5-1.3 mg/dL Glomerular Filtration Rate Calc 52 >90 mL/min Random Glucose 123 H 70-105 mg/dL Total Calcium 7.3 L 8.5-10.1 mg/dL Phosphorus Level 3.3 2.5-4.9 mg/dL Magnesium Level 2.20 1.80-2.40 mg/dL Total Bilirubin 3.1 #H 0.2-1.0 mg/dL Aspartate Amino Transf (AST/SGOT) 25 10-37 U/L Alanine Aminotransferase (ALT/SGPT) 11 L 12-78 U/L Alkaline Phosphatase 81 50-136 U/L Lactate Dehydrogenase 184 81-234 U/L Total Protein 5.0 L 6.0-8.3 g/dL Albumin 2.2 L 3.5-5.0 g/dL Uric Acid 6.2 2.6-7.2 mg/dL Iron Level 25 #L 65-175 mcg/dL Total Iron Binding Capacity 291 250-450 mcg/dL Percent Iron Saturation 8.5 L 30-44 % Ferritin 225 30-400 ng/mL Thyroid Stimulating Hormone (TSH) 0.88 # 0.36-3.74 uIU/mL Troponin I High Sensitivity < 4 L 4-75 ng/L Coagulation Labs: Test 03/25/24 12:00 Range/Units Prothrombin Time 19.0 H 9.6-11.6 SEC Prothromb Time International Ratio 1.84 H 0.85-1.15 DIAGNOSTICS / RADIOLOGY RESULTS: [ ] PLAN : plan for Thoracentesis due to left pleural effusion in a patient with recurrent ascites due to liver cirrhosis NEURO: Minimize central acting medications as possible. Maintain fall precautions, adequate lighting during the day PULMONARY: Supplemental 02 as needed. Maintain aspiration precautions at all times CARDIOVASCULAR: Follow hemodynamics. Vital signs per facility protocol GI & NUTRITION: Continue with nutritional support. Continue stool softeners and laxatives as needed. KIDNEYS & ELECTROLYTES: Strict monitoring of intake, output and overall fluid balance. Avoid nephrotoxic medications to the extent possible. Medications to be dosed according to renal function. Monitor electrolytes and replace as needed ENDOCRINE: Maintain blood glucose between 100-180 at all times. Hypoglycemia protocol in place INFECTIOUS DISEASE: Trend temperature, WBC and procalcitonin level Follow cultures, deescalate antibiotics as soon as possible. Panculture if new onset fever ONCOLOGY/HEMATOLOGY/COAGULATION: Monitor for s/s of bleeding Monitor hemoglobin, coagulation studies as needed SKIN: Pressure ulcer prevention per facility protocol Specialty mattress ORTHO/REHAB: Continue PT/OT Prophylaxis: Continue GI and DVT prophylaxis Code Status: Full Resuscitation Disposition: TBD Other: Total patient care time exceeds 35 minutes excluding all procedures. CHULA BARR Mar 26, 2024 14:19
--- NOTE | 2024-03-26 15:02 | PN ---
NEPHROLOGY PROGRESS NOTE Date/Time Patient Seen: Mar 26, 2024 SUBJECTIVE: This is a 49-year-old male with a past medical history of alcoholic liver cirrhosis with the current paracentesis. He presented to the emergency with complaints of shortness of breath, cough and phlegm. S/p paracentesis with 1 L removed He did receive Albumin Chest x-ray showed left-sided pleural effusion. S/p paracentesis with1 L removed Ascites fluid was growing Staphylococcus aureus He continues on antibiotics as per ID He was noted with elevated BUN/creatinine. We are consulted for renal failure. Renal function is improving Electrolytes are stable. Hemoglobin is stable He has been started on Venofer for anemia He was seen in the medical floor, in no acute distress No family at the bedside Prognosis remains guarded REVIEW OF SYSTEMS: GENERAL: Positive for generalized weakness NEUROLOGIC: Negative for any blurry vision, blind spots, double vision, facial asymmetry, dysphagia, dysarthria, hemiparesis, hemisensory deficits, vertigo, ataxia. HEENT: Negative for any head trauma, neck trauma, neck stiffness, photophobia, phonophobia, sinusitis, rhinitis. CARDIAC: Negative for any chest pain, dyspnea on exertion, paroxysmal nocturnal dyspnea, peripheral edema. PULMONARY: Negative for any shortness of breath, wheezing, COPD, or TB exposure. GASTROINTESTINAL: Negative for any abdominal pain, nausea, vomiting, bright red blood per rectum, melena. GENITOURINARY: Negative for any dysuria, hematuria, incontinence. INTEGUMENTARY: Negative for any rashes, cuts, insect bites. RHEUMATOLOGIC: Negative for any joint pains, photosensitive rashes, history of vasculitis or kidney problems. HEMATOLOGIC: Negative for any abnormal bruising, frequent infections or bleeding. PHYSICAL EXAM: GENERAL: Alert and oriented x 3. No acute distress. Well-nourished. EYES: EOMI. Anicteric. HENT: Moist mucous membranes. No scleral icterus. No cervical lymphadenopathy. LUNGS: Clear to auscultation bilaterally. No accessory muscle use. CARDIOVASCULAR: Regular rate and rhythm. No murmur. No JVD. ABDOMEN: Soft, non-tender and non-distended. No palpable masses. EXTREMITIES: No edema. Non-tender. SKIN: No rashes or lesions. Warm. NEUROLOGIC: No focal neurological deficits. CN II-XII grossly intact, but not individually tested. PSYCHIATRIC: Cooperative. Appropriate mood and affect. LABORATORY: [ ] Hematology Labs: Test 03/26/24 03:32 03/25/24 04:02 Range/Units White Blood Count 12.7 #H 4.8-10.8 K/uL Red Blood Count 2.67 L 4.50-6.20 MIL/uL Hemoglobin 7.4 L 14.0-18.0 g/dL Hematocrit 22.3 L 42-54 % Mean Corpuscular Volume 83.5 79-99 fL Mean Corpuscular Hemoglobin 27.7 27.0-33.0 pg Mean Corpuscular Hemoglobin Concent 33.2 32.0-36.0 g/dL Red Cell Distribution Width 15.9 H 11.0-15.5 % Platelet Count 74 #L 130-400 K/uL Mean Platelet Volume 9.4 7.5-10.5 fL Nucleated Red Blood Cells 0.0 0.0-0.19 % Segmented Neutrophils % 91 H 40-70 % Band Neutrophils % 1 0-2 % Lymphocytes % (Manual) 6 L 22-44 % Monocytes % (Manual) 2 2-9 % Differential Comment MANUAL DIFFERENTIAL White Cell Morphology Comment NORMAL Platelet Morphology Comment SLIGHTLY DECREASED Red Blood Cell Morphology See comments Chemistry Labs: Test 03/26/24 03:32 03/25/24 04:02 03/24/24 16:29 Range/Units Sodium Level 137 136-145 mmol/L Potassium Level 3.5 3.5-5.1 mmol/L Chloride Level 101 101-111 mmol/L Carbon Dioxide Level 30 21-32 mmol/L Blood Urea Nitrogen 49 H 7-18 mg/dL Creatinine 1.6 H 0.5-1.3 mg/dL Glomerular Filtration Rate Calc 52 >90 mL/min Random Glucose 123 H 70-105 mg/dL Total Calcium 7.3 L 8.5-10.1 mg/dL Phosphorus Level 3.3 2.5-4.9 mg/dL Magnesium Level 2.20 1.80-2.40 mg/dL Total Bilirubin 3.1 #H 0.2-1.0 mg/dL Aspartate Amino Transf (AST/SGOT) 25 10-37 U/L Alanine Aminotransferase (ALT/SGPT) 11 L 12-78 U/L Alkaline Phosphatase 81 50-136 U/L Lactate Dehydrogenase 184 81-234 U/L Total Protein 5.0 L 6.0-8.3 g/dL Albumin 2.2 L 3.5-5.0 g/dL Uric Acid 6.2 2.6-7.2 mg/dL Iron Level 25 #L 65-175 mcg/dL Total Iron Binding Capacity 291 250-450 mcg/dL Percent Iron Saturation 8.5 L 30-44 % Ferritin 225 30-400 ng/mL Thyroid Stimulating Hormone (TSH) 0.88 # 0.36-3.74 uIU/mL Troponin I High Sensitivity < 4 L 4-75 ng/L Coagulation Labs: Test 03/25/24 12:00 Range/Units Prothrombin Time 19.0 H 9.6-11.6 SEC Prothromb Time International Ratio 1.84 H 0.85-1.15 DIAGNOSTICS / RADIOLOGY: REASON: s/p thoracentesis to left ORDERING PHYSICIAN: KERMIT ALEXANDRA PROCEDURE: CXR1VW - CHEST 1VW CHEST 1VW HISTORY: Left thoracentesis COMPARISON: None FINDINGS: A frontal projection of the chest was obtained. Mild bilateral pulmonary infiltrates are seen may be related to mild pulmonary vascular congestion with possible superimposed pneumonitis. No pneumothorax is seen. The heart is borderline enlarged. Degenerative changes are seen. No evidence of aortic calcification is seen. IMPRESSION: 1. Mild bilateral pulmonary infiltrates are seen may be related to mild pulmonary vascular congestion with possible superimposed pneumonitis. No pneumothorax. DICTATED BY: ERIN SIBLEY MD DATE: 03/25/24 1515 REASON: PNEUMONIA ORDERING PHYSICIAN: RAMYA COY MD PROCEDURE: CHEST WO - CT CHEST W/O CONTRAST CT CHEST W/O CONTRAST HISTORY: Shortness of breath COMPARISON: None TECHNIQUE: Multiple sequential axial images of the chest were obtained from the thoracic inlet through upper abdomen. Patient was not given contrast through intravenous route. FINDINGS: There is no evidence of pulmonary nodule or parenchymal disease. There are bilateral pleural effusion with left more than right with subsegmental atelectasis. There is no evidence of pneumothorax. There are normal size mediastinal and hilar lymph nodes. The heart is not enlarged. Degenerative changes of the thoracolumbar spine are present. There is no evidence of adrenal nodule. IMPRESSION: 1. Bilateral pleural effusions with left more than right. CT was performed with one or more following dose reduction techniques: automated exposure control, adjustment of the mA and kv according to patient's size, or use of a iterative reconstruction technique. DICTATED BY: ERIN SIBLEY MD DATE: 03/24/241521 REASON: ASCITES, SBP ORDERING PHYSICIAN: SKYLAR HUFF MD PROCEDURE: PARA ABD - US ABDOMINAL PARACENTESIS IR US ABDOMINAL PARACENTESIS IR HISTORY: Ascites COMPARISON: None TECHNIQUE: Informed consent was obtained. Risks and benefits were explained to the patient. A timeout was performed. Patient was prepped and draped in a sterile fashion. Local anesthetics was given as required. Under ultrasound guidance, ascites fluid was localized. Paracentesis was performed. FINDINGS: 1 L of yellowish fluid was aspirated. Less than 2 cc blood loss is noted. Patient tolerated procedure without complication. Patient left the department in good condition. IMPRESSION: 1. Uncomplicated ultrasound guidance paracentesis. DICTATED BY: ERIN SIBLEY MD DATE: 03/24/241523 REASON: chest pain ORDERING PHYSICIAN: SKYLAR HUFF MD PROCEDURE: ECHO CMP - ECHO 2-D COMPLETE APPROVED REPORT EXAM: Two-dimensional and M-mode echocardiogram with Doppler and color Doppler. INDICATION ICD: Chest Pain 2D Dimensions RVDd 3.8 cm LVEF(%) 61.3 (>50%) LVED Vol(simp.) 99.0 mL IVSd 1.1 (0.7-1.1cm) FS(%) 33 % LVES Vol(simp.) 47.0 mL LVDd 4.3 (3.8-5.6cm) LA (2D) 3.6 (1.6-4.0cm) LVEF(%, simp.) 53 % PWd 1.2 (0.7-1.1cm) Ao Root(2D) 3.4 (2.0-3.7cm) LA ESV INDEX (4CH) 14.30 mL/m2 IVSs 1.2 cm LVOT diam 2.4 (1.8-2.4cm) LVDs 2.9 (2.5-4.0cm) IVC diam 1.4 cm PWs 1.5 cm M-Mode Dimensions EPSS 0.7 cm LA (MM) 4.7 (1.6-4.0cm) Ao Root(MM) 3.3 (2.0-3.7cm) Aortic Valve AoV VTI 0.2 m Ao Mean GR 5.0 mmHg LVOT VTI 0.14 m CLARA (VMAX) 2.7 cm2 CLARA (VTI) 2.7 cm2 Mitral Valve MV E Vmax 76.0 cm/s DECEL Time 116 ms MV A Vmax 85.4 cm/s P 1/2 T 35 ms E/A ratio 0.9 MVA (PHT) 6.3 cm2 TDI E/E' Medial 9.7 E/E' Lateral 5.7 Medial E' Peak V 7.80 cm/s Lateral E' Peak V 13.30 cm/s Pulmonary Valve PV VTI 0.21 m PV Mean GR 4 mmHg Left Ventricle The left ventricle is normal size. There is normal LV segmental wall motion. There is normal left ventricular wall thickness. LVEF is 50-55%. The left ventricular diastolic function is normal. Right Ventricle The right ventricle is normal size. The right ventricular systolic function is normal. Atria The left atrium size is normal. The right atrium size is normal. Aortic Valve The aortic valve is normal in structure. No aortic regurgitation is present. There is no aortic valvular stenosis. Mitral Valve The mitral valve is normal in structure. There is no mitral valve regurgitation noted. There is no mitral valve stenosis. Tricuspid Valve The tricuspid valve is normal in structure. There is no tricuspid valve regurgitation noted. Pulmonic Valve The pulmonary valve is normal in structure. There is no pulmonic valvular regurgitation. Great Vessels The aortic root is normal in size. The IVC is normal in size and collapses >50% with inspiration. Pericardium There is no pericardial effusion. Other Information Quality : Good Rhythm : NSR Conclusion LVEF is 50-55%. The left ventricular diastolic function is normal. No significant valvular abnormalities. DICTATED BY: JYOTHI BORRERO DO DATE: 03/24/24 1241 REASON: generalized abdominal pain, cirrhosis ORDERING PHYSICIAN: SKYLAR HUFF MD PROCEDURE: ABD PEL WO - CT ABDOMEN/PELVIS W/O CONTRAST CT ABDOMEN/PELVIS W/O CONTRAST HISTORY: Abdominal pain COMPARISON: 10/09/2023 TECHNIQUE: Multiple sequential axial images of the abdomen and pelvis were obtained from the dome of the diaphragm through symphysis pubis. Patient was not given contrast through intravenous route. Oral contrast was not given. FINDINGS: There are bilateral pleural effusions with compressive atelectasis with left more than right. There is no evidence of parenchymal disease or pulmonary nodule of the visualized lower lungs. Degenerative changes of the thoracolumbar spine are present. The heart is not enlarged. Liver measures 15 cm. The spleen is enlarged measuring 16 cm. There are abdominal varices. There is anasarca. The liver, spleen, adrenal glands and pancreas are unremarkable. There is no evidence of hydronephrosis bilaterally. No evidence of renal stone is seen. Fecal material is seen in the colon. There are normal size retroperitoneal and mesenteric lymph nodes. There is small ascites. Atherosclerotic changes are present. Pelvic sidewalls are symmetric bilaterally. Bladder is well distended without wall thickening. IMPRESSION: 1. Cirrhotic liver with enlarged spleen and abdominal varices and small ascites. Bilateral pleural effusions with left more than right with compressive atelectasis. This was seen on previous study. CT was performed with one or more following dose reduction techniques: automated exposure control, adjustment of the mA and kv according to patient's size, or use of a iterative reconstruction technique. DICTATED BY: ERIN SIBLEY MD DATE: 03/24/24 1017 REASON: CHEST PAIN ORDERING PHYSICIAN: SHAHID GAVIN MD PROCEDURE: CXR1VW - CHEST 1VW CHEST 1VW HISTORY: Chest pain COMPARISON: 12/27/2023 FINDINGS: A frontal projection of the chest was obtained. Mild left lung pulmonary infiltrates are seen with small left pleural effusion. Mild congestive changes are seen. The heart is normal in size. Degenerative changes are seen. No evidence of aortic calcification is seen. IMPRESSION: 1. Mild left lung pulmonary infiltrates are seen with small left pleural effusion. Mild congestive changes are seen. DICTATED BY: ERIN SIBLEY MD DATE: 03/24/24 0646 ASSESSMENT: Acute kidney injury Volume overload Symptomatic left-sided pleural effusion Decompensated liver cirrhosis SBP rule out Chest pain Generalized abdominal pain differential SBP versus GI etiology versus ascites Thrombocytopenia Generalized hives Possible sepsis rule out Normocytic anemia PLAN: Labs, diagnostic, radiologic exams reviewed and interpreted by myself and supervising physician. We have reviewed external records in detail Patient may have hepatorenal syndrome patient condition is critical Continue with antibiotics as per ID Continue with Venofer 300 mg IV daily x 3 doses. Please renally adjust medications Require close monitoring of renal function and electrolytes Order CBC, CMP, and electrolytes in am Continue with antibiotics Renal diabetic diet BiPAP as necessary, for respiratory distress Monitor blood pressure adjust medication doses as needed Avoid hypotensive episodes May use Dilaudid 0.5 mg IV every 6 hours as needed for severe pain Monitor blood sugars Strict intake, output, and daily weight should be monitored Please renally adjust medications Avoid nephrotoxic and nonsteroidal drugs Avoid contrast if possible Will continue to monitor renal function, anemia, electrolytes Treatment plan discussed with patient Questions were answered We have discussed with the other team physicians in detail about the care plan We will continue to monitor the patient closely ATTESTATION BY PHYSICIAN I have seen and examined the patient. I reviewed the documentation, medical decision making, and treatment plan as noted by the mid-level provider above. I agree with the findings and plan of care. KASHIF ADKINS MD, [facility] Mar 26, 2024 15:02
--- NOTE | 2024-03-26 15:22 | PN ---
INFECTIOUS DISEASE PROGRESS NOTE Date of Service: Mar 26, 2024 SUBJECTIVE: Disappointed 9-year-old patient who was seen and examined at bedside in room 227. Patient is awake, alert and oriented x 3. Patient is status post thoracentesis with 2 L removed on 03/25/2024. No shortness of breaths observe and patient is saturating 96% on room air. No fever, temperature is 98.1 and the WBC has trended down to 12.7. Patient continues on meropenem. We will continue to monitor patient. PHYSICAL EXAM EYES: Anicteric. Pupils equal and reactive. HENT: No oral thrush seen, moist Oral mucosa NECK: Supple, no JVD or thyromegaly. LUNGS: Good air entry. No rales, no rhonchi. CARDIOVASCULAR: S1, S2 regular. No murmur heard. ABDOMEN: Soft, non tender, bowel sounds present, no organomegaly CENTRAL NERVOUS SYSTEM: Awake, alert, oriented x 3. No focal deficits. SKIN: No rashes, no swelling. LYMPHATICS: No peripheral lymphadenopathy MUSCULOSKELETAL: No joint swelling, erythema or tenderness. EXTREMITIES: No cyanosis or clubbing BACK: No deformity, no pressure ulcer. GENITOURINARY: No dysuria or hematuria Vital Sign (Last 12 Hours) 03/26/24 03/26/24 03/26/24 03/26/24 04:05 08:04 08:21 12:12 Temp 97.5 98.2 98.1 Pulse 81 72 79 Resp 18 18 18 B/P (MAP) 102/64 105/63 128/56 Pulse Ox 97 96 96 96 O2 Delivery Room Air Room Air Room Air* Room Air O2 Flow Rate 0 FiO2 21 Intake & Output (last 24hrs) 03/25/24 03/25/24 03/26/24 15:00 23:00 07:00 Intake Total 240 ml 240 ml Balance 240 ml 240 ml LABS: Laboratory: Test 03/26/24 03:32 03/25/24 14:20 03/25/24 12:00 03/25/24 04:02 Range/Units White Blood Count 12.7 #H 4.8-10.8 K/uL Red Blood Count 2.67 L 4.50-6.20 MIL/uL Hemoglobin 7.4 L 14.0-18.0 g/dL Hematocrit 22.3 L 42-54 % Mean Corpuscular Volume 83.5 79-99 fL Mean Corpuscular Hemoglobin 27.7 27.0-33.0 pg Mean Corpuscular Hemoglobin Concent 33.2 32.0-36.0 g/dL Red Cell Distribution Width 15.9 H 11.0-15.5 % Platelet Count 74 #L 130-400 K/uL Mean Platelet Volume 9.4 7.5-10.5 fL Nucleated Red Blood Cells 0.0 0.0-0.19 % Sodium Level 137 136-145 mmol/L Potassium Level 3.5 3.5-5.1 mmol/L Chloride Level 101 101-111 mmol/L Carbon Dioxide Level 30 21-32 mmol/L Blood Urea Nitrogen 49 H 7-18 mg/dL Creatinine 1.6 H 0.5-1.3 mg/dL Glomerular Filtration Rate Calc 52 >90 mL/min Random Glucose 123 H 70-105 mg/dL Total Calcium 7.3 L 8.5-10.1 mg/dL Phosphorus Level 3.3 2.5-4.9 mg/dL Magnesium Level 2.20 1.80-2.40 mg/dL Total Bilirubin 3.1 #H 0.2-1.0 mg/dL Aspartate Amino Transf (AST/SGOT) 25 10-37 U/L Alanine Aminotransferase (ALT/SGPT) 11 L 12-78 U/L Alkaline Phosphatase 81 50-136 U/L Lactate Dehydrogenase 184 81-234 U/L Total Protein 5.0 L 6.0-8.3 g/dL Albumin 2.2 L 3.5-5.0 g/dL Body Fluid Source PLEURAL Body Fluid Volume 1500 mL Body Fluid Color ORANGE H LT YELLOW Body Fluid Supernatant Appearance CLOUDY H CLEAR Body Fluid WBC 279 /cu. mm. Body Fluid RBC 11739 /cu. mm. Body Fluid Neutrophils 27.0 % Body Fluid Lymphocytes 28 % Body Fluid Monocytes % 1 % Body Fluid Macrophages (%) 44 Pleural Fluid pH 7 Pleural Fluid Total Protein 2.1 mg/dL Pleural Fluid LDH 82 U/L Pleural Fluid Glucose 129 Prothrombin Time 19.0 H 9.6-11.6 SEC Prothromb Time International Ratio 1.84 H 0.85-1.15 Segmented Neutrophils % 91 H 40-70 % Band Neutrophils % 1 0-2 % Lymphocytes % (Manual) 6 L 22-44 % Monocytes % (Manual) 2 2-9 % Differential Comment MANUAL DIFFERENTIAL White Cell Morphology Comment NORMAL Platelet Morphology Comment SLIGHTLY DECREASED Red Blood Cell Morphology See comments Uric Acid 6.2 2.6-7.2 mg/dL Iron Level 25 #L 65-175 mcg/dL Total Iron Binding Capacity 291 250-450 mcg/dL Percent Iron Saturation 8.5 L 30-44 % Ferritin 225 30-400 ng/mL Thyroid Stimulating Hormone (TSH) 0.88 # 0.36-3.74 uIU/mL Test 03/24/24 16:29 Range/Units Troponin I High Sensitivity < 4 L 4-75 ng/L ASSESSMENT: Spontaneous bacterial peritonitis. Sepsis. Leukocytosis. Ascites s/p paracentesis with 1 L removed on 03/24/2024.. Bilateral pleural effusions, status post left thoracentesis with2 L removed. Renal failure. PLAN: Continues with meropenem. Continue GI prophylaxis. Continue diuretics. Continue current management. We will monitor electrolytes. This case was reviewed and discussed with my supervising physician and the above assessment and plan was formulated and agreed upon. ATTESTATION BY PHYSICIAN I have seen and examined the patient. I reviewed the documentation, medical decision making, and treatment plan as noted by the mid-level provider above. I agree with the findings and plan of care. RAMYA COY MD, [facility] Mar 26, 2024 15:22
[2024-03-27] VITALS (9 sets, daily range): BP systolic 120–140; BP diastolic 71–82; PULSE 89–109; RESP 18–20; TEMP 97.6–99.8; O2SAT 95–99
[2024-03-27 04:02] LABS: BASOPHILS # (AUTO) 0.01 K/uL (0.00-0.20); BASOPHILS % (AUTO) 0.1 % (0.0-5.0); EOSINOPHILS # (AUTO) 0.27 K/uL (0.00-0.70); EOSINOPHILS % (AUTO) 3.5 % (0.0-8.0); HEMATOCRIT 24.7 % (42-54); IMMATURE GRANULOCYTE ABSOLUTE 0.13 K/uL (0-1); LYMPHOCYTES # (AUTO) 0.8 K/uL (1.0-4.8); LYMPHOCYTES % (AUTO) 10.3 % (21.0-51.0); MEAN CORPUSCULAR HEMOGLOBIN 27.7 pg (27.0-33.0); MEAN CORPUSCULAR HGB CONC 32.4 g/dL (32.0-36.0); MEAN CORPUSCULAR VOLUME 85.5 fL (79-99); MONOCYTES # (AUTO) 1.2 K/uL (0.1-1.0); MONOCYTES % (AUTO) 15.6 % (3.0-13.0); NEUTROPHILS # (AUTO) 5.3 K/uL (1.8-7.7); NEUTROPHILS % (AUTO) 68.8 % (40.0-77.0); PLATELET COUNT (AUTO) 76 K/uL (130-400); RED BLOOD CELL COUNT(AUTO) 2.89 MIL/uL (4.50-6.20); RED CELL DISTRIBUTION WIDTH 16.4 % (11.0-15.5); WHITE BLOOD COUNT (AUTO) 7.6 K/uL (4.8-10.8)
[2024-03-27 04:34] LABS: ALBUMIN 2.1 g/dL (3.5-5.0); BILIRUBIN,TOTAL 2.6 mg/dL (0.2-1.0); CREATININE 1.1 mg/dL (0.5-1.3); MAGNESIUM 2.1 mg/dL (1.80-2.40); POTASSIUM 3.3 mmol/L (3.5-5.1)
--- NOTE | 2024-03-27 13:06 | PN ---
[facility] PROGRESS NOTE Date Patient Seen: Mar 27, 2024 Time of Visit: 13:06 Supervising Physician: Dr. Jordy Matson Reason for Consultation Pleural Effusion Primary Care Physician: [ ] Outpatient Specialists: [ ] Inpatient Consults: [ ] PROBLEM LIST: Symptomatic left-sided pleural effusion POA , s/p thoracentesis performed on 03/25/2024, transudative effusion Community-acquired pneumonia Decompensated liver cirrhosis POA Suspected Hepatorenal syndrome SBP rule out Chest pain likely secondary to coughing Generalized abdominal pain differential SBP versus GI etiology versus ascites Acute kidney injury Volume overload Thrombocytopenia Generalized hives Possible sepsis rule out Normocytic anemia INTERVAL HISTORY: 03/24 Patient is a 49-year-old male past medical history significant for decompensated liver cirrhosis with recurrent paracentesis required for ascites, BEATRICE likely on CKD, who was admitted to the hospital after experiencing shortness of breath. Patient was found to have ascites on scan, paracentesis was performed with removal of 3 L. Patient also has pleural effusion at this time however the patient's INR is 2.34. Administering 10 mg vitamin K and we will recheck INR in the morning for possible thoracentesis. Upon visiting the patient in the ER following the paracentesis patient is breathing easily, on room air, states that he feels much better after the fluid is removed from the abdominal cavity. We will evaluate the patient in the morning for further interventions if necessary. 03/25 Patient is a 49 year old came with SOB , he has dx of liver cirrhosis with recurrent ascites requiring paracentesis every 2 weeks, he underwent for paracentesis with removal of 3 L that came back positive for spontanous bacterial peritonitis, he is on antibiotic therapy , since he marrero been found with pleural effusion to left plan is for thoracentesis procedure has been explained to patient in detail and he agreed to proceed. 03/26 patient was evaluated at bedside, present at the time of visit. Patient underwent thoracentesis yesterday, procedure was uncomplicated, patient was recovering well. Stated he felt some chest heaviness however this sensation has resolved. Patient's chest x-ray showed no visible pneumothorax. Pleural fluid analysis shows transudative effusion. Patient was cleared for discharge from a pulmonary perspective, we will continue to follow the patient while he remains on the floor. 03/27 patient was evaluated at bedside with present, he is doing well today, remains on room air at this time denies any discomfort or chest pain, patient denies any cough as well. Patient continues on nebulizer treatments, and cefazolin. Chest x-ray from 03/25 shows moderate bilateral pulmonary infiltrates, we will order chest x-ray for tomorrow morning to re-evaluate the patient's progress with the pneumonia diagnosis. Patient's white count today is back within normal limits, 7.6. Hemoglobin stable at 8.0, up from 7.4 yesterday , patient's renal function is back within normal limits today. We will continue to monitor the patient's progress while he is on the floor. REVIEW OF SYSTEMS: 12 point ROS reviewed with patient. Pertinent positives mentioned above. Otherwise negative. PHYSICAL EXAM: GENERAL: alert, weak, awake oriented x 3 HEENT: EOMI, Sclera non icteric, moist mucosa NECK: Supple, no JVD, trachea midline LUNGS: Decreased breath sounds HEART: Regular rate and rhythm. Normal S1 and S2, without murmurs ABD: Abdomen soft, nontender. Bowel sounds present, Distended abdomen EXT: No clubbing cyanosis or edema NEURO: Alert and oriented to person, follows commands Vital Signs (last 8hr) Date Time Temp Pulse Resp B/P (MAP) Pulse Ox O2 Delivery O2 Flow Rate FiO2 03/27/24 12:48 99 Room Air* 0 21 03/27/24 11:54 98.8 98 18 123/72 98 Room Air 03/27/24 08:00 97.5 90 18 120/72 96 Room Air 21 LABS: Hematology Labs: Test 03/27/24 03:43 Range/Units White Blood Count 7.6 4.8-10.8 K/uL Red Blood Count 2.89 L 4.50-6.20 MIL/uL Hemoglobin 8.0 L 14.0-18.0 g/dL Hematocrit 24.7 L 42-54 % Mean Corpuscular Volume 85.5 79-99 fL Mean Corpuscular Hemoglobin 27.7 27.0-33.0 pg Mean Corpuscular Hemoglobin Concent 32.4 32.0-36.0 g/dL Red Cell Distribution Width 16.4 H 11.0-15.5 % Platelet Count 76 L 130-400 K/uL Mean Platelet Volume 9.6 7.5-10.5 fL Immature Granulocyte % (Auto) 1.7 H 0-1 % Neutrophils (%) (Auto) 68.8 40.0-77.0 % Lymphocytes (%) (Auto) 10.3 L 21.0-51.0 % Monocytes (%) (Auto) 15.6 H 3.0-13.0 % Eosinophils (%) (Auto) 3.5 0.0-8.0 % Basophils (%) (Auto) 0.1 0.0-5.0 % Neutrophils # (Auto) 5.3 1.8-7.7 K/uL Lymphocytes # (Auto) 0.8 L 1.0-4.8 K/uL Monocytes # (Auto) 1.2 H 0.1-1.0 K/uL Eosinophils # (Auto) 0.27 0.00-0.70 K/uL Basophils # (Auto) 0.01 0.00-0.20 K/uL Absolute Immature Granulocyte (auto 0.13 0-1 K/uL Nucleated Red Blood Cells 0.0 0.0-0.19 % Chemistry Labs: Test 03/27/24 03:43 03/26/24 03:32 Range/Units Sodium Level 141 136-145 mmol/L Potassium Level 3.3 L 3.5-5.1 mmol/L Chloride Level 105 101-111 mmol/L Carbon Dioxide Level 32 21-32 mmol/L Blood Urea Nitrogen 35 H 7-18 mg/dL Creatinine 1.1 0.5-1.3 mg/dL Glomerular Filtration Rate Calc 82 >90 mL/min Random Glucose 97 70-105 mg/dL Total Calcium 7.5 L 8.5-10.1 mg/dL Phosphorus Level 3.0 2.5-4.9 mg/dL Magnesium Level 2.10 1.80-2.40 mg/dL Total Bilirubin 2.6 H 0.2-1.0 mg/dL Aspartate Amino Transf (AST/SGOT) 28 10-37 U/L Alanine Aminotransferase (ALT/SGPT) 17 12-78 U/L Alkaline Phosphatase 108 50-136 U/L Total Protein 5.0 L 6.0-8.3 g/dL Albumin 2.1 L 3.5-5.0 g/dL Lactate Dehydrogenase 184 81-234 U/L DIAGNOSTICS / RADIOLOGY RESULTS: [ ] PLAN : plan for Thoracentesis due to left pleural effusion in a patient with recurrent ascites due to liver cirrhosis NEURO: Minimize central acting medications as possible. Maintain fall precautions, adequate lighting during the day PULMONARY: Supplemental 02 as needed. Maintain aspiration precautions at all times CARDIOVASCULAR: Follow hemodynamics. Vital signs per facility protocol GI & NUTRITION: Continue with nutritional support. Continue stool softeners and laxatives as needed. KIDNEYS & ELECTROLYTES: Strict monitoring of intake, output and overall fluid balance. Avoid nephrotoxic medications to the extent possible. Medications to be dosed according to renal function. Monitor electrolytes and replace as needed ENDOCRINE: Maintain blood glucose between 100-180 at all times. Hypoglycemia protocol in place INFECTIOUS DISEASE: Trend temperature, WBC and procalcitonin level Follow cultures, deescalate antibiotics as soon as possible. Panculture if new onset fever ONCOLOGY/HEMATOLOGY/COAGULATION: Monitor for s/s of bleeding Monitor hemoglobin, coagulation studies as needed SKIN: Pressure ulcer prevention per facility protocol Specialty mattress ORTHO/REHAB: Continue PT/OT Prophylaxis: Continue GI and DVT prophylaxis Code Status: Full Resuscitation Disposition: TBD Other: Total patient care time exceeds 35 minutes excluding all procedures. CHULA BARR Mar 27, 2024 13:06
--- NOTE | 2024-03-27 13:23 | PN ---
SUBJECTIVE: A 49-year-old male with a history of known cirrhosis, status post paracentesis. The patient initially admitted with increasing shortness of breath. The patient did undergo paracentesis and pulmonary symptoms have improved. The patient with gram-positive peritonitis and remains on the antibiotics. The patient is being seen as a followup visit for all of the above. REVIEW OF SYSTEMS: GENERAL: He is feeling much improved. HEENT: No change in vision. No change in hearing. CARDIOVASCULAR: There is no current chest pain or palpitations. PULMONARY: No shortness of breath. GASTROINTESTINAL: He is tolerating a diet. MUSCULOSKELETAL: Complains of weakness. PHYSICAL EXAMINATION: VITAL SIGNS: Blood pressure 120/72, pulse in the 90s. GENERAL: He is a chronically ill male, older than appearing. HEENT: Head is atraumatic. Pupils equal, roving to light. Oropharynx is without exudate. Nares clear. NECK: There is no JVP. There is no thyromegaly, no mass. CARDIOVASCULAR: Regular. There is no S3, S4 gallop. LUNGS: Coarse with equal thoracic movement. ABDOMEN: Soft. He does have ascites. EXTREMITIES: Reveal no clubbing, no cyanosis. NEUROLOGIC: He is awake. He is at his baseline. LABORATORY DATA: Hemoglobin 8, hematocrit 24, white cell count 7000. Sodium 141, potassium 3.3, BUN 35, creatinine is 1. IMPRESSION: * Acute renal failure. * Cirrhosis. * Peritonitis. * Anemia. PLAN: The patient's creatinine has greatly improved. The patient remains on the Venofer for the anemia. The patient's workup is ongoing per the primary team. We will continue to follow closely. Once the patient is discharged, the patient can follow up in the [facility]. TID: [id number] RECEIPT: [id number]
--- NOTE | 2024-03-27 13:45 | PN ---
[facility] PROGRESS NOTE Date of Service: Mar 27, 2024 Time of Service: 13:43 SUBJECTIVE: 03/25 Patient has been seen and examined during my rounding earlier this morning, no acute events overnight, currently alert oriented x3, hemodynamically stable, BP 112/71, afebrile, saturating normal on room air, he denies dizziness, no headache, no chest pain, no shortness a breath, nausea, no vomiting, no pain. He looks edematous. at bedside during my visit. 03/26 patient seen at bedside, no acute events overnight. Patient has no complaints at this time. Yesterday he had a thoracentesis with a proximally 2 L drain. The previous day he had a paracentesis which has grown out staph aureus that is methicillin sensitive. He is currently on meropenem, we will follow up with Infectious Disease for possible antibiotic change. He has been afebrile, hemodynamically stable saturating well on room air. WBC improved from 19.0 down to 12.7, hemoglobin decreased from 8.2 down to 7.4, platelets decreased from 103 down to 74, sodium improved from 132 up to 137, creatinine improved from 2.5 down to 1.6, T bili improved from 5.0 down to 3.1, remainder of his labs are relatively unremarkable. 03/27 patient seen at bedside, no acute events overnight. Patient has no complaints at this time. Patient is antibiotic was changed to cefazolin per Infectious Disease. We will coordinate with case management and Infectious Disease regarding long-term antibiotic therapy, whether the patient needs placement or not. PT to evaluate the patient for discharge needs regarding physical activity. REVIEW OF SYSTEMS 12 point review of systems negative unless noted in HPI PHYSICAL EXAM GENERAL APPEARANCE: The patient is awake, alert, and oriented, in no acute cardiopulmonary distress. NEUROLOGICAL: Cranial nerves II-XII grossly intact. Motor is 5/5 in bilateral upper and lower extremities proximal to distal. No sensory deficits. HEENT: Face is symmetric. Pupils are equal and reactive. Extraocular movements are intact. NECK: Supple. No JVD. No thyromegaly. No submental, submandibular, pre- /postauricular, occipital or supraclavicular lymphadenopathy. CHEST: Normal chest expansion. No Telemetry. LUNGS: He has decreased breath sounds on the left side CARDIOVASCULAR: Regular. S1 and S2 normal. No appreciable rubs, murmurs or gallops. ABDOMEN: Soft, generalized mild tenderness, and nondistended. There is no rebound, voluntary guarding, or rigidity. : Deferred. No Rangel. EXTREMITIES: 3+ pitting edema in the lower extremity bilaterally not cyanotic. No clubbing. Good capillary refill. SKIN: No skin breakdown. Vital Signs (last 8hr) Date Time Temp Pulse Resp B/P (MAP) Pulse Ox O2 Delivery O2 Flow Rate FiO2 03/27/24 12:48 99 Room Air* 0 21 03/27/24 11:54 98.8 98 18 123/72 98 Room Air 03/27/24 08:00 97.5 90 18 120/72 96 Room Air 21 LABS: Laboratory: Test 03/27/24 03:43 03/26/24 03:32 03/25/24 14:20 Range/Units White Blood Count 7.6 4.8-10.8 K/uL Red Blood Count 2.89 L 4.50-6.20 MIL/uL Hemoglobin 8.0 L 14.0-18.0 g/dL Hematocrit 24.7 L 42-54 % Mean Corpuscular Volume 85.5 79-99 fL Mean Corpuscular Hemoglobin 27.7 27.0-33.0 pg Mean Corpuscular Hemoglobin Concent 32.4 32.0-36.0 g/dL Red Cell Distribution Width 16.4 H 11.0-15.5 % Platelet Count 76 L 130-400 K/uL Mean Platelet Volume 9.6 7.5-10.5 fL Immature Granulocyte % (Auto) 1.7 H 0-1 % Neutrophils (%) (Auto) 68.8 40.0-77.0 % Lymphocytes (%) (Auto) 10.3 L 21.0-51.0 % Monocytes (%) (Auto) 15.6 H 3.0-13.0 % Eosinophils (%) (Auto) 3.5 0.0-8.0 % Basophils (%) (Auto) 0.1 0.0-5.0 % Neutrophils # (Auto) 5.3 1.8-7.7 K/uL Lymphocytes # (Auto) 0.8 L 1.0-4.8 K/uL Monocytes # (Auto) 1.2 H 0.1-1.0 K/uL Eosinophils # (Auto) 0.27 0.00-0.70 K/uL Basophils # (Auto) 0.01 0.00-0.20 K/uL Absolute Immature Granulocyte (auto 0.13 0-1 K/uL Nucleated Red Blood Cells 0.0 0.0-0.19 % Sodium Level 141 136-145 mmol/L Potassium Level 3.3 L 3.5-5.1 mmol/L Chloride Level 105 101-111 mmol/L Carbon Dioxide Level 32 21-32 mmol/L Blood Urea Nitrogen 35 H 7-18 mg/dL Creatinine 1.1 0.5-1.3 mg/dL Glomerular Filtration Rate Calc 82 >90 mL/min Random Glucose 97 70-105 mg/dL Total Calcium 7.5 L 8.5-10.1 mg/dL Phosphorus Level 3.0 2.5-4.9 mg/dL Magnesium Level 2.10 1.80-2.40 mg/dL Total Bilirubin 2.6 H 0.2-1.0 mg/dL Aspartate Amino Transf (AST/SGOT) 28 10-37 U/L Alanine Aminotransferase (ALT/SGPT) 17 12-78 U/L Alkaline Phosphatase 108 50-136 U/L Total Protein 5.0 L 6.0-8.3 g/dL Albumin 2.1 L 3.5-5.0 g/dL Lactate Dehydrogenase 184 81-234 U/L Body Fluid Source PLEURAL Body Fluid Volume 1500 mL Body Fluid Color ORANGE H LT YELLOW Body Fluid Supernatant Appearance CLOUDY H CLEAR Body Fluid WBC 279 /cu. mm. Body Fluid RBC 78944 /cu. mm. Body Fluid Neutrophils 27.0 % Body Fluid Lymphocytes 28 % Body Fluid Monocytes % 1 % Body Fluid Macrophages (%) 44 Pleural Fluid pH 7 Pleural Fluid Total Protein 2.1 mg/dL Pleural Fluid LDH 82 U/L Pleural Fluid Glucose 129 Current Medications Medications (Trade) Dose Ordered Sig/Dorothy Route PRN Reason Start Time Stop Time Status Last Admin Dose Admin Albumin Human 50 ml @ 25 mls/hr Q8H IV 03/25/24 01:00 03/25/24 18:59 DC 03/25/24 17:36 25 MLS/HR Albumin Human 50 ml @ 25 mls/hr Q8H5 IV 03/24/24 21:00 03/24/24 21:04 DC Cefazolin Sodium (ANCEF 1 gm vial) 1 gm Q8H IVPB 03/27/24 11:30 04/06/24 11:29 Famotidine (Pepcid 20mg Vial) 20 mg Q48H IV 03/24/24 21:00 04/23/24 20:59 03/26/24 22:08 20 MG Furosemide (LASix 20MG VIAL) 20 mg Q12H IV 03/25/24 14:30 04/24/24 14:29 03/27/24 03:31 20 MG Iron Sucrose (VenoFER) 300 mg Q24H IVP 03/25/24 15:00 03/25/24 14:42 DC Iron Sucrose 300 mg/Sodium Chloride 250 ml @ 83 mls/hr Q24H IV 03/25/24 15:00 03/27/24 18:01 03/26/24 18:50 83 MLS/HR Magnesium Sulfate 50 ml @ 0 mls/hr PROTOCOL PRN IV hypomagnesemia 03/24/24 10:00 04/23/24 09:59 Meropenem 1 gm/ Sodium Chloride 100 ml @ 33.333 mls/ hr Q12H IV 03/24/24 07:00 03/24/24 09:37 DC 03/24/24 09:29 33.333 MLS/HR Meropenem 1 gm/ Sodium Chloride 100 ml @ 33.333 mls/ hr Q12H IVPB 03/24/24 21:30 03/27/24 11:08 DC 03/27/24 10:23 33.333 MLS/HR Potassium Chloride 100 ml @ 100 mls/hr AD PRN IV POTASSIUM PROTOCOL 03/24/24 10:00 04/23/24 09:59 Potassium Chloride (K-Dur/Klor-Con 20meq) 20 meq AD PRN PO POTASSIUM PROTOCOL 03/24/24 10:00 04/23/24 09:59 03/27/24 05:24 20 MEQ Potassium Chloride (KCl 10% Elixir 20meq/15ml) 20 meq AD PRN PO POTASSIUM PROTOCOL 03/24/24 10:00 04/23/24 09:59 Thiamine HCl (Vitamin B-1) 100 mg DAILY IVP 03/25/24 09:00 04/24/24 08:59 03/27/24 10:22 100 MG Vitamin B Complex/ Vit C/Folic Acid (Nephrovite Tablet) 1 cap DAILY PO 03/25/24 09:00 04/24/24 08:59 03/27/24 10:22 1 CAP DIAGNOSTICS / RADIOLOGY: [ ] ASSESSMENT: Symptomatic left-sided pleural effusion POA Decompensated liver cirrhosis POA SBP rule out Chest pain likely secondary to coughing Generalized abdominal pain differential SBP versus GI etiology versus ascites Acute kidney injury Volume overload Thrombocytopenia Generalized hives Possible sepsis rule out Normocytic anemia PLAN: - Continue PCCU - Discontinue meropenem per, Start cefazolin, pt growing staph aureus in ascites fluid - Follow up with thoracentesis cultures - In reference to leukocytosis. Patient will continue on meropenem. - Continue furosemide 20mg IV BID - Pt ammonia normal range with normal mental status. Hold lactulose for now - PT to evaluate the patient for dc needs Disposition: Remains admitted to the PCU, patient with decompensated liver cirrhosis, bilateral pleural effusion, follow Pulmonary recommendations, continue antibiotics, continue diuretics. Total PCU time spent greater than 30 minutes. BRIANNE MORENO MD Mar 27, 2024 13:45
[2024-03-27] MEDS: ceFAZolin SODIUM 1 GM VIAL IVPB SCH (14:02)
--- NOTE | 2024-03-27 22:28 | PN ---
INFECTIOUS DISEASE FOLLOWUP NOTE DATE OF SERVICE: SUBJECTIVE: The patient is seen and examined at bedside today. The patient has no fever, no chills. Abdominal pain has resolved. No cough, no shortness of breath. No palpitation or orthopnea. Denies depression. No suicidal ideation. No heat or cold intolerance. No bleeding tendency. No dysuria or hematuria. No rashes or itchiness. PHYSICAL EXAMINATION: VITAL SIGNS: Temperature 97.5. EYES: No icterus. Pupils equal and reactive. HENT: No oral thrush seen. Moist oral mucosa. NECK: Supple, no JVD or thyromegaly. LUNGS: Good air entry. No rales, no rhonchi. CARDIOVASCULAR: S1, S2 regular. No murmur heard. ABDOMEN: Obese, soft. Bowel sound is present. CENTRAL NERVOUS SYSTEM: Awake, alert, oriented x 3. No focal deficits. SKIN: No rashes, no itchiness. LYMPHATIC: No peripheral lymphadenopathy. BACK: No deformity, no pressure ulcer. MUSCULOSKELETAL: No joint swelling, erythema or tenderness. LABORATORY DATA: Ascitic fluid culture growing MSSA. ASSESSMENT: A 49-year-old male admitted with abdominal pain and distention. CURRENT PROBLEMS: Include: * Sepsis. * Spontaneous bacterial peritonitis. * Infection with Staphylococcus aureus. * Liver cirrhosis. * Morbid obesity. * Ascites, status post paracentesis. * Bilateral pleural effusions, status post left thoracentesis. * Anemia. PLAN: * Discontinue meropenem. * Start the patient on cefazolin. * Continue rifaximin. * Continue lactulose. * Continue nutritional support. * Monitor electrolytes and correct as needed. TID: [id number] RECEIPT: [id number]
[2024-03-28] VITALS (7 sets, daily range): BP systolic 124–138; BP diastolic 72–80; PULSE 96–101; RESP 18–20; TEMP 98.4–99.2; O2SAT 96–97
[2024-03-28 04:11] LABS: BASOPHILS # (AUTO) 0.02 K/uL (0.00-0.20); BASOPHILS % (AUTO) 0.2 % (0.0-5.0); EOSINOPHILS # (AUTO) 0.31 K/uL (0.00-0.70); EOSINOPHILS % (AUTO) 3.3 % (0.0-8.0); HEMATOCRIT 25.2 % (42-54); IMMATURE GRANULOCYTE ABSOLUTE 0.41 K/uL (0-1); LYMPHOCYTES # (AUTO) 1.1 K/uL (1.0-4.8); LYMPHOCYTES % (AUTO) 11.3 % (21.0-51.0); MEAN CORPUSCULAR HEMOGLOBIN 27.1 pg (27.0-33.0); MEAN CORPUSCULAR HGB CONC 32.1 g/dL (32.0-36.0); MEAN CORPUSCULAR VOLUME 84.3 fL (79-99); MONOCYTES # (AUTO) 1.8 K/uL (0.1-1.0); MONOCYTES % (AUTO) 18.7 % (3.0-13.0); NEUTROPHILS # (AUTO) 5.8 K/uL (1.8-7.7); NEUTROPHILS % (AUTO) 62.1 % (40.0-77.0); NUCLEATED RED BLOOD CELLS 0.2 % (0.0-0.19); PLATELET COUNT (AUTO) 74 K/uL (130-400); RED BLOOD CELL COUNT(AUTO) 2.99 MIL/uL (4.50-6.20); RED CELL DISTRIBUTION WIDTH 17.2 % (11.0-15.5); WHITE BLOOD COUNT (AUTO) 9.3 K/uL (4.8-10.8)
[2024-03-28 04:28] LABS: ALBUMIN 2.2 g/dL (3.5-5.0); BILIRUBIN,TOTAL 3.5 mg/dL (0.2-1.0); CREATININE 0.8 mg/dL (0.5-1.3); POTASSIUM 3.2 mmol/L (3.5-5.1)
[2024-03-28] MEDS: PoTASSium chl 10% ELIXIR 20MEQ 20 MEQ/15 ML UDCUP PO PRN (05:58)
--- NOTE | 2024-03-28 08:51 | HMCIMG ---
Exam Type: CHEST 1VW Clinical Information: pneum onia Comparison: None Findings: Ill-defined infiltrates of both lungs are seen consistent with bilateral pneumonia. . The heart is normal in size. The bony and soft tissue structures show no worrisome pathology. IMPRESSION: Findings consistent with pneumonia. Follow-up is advised.
--- NOTE | 2024-03-28 09:48 | PN ---
[facility] PROGRESS NOTE Date of Service: Mar 28, 2024 Time of Service: 09:42 SUBJECTIVE: 03/25 Patient has been seen and examined during my rounding earlier this morning, no acute events overnight, currently alert oriented x3, hemodynamically stable, BP 112/71, afebrile, saturating normal on room air, he denies dizziness, no headache, no chest pain, no shortness a breath, nausea, no vomiting, no pain. He looks edematous. at bedside during my visit. 03/26 patient seen at bedside, no acute events overnight. Patient has no complaints at this time. Yesterday he had a thoracentesis with a proximally 2 L drain. The previous day he had a paracentesis which has grown out staph aureus that is methicillin sensitive. He is currently on meropenem, we will follow up with Infectious Disease for possible antibiotic change. He has been afebrile, hemodynamically stable saturating well on room air. WBC improved from 19.0 down to 12.7, hemoglobin decreased from 8.2 down to 7.4, platelets decreased from 103 down to 74, sodium improved from 132 up to 137, creatinine improved from 2.5 down to 1.6, T bili improved from 5.0 down to 3.1, remainder of his labs are relatively unremarkable. 03/27 patient seen at bedside, no acute events overnight. Patient has no complaints at this time. Patient is antibiotic was changed to cefazolin per Infectious Disease. We will coordinate with case management and Infectious Disease regarding long-term antibiotic therapy, whether the patient needs placement or not. PT to evaluate the patient for discharge needs regarding physical activity. 03/28 patient seen at bedside, no acute events overnight. Vitals and labs are stable at this time, pending discharge antibiotic recommendations per Infectious Disease. We will follow up with their recommendations whether the patient needs more inpatient IV antibiotics or if there will be a transition to SNF versus outpatient antibiotics. REVIEW OF SYSTEMS 12 point review of systems negative unless noted in HPI PHYSICAL EXAM GENERAL APPEARANCE: The patient is awake, alert, and oriented, in no acute cardiopulmonary distress. NEUROLOGICAL: Cranial nerves II-XII grossly intact. Motor is 5/5 in bilateral upper and lower extremities proximal to distal. No sensory deficits. HEENT: Face is symmetric. Pupils are equal and reactive. Extraocular movements are intact. NECK: Supple. No JVD. No thyromegaly. No submental, submandibular, pre- /postauricular, occipital or supraclavicular lymphadenopathy. CHEST: Normal chest expansion. No Telemetry. LUNGS: He has decreased breath sounds on the left side CARDIOVASCULAR: Regular. S1 and S2 normal. No appreciable rubs, murmurs or gallops. ABDOMEN: Soft, generalized mild tenderness, and nondistended. There is no rebound, voluntary guarding, or rigidity. : Deferred. No Rangel. EXTREMITIES: 3+ pitting edema in the lower extremity bilaterally not cyanotic. No clubbing. Good capillary refill. SKIN: No skin breakdown. Vital Signs (last 8hr) Date Time Temp Pulse Resp B/P (MAP) Pulse Ox O2 Delivery O2 Flow Rate FiO2 03/28/24 07:17 98.4 99 20 124/80 97 Room Air 03/28/24 04:05 99.1 101 20 133/77 95 Room Air LABS: Laboratory: Test 03/28/24 03:50 03/27/24 03:43 Range/Units White Blood Count 9.3 4.8-10.8 K/uL Red Blood Count 2.99 L 4.50-6.20 MIL/uL Hemoglobin 8.1 L 14.0-18.0 g/dL Hematocrit 25.2 L 42-54 % Mean Corpuscular Volume 84.3 79-99 fL Mean Corpuscular Hemoglobin 27.1 27.0-33.0 pg Mean Corpuscular Hemoglobin Concent 32.1 32.0-36.0 g/dL Red Cell Distribution Width 17.2 H 11.0-15.5 % Platelet Count 74 L 130-400 K/uL Mean Platelet Volume 10.3 7.5-10.5 fL Immature Granulocyte % (Auto) 4.4 H 0-1 % Neutrophils (%) (Auto) 62.1 40.0-77.0 % Lymphocytes (%) (Auto) 11.3 L 21.0-51.0 % Monocytes (%) (Auto) 18.7 H 3.0-13.0 % Eosinophils (%) (Auto) 3.3 0.0-8.0 % Basophils (%) (Auto) 0.2 0.0-5.0 % Neutrophils # (Auto) 5.8 1.8-7.7 K/uL Lymphocytes # (Auto) 1.1 1.0-4.8 K/uL Monocytes # (Auto) 1.8 H 0.1-1.0 K/uL Eosinophils # (Auto) 0.31 0.00-0.70 K/uL Basophils # (Auto) 0.02 0.00-0.20 K/uL Absolute Immature Granulocyte (auto 0.41 0-1 K/uL Nucleated Red Blood Cells 0.2 H 0.0-0.19 % Sodium Level 137 136-145 mmol/L Potassium Level 3.2 L 3.5-5.1 mmol/L Chloride Level 103 101-111 mmol/L Carbon Dioxide Level 30 21-32 mmol/L Blood Urea Nitrogen 25 H 7-18 mg/dL Creatinine 0.8 0.5-1.3 mg/dL Glomerular Filtration Rate Calc 108 >90 mL/min Random Glucose 94 70-105 mg/dL Total Calcium 7.5 L 8.5-10.1 mg/dL Total Bilirubin 3.5 H 0.2-1.0 mg/dL Aspartate Amino Transf (AST/SGOT) 28 10-37 U/L Alanine Aminotransferase (ALT/SGPT) 17 12-78 U/L Alkaline Phosphatase 115 50-136 U/L Total Protein 5.0 L 6.0-8.3 g/dL Albumin 2.2 L 3.5-5.0 g/dL Phosphorus Level 3.0 2.5-4.9 mg/dL Magnesium Level 2.10 1.80-2.40 mg/dL Current Medications Medications (Trade) Dose Ordered Sig/Dorothy Route PRN Reason Start Time Stop Time Status Last Admin Dose Admin Albumin Human 50 ml @ 25 mls/hr Q8H IV 03/25/24 01:00 03/25/24 18:59 DC 03/25/24 17:36 25 MLS/HR Albumin Human 50 ml @ 25 mls/hr Q8H5 IV 03/24/24 21:00 03/24/24 21:04 DC Cefazolin Sodium (ANCEF 1 gm vial) 1 gm Q8H IVPB 03/27/24 11:30 04/06/24 11:29 03/28/24 03:18 1 GM Famotidine (Pepcid 20mg Vial) 20 mg Q48H IV 03/24/24 21:00 04/23/24 20:59 03/26/24 22:08 20 MG Furosemide (LASix 20MG VIAL) 20 mg Q12H IV 03/25/24 14:30 04/24/24 14:29 03/28/24 03:08 20 MG Iron Sucrose (VenoFER) 300 mg Q24H IVP 03/25/24 15:00 03/25/24 14:42 DC Iron Sucrose 300 mg/Sodium Chloride 250 ml @ 83 mls/hr Q24H IV 03/25/24 15:00 03/27/24 18:01 DC 03/27/24 15:14 83 MLS/HR Magnesium Sulfate 50 ml @ 0 mls/hr PROTOCOL PRN IV hypomagnesemia 03/24/24 10:00 04/23/24 09:59 Meropenem 1 gm/ Sodium Chloride 100 ml @ 33.333 mls/ hr Q12H IV 03/24/24 07:00 03/24/24 09:37 DC 03/24/24 09:29 33.333 MLS/HR Meropenem 1 gm/ Sodium Chloride 100 ml @ 33.333 mls/ hr Q12H IVPB 03/24/24 21:30 03/27/24 11:08 DC 03/27/24 10:23 33.333 MLS/HR Potassium Chloride 100 ml @ 100 mls/hr AD PRN IV POTASSIUM PROTOCOL 03/24/24 10:00 04/23/24 09:59 Potassium Chloride (K-Dur/Klor-Con 20meq) 20 meq AD PRN PO POTASSIUM PROTOCOL 03/24/24 10:00 04/23/24 09:59 03/28/24 03:17 20 MEQ Potassium Chloride (KCl 10% Elixir 20meq/15ml) 20 meq AD PRN PO POTASSIUM PROTOCOL 03/24/24 10:00 04/23/24 09:59 03/28/24 05:58 20 MEQ Thiamine HCl (Vitamin B-1) 100 mg DAILY IVP 03/25/24 09:00 04/24/24 08:59 03/27/24 10:22 100 MG Vitamin B Complex/ Vit C/Folic Acid (Nephrovite Tablet) 1 cap DAILY PO 03/25/24 09:00 04/24/24 08:59 03/27/24 10:22 1 CAP DIAGNOSTICS / RADIOLOGY: [ ] ASSESSMENT: Symptomatic left-sided pleural effusion POA Decompensated liver cirrhosis POA Spontaneous bacterial peritonitis, MSSA, POA Chest pain likely secondary to coughing Generalized abdominal pain differential SBP versus GI etiology versus ascites Acute kidney injury, resolved Hypokalemia Volume overload Thrombocytopenia Generalized hives Possible sepsis rule out Normocytic anemia PLAN: - Continue PCCU - Continue cefazolin, pt growing staph aureus in ascites fluid - Continue furosemide 20mg IV BID - Start spironolactone 25mg q24h - Pt ammonia normal range with normal mental status. Hold lactulose for now - PT to evaluate the patient for dc needs - Follow up with ID regarding discharge antibiotics Disposition: Pending ID recommendations for discharge antibiotics Total PCU time spent greater than 30 minutes. BRIANNE MORENO MD Mar 28, 2024 09:48
--- NOTE | 2024-03-28 11:53 | PN ---
SUBJECTIVE: A 49-year-old male with history of cirrhosis, status post paracentesis. The patient was initially admitted with increasing shortness of breath, status post the paracentesis. The patient found to have gram-positive peritonitis and had been on antibiotics. He has had acute renal failure in the hospital. Creatinine has actually stabilized and the patient is being seen as a followup visit for all of the above. REVIEW OF SYSTEMS: GENERAL: He is feeling improved. HEENT: No change in vision. No change in hearing. CARDIOVASCULAR: No current chest pains or palpitations. PULMONARY: No shortness of breath. GASTROINTESTINAL: The patient is tolerating a diet. MUSCULOSKELETAL: Complains of weakness. PHYSICAL EXAMINATION: VITAL SIGNS: Blood pressure 124/80, pulse in the 90s. GENERAL: He is a chronically ill male, older than appearing. HEENT: Head is atraumatic. Pupils equal, roving to light. Oropharynx is without exudate. Nares clear. NECK: There is no JVP. There is no thyromegaly, no mass. CARDIOVASCULAR: Regular. There is no S3, S4 gallop. LUNGS: Coarse with equal thoracic medication. ABDOMEN: Soft, nondistended, nontender. EXTREMITIES: Reveal no clubbing, no cyanosis. NEUROLOGIC: He is awake. He is alert. LABORATORY DATA: Hemoglobin 8.1, hematocrit 25. Sodium 137, potassium 3.2, BUN 25, creatinine 0.8. IMPRESSION: * Acute renal failure. * Electrolyte abnormalities. * Cirrhosis. * Volume overload. PLAN: The patient's creatinine is improved. We will continue to monitor the chemistries closely. The patient's electrolytes have all been aggressively repleted. The patient is being seen by case management for final disposition. We will continue to follow closely. The patient with multiple questions, all of which were answered. TID: [id number] RECEIPT: [id number]
--- NOTE | 2024-03-28 11:56 | PN ---
[facility] PROGRESS NOTE Date Patient Seen: Mar 28, 2024 Time of Visit: 11:56 Supervising Physician: Kevin Marroquin MD Supervising Physician: Dr. Jordy Matson Reason for Consultation Pleural Effusion Primary Care Physician: [ ] Outpatient Specialists: [ ] Inpatient Consults: [ ] PROBLEM LIST: Symptomatic left-sided pleural effusion POA , s/p thoracentesis performed on 03/25/2024, transudative effusion Community-acquired pneumonia, POA Decompensated liver cirrhosis POA MELD Score 28 points POA Suspected Hepatorenal syndrome ruled out Chest pain likely secondary to coughing Staphylococcus aureus SBP, POA Acute kidney injury, resolved Volume overload Thrombocytopenia Generalized hives Possible sepsis rule out Normocytic anemia INTERVAL HISTORY: 03/24 Patient is a 49-year-old male past medical history significant for decompensated liver cirrhosis with recurrent paracentesis required for ascites, BEATRICE likely on CKD, who was admitted to the hospital after experiencing shortness of breath. Patient was found to have ascites on scan, paracentesis was performed with removal of 3 L. Patient also has pleural effusion at this time however the patient's INR is 2.34. Administering 10 mg vitamin K and we will recheck INR in the morning for possible thoracentesis. Upon visiting the patient in the ER following the paracentesis patient is breathing easily, on room air, states that he feels much better after the fluid is removed from the abdominal cavity. We will evaluate the patient in the morning for further interventions if necessary. 03/25 Patient is a 49 year old came with SOB , he has dx of liver cirrhosis with recurrent ascites requiring paracentesis every 2 weeks, he underwent for paracentesis with removal of 3 L that came back positive for spontanous bacterial peritonitis, he is on antibiotic therapy , since he marrero been found with pleural effusion to left plan is for thoracentesis procedure has been explained to patient in detail and he agreed to proceed. 03/26 patient was evaluated at bedside, present at the time of visit. Patient underwent thoracentesis yesterday, procedure was uncomplicated, patient was recovering well. Stated he felt some chest heaviness however this sensation has resolved. Patient's chest x-ray showed no visible pneumothorax. Pleural fluid analysis shows transudative effusion. Patient was cleared for discharge from a pulmonary perspective, we will continue to follow the patient while he remains on the floor. 03/27 patient was evaluated at bedside with present, he is doing well today, remains on room air at this time denies any discomfort or chest pain, patient denies any cough as well. Patient continues on nebulizer treatments, and cefazolin. Chest x-ray from 03/25 shows moderate bilateral pulmonary infiltrates, we will order chest x-ray for tomorrow morning to re-evaluate the patient's progress with the pneumonia diagnosis. Patient's white count today is back within normal limits, 7.6. Hemoglobin stable at 8.0, up from 7.4 yesterday , patient's renal function is back within normal limits today. We will continue to monitor the patient's progress while he is on the floor. 03/28 patient is awake alert and oriented x3. Hemodynamically stable afebrile in no apparent distress saturating 96% on room air. He warts tightening of abdomen generalized discomfort. Abdomen slightly more distended today. We will increase his spironolactone 25 b.i.d. and Lasix 20 mg q.8 hours IV push. [place]. [place] [address] similar to yesterday H&H is stable 8.1/25.2, chemistry markedly improved sodium 137 potassium is 3.2 carbon dioxide was 30 BUN 25 creatinine is well 0.8 GFR 108 BEATRICE resolved. REVIEW OF SYSTEMS: 12 point ROS reviewed with patient. Pertinent positives mentioned above. Otherwise negative. PHYSICAL EXAM: GENERAL: alert, weak, awake oriented x 3 HEENT: EOMI, Sclera non icteric, moist mucosa NECK: Supple, no JVD, trachea midline LUNGS: Decreased breath sounds HEART: Regular rate and rhythm. Normal S1 and S2, without murmurs ABD: Abdomen soft, nontender. Bowel sounds present, Distended abdomen EXT: No clubbing cyanosis or edema NEURO: Alert and oriented to person, follows commands Vital Signs (last 8hr) Date Time Temp Pulse Resp B/P (MAP) Pulse Ox O2 Delivery O2 Flow Rate FiO2 03/28/24 07:17 98.4 99 20 124/80 97 Room Air 03/28/24 04:05 99.1 101 20 133/77 95 Room Air LABS: Hematology Labs: Test 03/28/24 03:50 Range/Units White Blood Count 9.3 4.8-10.8 K/uL Red Blood Count 2.99 L 4.50-6.20 MIL/uL Hemoglobin 8.1 L 14.0-18.0 g/dL Hematocrit 25.2 L 42-54 % Mean Corpuscular Volume 84.3 79-99 fL Mean Corpuscular Hemoglobin 27.1 27.0-33.0 pg Mean Corpuscular Hemoglobin Concent 32.1 32.0-36.0 g/dL Red Cell Distribution Width 17.2 H 11.0-15.5 % Platelet Count 74 L 130-400 K/uL Mean Platelet Volume 10.3 7.5-10.5 fL Immature Granulocyte % (Auto) 4.4 H 0-1 % Neutrophils (%) (Auto) 62.1 40.0-77.0 % Lymphocytes (%) (Auto) 11.3 L 21.0-51.0 % Monocytes (%) (Auto) 18.7 H 3.0-13.0 % Eosinophils (%) (Auto) 3.3 0.0-8.0 % Basophils (%) (Auto) 0.2 0.0-5.0 % Neutrophils # (Auto) 5.8 1.8-7.7 K/uL Lymphocytes # (Auto) 1.1 1.0-4.8 K/uL Monocytes # (Auto) 1.8 H 0.1-1.0 K/uL Eosinophils # (Auto) 0.31 0.00-0.70 K/uL Basophils # (Auto) 0.02 0.00-0.20 K/uL Absolute Immature Granulocyte (auto 0.41 0-1 K/uL Nucleated Red Blood Cells 0.2 H 0.0-0.19 % Chemistry Labs: Test 03/28/24 03:50 03/27/24 03:43 Range/Units Sodium Level 137 136-145 mmol/L Potassium Level 3.2 L 3.5-5.1 mmol/L Chloride Level 103 101-111 mmol/L Carbon Dioxide Level 30 21-32 mmol/L Blood Urea Nitrogen 25 H 7-18 mg/dL Creatinine 0.8 0.5-1.3 mg/dL Glomerular Filtration Rate Calc 108 >90 mL/min Random Glucose 94 70-105 mg/dL Total Calcium 7.5 L 8.5-10.1 mg/dL Total Bilirubin 3.5 H 0.2-1.0 mg/dL Aspartate Amino Transf (AST/SGOT) 28 10-37 U/L Alanine Aminotransferase (ALT/SGPT) 17 12-78 U/L Alkaline Phosphatase 115 50-136 U/L Total Protein 5.0 L 6.0-8.3 g/dL Albumin 2.2 L 3.5-5.0 g/dL Phosphorus Level 3.0 2.5-4.9 mg/dL Magnesium Level 2.10 1.80-2.40 mg/dL DIAGNOSTICS / RADIOLOGY RESULTS: [ ] PLAN : From pulmonary standpoint cleared for discharge. Increase spironolactone 25 mg p.o. b.i.d. Lasix increased to 20 mg IV push q.8 hours. NEURO: Minimize central acting medications as possible. Maintain fall precautions, adequate lighting during the day PULMONARY: Supplemental 02 as needed. Maintain aspiration precautions at all times CARDIOVASCULAR: Follow hemodynamics. Vital signs per facility protocol GI & NUTRITION: Continue with nutritional support. Continue stool softeners and laxatives as needed. KIDNEYS & ELECTROLYTES: Strict monitoring of intake, output and overall fluid balance. Avoid nephrotoxic medications to the extent possible. Medications to be dosed according to renal function. Monitor electrolytes and replace as needed ENDOCRINE: Maintain blood glucose between 100-180 at all times. Hypoglycemia protocol in place INFECTIOUS DISEASE: Trend temperature, WBC and procalcitonin level Follow cultures, deescalate antibiotics as soon as possible. Panculture if new onset fever ONCOLOGY/HEMATOLOGY/COAGULATION: Monitor for s/s of bleeding Monitor hemoglobin, coagulation studies as needed SKIN: Pressure ulcer prevention per facility protocol Specialty mattress ORTHO/REHAB: Continue PT/OT Prophylaxis: Continue GI and DVT prophylaxis Code Status: Full Resuscitation Disposition: TBD Other: Total patient care time exceeds 35 minutes excluding all procedures. [facility] Mar 28, 2024 11:56
[2024-03-28] MEDS: COLCHicine 0.6 MG TABLET PO ONE (12:43)
[2024-03-29] VITALS (8 sets, daily range): BP systolic 118–129; BP diastolic 63–97; PULSE 67–103; RESP 16–18; TEMP 98.8–99.5; O2SAT 94
--- NOTE | 2024-03-29 04:19 | PN ---
DATE OF SERVICE: 03/28/2024 INFECTIOUS DISEASE FOLLOWUP NOTE SUBJECTIVE: The patient is seen and examined at bedside today. The patient has no fever, no chills. No nausea, vomiting. No abdominal pain. No sore throat or rhinorrhea. Denies depression. No suicidal ideation. No heat or cold intolerance. No dysuria. No hematuria. PHYSICAL EXAMINATION: VITAL SIGNS: Temperature 97.5. EYES: No icterus. Pupils are equal and reactive. HENT: No oral thrush seen. Moist oral mucosa. NECK: Supple. No JVD or thyromegaly. LUNGS: Good air entry. No rales. No rhonchi. CARDIOVASCULAR: S1, S2 regular. No murmur heard. ABDOMEN: Full. Soft. Nontender. Bowel sounds are present. CENTRAL NERVOUS SYSTEM: Awake, alert, oriented x 3. No focal deficits. SKIN: No rashes. No itchiness. LYMPHATIC: No peripheral lymphadenopathy. ASSESSMENT: A 49-year-old female presenting with abdominal pain, distention. CURRENT PROBLEMS: Include: * Sepsis. * Spontaneous bacterial peritonitis. * Liver cirrhosis, ascites. * Infection with methicillin-susceptible staphylococcus aureus. * Pleural effusion, status post left thoracentesis. * Anemia. * Morbid obesity. PLAN: * We will continue cefazolin. * Continue lactulose. * Continue ____. * Continue diuretic. * Continue ____. * Monitor electrolytes. * The patient will be followed closely. TID: [id number] RECEIPT: [id number]
[2024-03-29 04:36] LABS: ALBUMIN 2.1 g/dL (3.5-5.0); BILIRUBIN,TOTAL 4.3 mg/dL (0.2-1.0); CREATININE 0.9 mg/dL (0.5-1.3); POTASSIUM 3.9 mmol/L (3.5-5.1); TOTAL PROTEIN, SERUM 4.8 g/dL (6.0-8.3)
[2024-03-29 04:40] LABS: BASOPHILS # (AUTO) 0.03 K/uL (0.00-0.20); BASOPHILS % (AUTO) 0.4 % (0.0-5.0); EOSINOPHILS # (AUTO) 0.37 K/uL (0.00-0.70); EOSINOPHILS % (AUTO) 4.8 % (0.0-8.0); HEMATOCRIT 26.1 % (42-54); IMMATURE GRANULOCYTE ABSOLUTE 0.23 K/uL (0-1); LYMPHOCYTES % (AUTO) 13.3 % (21.0-51.0); MEAN CORPUSCULAR HEMOGLOBIN 28.2 pg (27.0-33.0); MEAN CORPUSCULAR HGB CONC 32.6 g/dL (32.0-36.0); MEAN CORPUSCULAR VOLUME 86.7 fL (79-99); MONOCYTES # (AUTO) 1.4 K/uL (0.1-1.0); MONOCYTES % (AUTO) 18.3 % (3.0-13.0); NEUTROPHILS # (AUTO) 4.6 K/uL (1.8-7.7); NEUTROPHILS % (AUTO) 60.2 % (40.0-77.0); PLATELET COUNT (AUTO) 69 K/uL (130-400); RED BLOOD CELL COUNT(AUTO) 3.01 MIL/uL (4.50-6.20); RED CELL DISTRIBUTION WIDTH 18.1 % (11.0-15.5); WHITE BLOOD COUNT (AUTO) 7.7 K/uL (4.8-10.8)
[2024-03-29] MEDS: furoSEMIDE 20MG VIAL IV SCH (06:15)
[2024-03-29] MEDS ORDERED: SPIRONOLACTONE 25 MG TAB PO SCH (09:00)
[2024-03-29] MEDS: SPIRONOLACTONE 25 MG TAB PO SCH (09:10)
--- NOTE | 2024-03-29 10:21 | PN ---
[facility] PROGRESS NOTE Date of Service: Mar 29, 2024 Time of Service: 10:19 SUBJECTIVE: 03/25 Patient has been seen and examined during my rounding earlier this morning, no acute events overnight, currently alert oriented x3, hemodynamically stable, BP 112/71, afebrile, saturating normal on room air, he denies dizziness, no headache, no chest pain, no shortness a breath, nausea, no vomiting, no pain. He looks edematous. at bedside during my visit. 03/26 patient seen at bedside, no acute events overnight. Patient has no complaints at this time. Yesterday he had a thoracentesis with a proximally 2 L drain. The previous day he had a paracentesis which has grown out staph aureus that is methicillin sensitive. He is currently on meropenem, we will follow up with Infectious Disease for possible antibiotic change. He has been afebrile, hemodynamically stable saturating well on room air. WBC improved from 19.0 down to 12.7, hemoglobin decreased from 8.2 down to 7.4, platelets decreased from 103 down to 74, sodium improved from 132 up to 137, creatinine improved from 2.5 down to 1.6, T bili improved from 5.0 down to 3.1, remainder of his labs are relatively unremarkable. 03/27 patient seen at bedside, no acute events overnight. Patient has no complaints at this time. Patient is antibiotic was changed to cefazolin per Infectious Disease. We will coordinate with case management and Infectious Disease regarding long-term antibiotic therapy, whether the patient needs placement or not. PT to evaluate the patient for discharge needs regarding physical activity. 03/28 patient seen at bedside, no acute events overnight. Vitals and labs are stable at this time, pending discharge antibiotic recommendations per Infectious Disease. We will follow up with their recommendations whether the patient needs more inpatient IV antibiotics or if there will be a transition to SNF versus outpatient antibiotics. 03/29 patient seen at bedside, no acute events overnight. Vitals and labs are stable at this time, pending discharge antibiotic recommendations per Infectious Disease. Continue cefazolin. REVIEW OF SYSTEMS 12 point review of systems negative unless noted in HPI PHYSICAL EXAM GENERAL APPEARANCE: The patient is awake, alert, and oriented, in no acute cardiopulmonary distress. NEUROLOGICAL: Cranial nerves II-XII grossly intact. Motor is 5/5 in bilateral upper and lower extremities proximal to distal. No sensory deficits. HEENT: Face is symmetric. Pupils are equal and reactive. Extraocular movements are intact. NECK: Supple. No JVD. No thyromegaly. No submental, submandibular, pre- /postauricular, occipital or supraclavicular lymphadenopathy. CHEST: Normal chest expansion. No Telemetry. LUNGS: He has decreased breath sounds on the left side CARDIOVASCULAR: Regular. S1 and S2 normal. No appreciable rubs, murmurs or gallops. ABDOMEN: Soft, generalized mild tenderness, and nondistended. There is no rebound, voluntary guarding, or rigidity. : Deferred. No Rangel. EXTREMITIES: 3+ pitting edema in the lower extremity bilaterally not cyanotic. No clubbing. Good capillary refill. SKIN: No skin breakdown. Vital Signs (last 8hr) Date Time Temp Pulse Resp B/P (MAP) Pulse Ox O2 Delivery O2 Flow Rate FiO2 03/29/24 07:50 98.8 99 18 129/70 94 Room Air 03/29/24 04:31 99.0 97 18 127/97 95 Room Air 03/29/24 04:31 127/79 LABS: Laboratory: Test 03/29/24 04:11 03/28/24 03:50 Range/Units White Blood Count 7.7 4.8-10.8 K/uL Red Blood Count 3.01 L 4.50-6.20 MIL/uL Hemoglobin 8.5 L 14.0-18.0 g/dL Hematocrit 26.1 L 42-54 % Mean Corpuscular Volume 86.7 79-99 fL Mean Corpuscular Hemoglobin 28.2 27.0-33.0 pg Mean Corpuscular Hemoglobin Concent 32.6 32.0-36.0 g/dL Red Cell Distribution Width 18.1 H 11.0-15.5 % Platelet Count 69 L 130-400 K/uL Mean Platelet Volume 10.3 7.5-10.5 fL Immature Granulocyte % (Auto) 3.0 H 0-1 % Neutrophils (%) (Auto) 60.2 40.0-77.0 % Lymphocytes (%) (Auto) 13.3 L 21.0-51.0 % Monocytes (%) (Auto) 18.3 H 3.0-13.0 % Eosinophils (%) (Auto) 4.8 0.0-8.0 % Basophils (%) (Auto) 0.4 0.0-5.0 % Neutrophils # (Auto) 4.6 1.8-7.7 K/uL Lymphocytes # (Auto) 1.0 1.0-4.8 K/uL Monocytes # (Auto) 1.4 H 0.1-1.0 K/uL Eosinophils # (Auto) 0.37 0.00-0.70 K/uL Basophils # (Auto) 0.03 0.00-0.20 K/uL Absolute Immature Granulocyte (auto 0.23 0-1 K/uL Nucleated Red Blood Cells 0.0 0.0-0.19 % Sodium Level 142 136-145 mmol/L Potassium Level 3.9 3.5-5.1 mmol/L Chloride Level 107 101-111 mmol/L Carbon Dioxide Level 30 21-32 mmol/L Blood Urea Nitrogen 22 H 7-18 mg/dL Creatinine 0.9 0.5-1.3 mg/dL Glomerular Filtration Rate Calc 105 >90 mL/min Random Glucose 96 70-105 mg/dL Total Calcium 7.1 L 8.5-10.1 mg/dL Total Bilirubin 4.3 H 0.2-1.0 mg/dL Aspartate Amino Transf (AST/SGOT) 34 10-37 U/L Alanine Aminotransferase (ALT/SGPT) 16 12-78 U/L Alkaline Phosphatase 104 50-136 U/L Total Protein 4.8 L 6.0-8.3 g/dL Albumin 2.1 L 3.5-5.0 g/dL Uric Acid 3.9 2.6-7.2 mg/dL Current Medications Medications (Trade) Dose Ordered Sig/Dorothy Route PRN Reason Start Time Stop Time Status Last Admin Dose Admin Albumin Human 50 ml @ 25 mls/hr Q8H IV 03/25/24 01:00 03/25/24 18:59 DC 03/25/24 17:36 25 MLS/HR Albumin Human 50 ml @ 25 mls/hr Q8H5 IV 03/24/24 21:00 03/24/24 21:04 DC Cefazolin Sodium (ANCEF 1 gm vial) 1 gm Q8H IVPB 03/27/24 11:30 04/06/24 11:29 03/29/24 03:49 1 GM Famotidine (Pepcid 20mg Vial) 20 mg Q48H IV 03/24/24 21:00 04/23/24 20:59 03/28/24 19:52 20 MG Furosemide (LASix 20MG VIAL) 20 mg Q12H IV 03/25/24 14:30 03/28/24 22:32 DC 03/28/24 16:29 20 MG Furosemide (LASix 20MG VIAL) 20 mg Q8H IV 03/29/24 06:30 04/24/24 14:29 03/29/24 06:15 20 MG Iron Sucrose (VenoFER) 300 mg Q24H IVP 03/25/24 15:00 03/25/24 14:42 DC Iron Sucrose 300 mg/Sodium Chloride 250 ml @ 83 mls/hr Q24H IV 03/25/24 15:00 03/27/24 18:01 DC 03/27/24 15:14 83 MLS/HR Magnesium Sulfate 50 ml @ 0 mls/hr PROTOCOL PRN IV hypomagnesemia 03/24/24 10:00 04/23/24 09:59 Meropenem 1 gm/ Sodium Chloride 100 ml @ 33.333 mls/ hr Q12H IV 03/24/24 07:00 03/24/24 09:37 DC 03/24/24 09:29 33.333 MLS/HR Meropenem 1 gm/ Sodium Chloride 100 ml @ 33.333 mls/ hr Q12H IVPB 03/24/24 21:30 03/27/24 11:08 DC 03/27/24 10:23 33.333 MLS/HR Potassium Chloride 100 ml @ 100 mls/hr AD PRN IV POTASSIUM PROTOCOL 03/24/24 10:00 04/23/24 09:59 Potassium Chloride (K-Dur/Klor-Con 20meq) 20 meq AD PRN PO POTASSIUM PROTOCOL 03/24/24 10:00 04/23/24 09:59 03/28/24 12:44 20 MEQ Potassium Chloride (KCl 10% Elixir 20meq/15ml) 20 meq AD PRN PO POTASSIUM PROTOCOL 03/24/24 10:00 04/23/24 09:59 03/28/24 05:58 20 MEQ Spironolactone (Aldactone 25mg) 25 mg BID PO 03/29/24 09:00 04/28/24 08:59 03/29/24 09:10 25 MG Spironolactone (Aldactone 25mg) 25 mg DAILY PO 03/29/24 09:00 03/28/24 22:32 DC Thiamine HCl (Vitamin B-1) 100 mg DAILY IVP 03/25/24 09:00 04/24/24 08:59 03/29/24 09:10 100 MG Vitamin B Complex/ Vit C/Folic Acid (Nephrovite Tablet) 1 cap DAILY PO 03/25/24 09:00 04/24/24 08:59 03/29/24 09:10 1 CAP DIAGNOSTICS / RADIOLOGY: [ ] ASSESSMENT: Symptomatic left-sided pleural effusion POA Decompensated liver cirrhosis POA Spontaneous bacterial peritonitis, MSSA, POA Chest pain likely secondary to coughing Generalized abdominal pain differential SBP versus GI etiology versus ascites Acute kidney injury, resolved Hypokalemia Volume overload Thrombocytopenia Generalized hives Possible sepsis rule out Normocytic anemia PLAN: - Continue PCCU - Continue cefazolin, pt growing staph aureus in ascites fluid - Continue furosemide 20mg IV BID - Start spironolactone 25mg q24h - Pt ammonia normal range with normal mental status. Hold lactulose for now - PT to evaluate the patient for dc needs - Follow up with ID regarding discharge antibiotics Disposition: Pending ID recommendations for discharge antibiotics Total PCU time spent greater than 30 minutes. BRIANNE MORENO MD Mar 29, 2024 10:21
--- NOTE | 2024-03-29 11:18 | PN ---
[facility] PROGRESS NOTE Date Patient Seen: Mar 29, 2024 Time of Visit: 11:18 Supervising Physician: Kevin Olsen MD Supervising Physician: Dr. Jordy Matson Reason for Consultation Pleural Effusion Primary Care Physician: [ ] Outpatient Specialists: [ ] Inpatient Consults: [ ] PROBLEM LIST: Symptomatic left-sided pleural effusion POA , s/p thoracentesis performed on 03/25/2024, transudative effusion Community-acquired pneumonia, POA Decompensated liver cirrhosis POA MELD Score 28 points POA Suspected Hepatorenal syndrome ruled out Chest pain likely secondary to coughing Staphylococcus aureus SBP, POA Acute kidney injury, resolved Volume overload Thrombocytopenia Generalized hives Possible sepsis rule out Normocytic anemia INTERVAL HISTORY: 03/24 Patient is a 49-year-old male past medical history significant for decompensated liver cirrhosis with recurrent paracentesis required for ascites, BEATRICE likely on CKD, who was admitted to the hospital after experiencing shortness of breath. Patient was found to have ascites on scan, paracentesis was performed with removal of 3 L. Patient also has pleural effusion at this time however the patient's INR is 2.34. Administering 10 mg vitamin K and we will recheck INR in the morning for possible thoracentesis. Upon visiting the patient in the ER following the paracentesis patient is breathing easily, on room air, states that he feels much better after the fluid is removed from the abdominal cavity. We will evaluate the patient in the morning for further interventions if necessary. 03/25 Patient is a 49 year old came with SOB , he has dx of liver cirrhosis with recurrent ascites requiring paracentesis every 2 weeks, he underwent for paracentesis with removal of 3 L that came back positive for spontanous bacterial peritonitis, he is on antibiotic therapy , since he marrero been found with pleural effusion to left plan is for thoracentesis procedure has been explained to patient in detail and he agreed to proceed. 03/26 patient was evaluated at bedside, present at the time of visit. Patient underwent thoracentesis yesterday, procedure was uncomplicated, patient was recovering well. Stated he felt some chest heaviness however this sensation has resolved. Patient's chest x-ray showed no visible pneumothorax. Pleural fluid analysis shows transudative effusion. Patient was cleared for discharge from a pulmonary perspective, we will continue to follow the patient while he remains on the floor. 03/27 patient was evaluated at bedside with present, he is doing well today, remains on room air at this time denies any discomfort or chest pain, patient denies any cough as well. Patient continues on nebulizer treatments, and cefazolin. Chest x-ray from 03/25 shows moderate bilateral pulmonary infiltrates, we will order chest x-ray for tomorrow morning to re-evaluate the patient's progress with the pneumonia diagnosis. Patient's white count today is back within normal limits, 7.6. Hemoglobin stable at 8.0, up from 7.4 yesterday , patient's renal function is back within normal limits today. We will continue to monitor the patient's progress while he is on the floor. 03/28 patient is awake alert and oriented x3. Hemodynamically stable afebrile in no apparent distress saturating 96% on room air. He warts tightening of abdomen generalized discomfort. Abdomen slightly more distended today. We will increase his spironolactone 25 b.i.d. and Lasix 20 mg q.8 hours IV push. [place]. [place] [address] similar to yesterday H&H is stable 8.1/25.2, chemistry markedly improved sodium 137 potassium is 3.2 carbon dioxide was 30 BUN 25 creatinine is well 0.8 GFR 108 BEATRICE resolved. 03/29-patient is awake alert and oriented x3. He denies any shortness of breath palpitation or chest pain continues to reports burning to generalized abdomen consistent with his SBP infection. He continues on diuretics with Lasix and spironolactone laboratory unremarkable. Patient in no apparent distress at room air. From pulmonary standpoint patient is stable at this time. We will sign off. Patient will need to follow-up with pulmonary service of choice 2 weeks postdischarge. Please reach to us should the need arise. On behalf of [facility] we are thankful for your team to let us participate in the care of this patient. We will be available if assistance in pulmonary critical care needed. REVIEW OF SYSTEMS: 12 point ROS reviewed with patient. Pertinent positives mentioned above. Otherwise negative. PHYSICAL EXAM: GENERAL: alert, weak, awake oriented x 3 HEENT: EOMI, Sclera non icteric, moist mucosa NECK: Supple, no JVD, trachea midline LUNGS: Decreased breath sounds HEART: Regular rate and rhythm. Normal S1 and S2, without murmurs ABD: Abdomen soft, nontender. Bowel sounds present, Distended abdomen EXT: No clubbing cyanosis or edema NEURO: Alert and oriented to person, follows commands Vital Signs (last 8hr) Date Time Temp Pulse Resp B/P (MAP) Pulse Ox O2 Delivery O2 Flow Rate FiO2 03/29/24 08:00 94 Room Air* 0 21 03/29/24 07:50 98.8 99 18 129/70 94 Room Air 03/29/24 04:31 99.0 97 18 127/97 95 Room Air 03/29/24 04:31 127/79 LABS: Hematology Labs: Test 03/29/24 04:11 Range/Units White Blood Count 7.7 4.8-10.8 K/uL Red Blood Count 3.01 L 4.50-6.20 MIL/uL Hemoglobin 8.5 L 14.0-18.0 g/dL Hematocrit 26.1 L 42-54 % Mean Corpuscular Volume 86.7 79-99 fL Mean Corpuscular Hemoglobin 28.2 27.0-33.0 pg Mean Corpuscular Hemoglobin Concent 32.6 32.0-36.0 g/dL Red Cell Distribution Width 18.1 H 11.0-15.5 % Platelet Count 69 L 130-400 K/uL Mean Platelet Volume 10.3 7.5-10.5 fL Immature Granulocyte % (Auto) 3.0 H 0-1 % Neutrophils (%) (Auto) 60.2 40.0-77.0 % Lymphocytes (%) (Auto) 13.3 L 21.0-51.0 % Monocytes (%) (Auto) 18.3 H 3.0-13.0 % Eosinophils (%) (Auto) 4.8 0.0-8.0 % Basophils (%) (Auto) 0.4 0.0-5.0 % Neutrophils # (Auto) 4.6 1.8-7.7 K/uL Lymphocytes # (Auto) 1.0 1.0-4.8 K/uL Monocytes # (Auto) 1.4 H 0.1-1.0 K/uL Eosinophils # (Auto) 0.37 0.00-0.70 K/uL Basophils # (Auto) 0.03 0.00-0.20 K/uL Absolute Immature Granulocyte (auto 0.23 0-1 K/uL Nucleated Red Blood Cells 0.0 0.0-0.19 % Chemistry Labs: Test 03/29/24 04:11 03/28/24 03:50 Range/Units Sodium Level 142 136-145 mmol/L Potassium Level 3.9 3.5-5.1 mmol/L Chloride Level 107 101-111 mmol/L Carbon Dioxide Level 30 21-32 mmol/L Blood Urea Nitrogen 22 H 7-18 mg/dL Creatinine 0.9 0.5-1.3 mg/dL Glomerular Filtration Rate Calc 105 >90 mL/min Random Glucose 96 70-105 mg/dL Total Calcium 7.1 L 8.5-10.1 mg/dL Total Bilirubin 4.3 H 0.2-1.0 mg/dL Aspartate Amino Transf (AST/SGOT) 34 10-37 U/L Alanine Aminotransferase (ALT/SGPT) 16 12-78 U/L Alkaline Phosphatase 104 50-136 U/L Total Protein 4.8 L 6.0-8.3 g/dL Albumin 2.1 L 3.5-5.0 g/dL Uric Acid 3.9 2.6-7.2 mg/dL DIAGNOSTICS / RADIOLOGY RESULTS: [ ] PLAN : From pulmonary standpoint cleared Increase spironolactone 25 mg p.o. b.i.d. Lasix increased to 20 mg IV push q.8 hours. NEURO: Minimize central acting medications as possible. Maintain fall precautions, adequate lighting during the day PULMONARY: Supplemental 02 as needed. Maintain aspiration precautions at all times CARDIOVASCULAR: Follow hemodynamics. Vital signs per facility protocol GI & NUTRITION: Continue with nutritional support. Continue stool softeners and laxatives as needed. KIDNEYS & ELECTROLYTES: Strict monitoring of intake, output and overall fluid balance. Avoid nephrotoxic medications to the extent possible. Medications to be dosed according to renal function. Monitor electrolytes and replace as needed ENDOCRINE: Maintain blood glucose between 100-180 at all times. Hypoglycemia protocol in place INFECTIOUS DISEASE: Trend temperature, WBC and procalcitonin level Follow cultures, deescalate antibiotics as soon as possible. Panculture if new onset fever ONCOLOGY/HEMATOLOGY/COAGULATION: Monitor for s/s of bleeding Monitor hemoglobin, coagulation studies as needed SKIN: Pressure ulcer prevention per facility protocol Specialty mattress ORTHO/REHAB: Continue PT/OT Prophylaxis: Continue GI and DVT prophylaxis Code Status: Full Resuscitation Disposition: TBD Other: Total patient care time exceeds 35 minutes excluding all procedures. ALEXANDRA,[facility] Mar 29, 2024 11:18
--- NOTE | 2024-03-29 12:33 | PN ---
NEPHROLOGY PROGRESS NOTE Date/Time Patient Seen: Mar 29, 2024 Reason for Consultation: 12:32 SUBJECTIVE: This is a 49-year-old male with a past medical history of alcoholic liver cirrhosis with the current paracentesis. He presented to the emergency with complaints of shortness of breath, cough and phlegm. S/p paracentesis with 1 L removed He did receive Albumin Chest x-ray showed left-sided pleural effusion. S/p paracentesis with1 L removed Ascites fluid was growing Staphylococcus aureus He continues on antibiotics as per ID He was noted with elevated BUN/creatinine. We are consulted for renal failure. Renal function and electrolytes are stable. Hemoglobin is stable He was seen in the medical floor, in no acute distress He is complaining of some abdominal pain, distention No family at the bedside Prognosis remains guarded REVIEW OF SYSTEMS: GENERAL: Positive for generalized weakness NEUROLOGIC: Negative for any blurry vision, blind spots, double vision, facial asymmetry, dysphagia, dysarthria, hemiparesis, hemisensory deficits, vertigo, ataxia. HEENT: Negative for any head trauma, neck trauma, neck stiffness, photophobia, phonophobia, sinusitis, rhinitis. CARDIAC: Negative for any chest pain, dyspnea on exertion, paroxysmal nocturnal dyspnea, peripheral edema. PULMONARY: Negative for any shortness of breath, wheezing, COPD, or TB exposure. GASTROINTESTINAL: Negative for any abdominal pain, nausea, vomiting, bright red blood per rectum, melena. GENITOURINARY: Negative for any dysuria, hematuria, incontinence. INTEGUMENTARY: Negative for any rashes, cuts, insect bites. RHEUMATOLOGIC: Negative for any joint pains, photosensitive rashes, history of vasculitis or kidney problems. HEMATOLOGIC: Negative for any abnormal bruising, frequent infections or bleeding. PHYSICAL EXAM: GENERAL: Alert and oriented x 3. No acute distress. Well-nourished. EYES: EOMI. Anicteric. HENT: Moist mucous membranes. No scleral icterus. No cervical lymphadenopathy. LUNGS: Clear to auscultation bilaterally. No accessory muscle use. CARDIOVASCULAR: Regular rate and rhythm. No murmur. No JVD. ABDOMEN: Soft, non-tender and non-distended. No palpable masses. EXTREMITIES: No edema. Non-tender. SKIN: No rashes or lesions. Warm. NEUROLOGIC: No focal neurological deficits. CN II-XII grossly intact, but not individually tested. PSYCHIATRIC: Cooperative. Appropriate mood and affect. LABORATORY: [ ] Hematology Labs: Test 03/29/24 04:11 Range/Units White Blood Count 7.7 4.8-10.8 K/uL Red Blood Count 3.01 L 4.50-6.20 MIL/uL Hemoglobin 8.5 L 14.0-18.0 g/dL Hematocrit 26.1 L 42-54 % Mean Corpuscular Volume 86.7 79-99 fL Mean Corpuscular Hemoglobin 28.2 27.0-33.0 pg Mean Corpuscular Hemoglobin Concent 32.6 32.0-36.0 g/dL Red Cell Distribution Width 18.1 H 11.0-15.5 % Platelet Count 69 L 130-400 K/uL Mean Platelet Volume 10.3 7.5-10.5 fL Immature Granulocyte % (Auto) 3.0 H 0-1 % Neutrophils (%) (Auto) 60.2 40.0-77.0 % Lymphocytes (%) (Auto) 13.3 L 21.0-51.0 % Monocytes (%) (Auto) 18.3 H 3.0-13.0 % Eosinophils (%) (Auto) 4.8 0.0-8.0 % Basophils (%) (Auto) 0.4 0.0-5.0 % Neutrophils # (Auto) 4.6 1.8-7.7 K/uL Lymphocytes # (Auto) 1.0 1.0-4.8 K/uL Monocytes # (Auto) 1.4 H 0.1-1.0 K/uL Eosinophils # (Auto) 0.37 0.00-0.70 K/uL Basophils # (Auto) 0.03 0.00-0.20 K/uL Absolute Immature Granulocyte (auto 0.23 0-1 K/uL Nucleated Red Blood Cells 0.0 0.0-0.19 % Chemistry Labs: Test 03/29/24 04:11 03/28/24 03:50 Range/Units Sodium Level 142 136-145 mmol/L Potassium Level 3.9 3.5-5.1 mmol/L Chloride Level 107 101-111 mmol/L Carbon Dioxide Level 30 21-32 mmol/L Blood Urea Nitrogen 22 H 7-18 mg/dL Creatinine 0.9 0.5-1.3 mg/dL Glomerular Filtration Rate Calc 105 >90 mL/min Random Glucose 96 70-105 mg/dL Total Calcium 7.1 L 8.5-10.1 mg/dL Total Bilirubin 4.3 H 0.2-1.0 mg/dL Aspartate Amino Transf (AST/SGOT) 34 10-37 U/L Alanine Aminotransferase (ALT/SGPT) 16 12-78 U/L Alkaline Phosphatase 104 50-136 U/L Total Protein 4.8 L 6.0-8.3 g/dL Albumin 2.1 L 3.5-5.0 g/dL Uric Acid 3.9 2.6-7.2 mg/dL DIAGNOSTICS / RADIOLOGY: REASON: pneum onia ORDERING PHYSICIAN: CHULA BARR PROCEDURE: CXR1VW - CHEST 1VW Exam Type: CHEST 1VW Clinical Information: pneum onia Comparison: None Findings: Ill-defined infiltrates of both lungs are seen consistent with bilateral pneumonia. . The heart is normal in size. The bony and soft tissue structures show no worrisome pathology. IMPRESSION: Findings consistent with pneumonia. Follow-up is advised. DICTATED BY: ELAINE SPENCER MD DATE: 03/28/24 0848 REASON: s/p thoracentesis to left ORDERING PHYSICIAN: KERMIT ALEXANDRA PROCEDURE: CXR1VW - CHEST 1VW CHEST 1VW HISTORY: Left thoracentesis COMPARISON: None FINDINGS: A frontal projection of the chest was obtained. Mild bilateral pulmonary infiltrates are seen may be related to mild pulmonary vascular congestion with possible superimposed pneumonitis. No pneumothorax is seen. The heart is borderline enlarged. Degenerative changes are seen. No evidence of aortic calcification is seen. IMPRESSION: 1. Mild bilateral pulmonary infiltrates are seen may be related to mild pulmonary vascular congestion with possible superimposed pneumonitis. No pneumothorax. DICTATED BY: ERIN SIBLEY MD DATE: 03/25/24 1515 REASON: PNEUMONIA ORDERING PHYSICIAN: RAMYA COY MD PROCEDURE: CHEST WO - CT CHEST W/O CONTRAST CT CHEST W/O CONTRAST HISTORY: Shortness of breath COMPARISON: None TECHNIQUE: Multiple sequential axial images of the chest were obtained from the thoracic inlet through upper abdomen. Patient was not given contrast through intravenous route. FINDINGS: There is no evidence of pulmonary nodule or parenchymal disease. There are bilateral pleural effusion with left more than right with subsegmental atelectasis. There is no evidence of pneumothorax. There are normal size mediastinal and hilar lymph nodes. The heart is not enlarged. Degenerative changes of the thoracolumbar spine are present. There is no evidence of adrenal nodule. IMPRESSION: 1. Bilateral pleural effusions with left more than right. CT was performed with one or more following dose reduction techniques: automated exposure control, adjustment of the mA and kv according to patient's size, or use of a iterative reconstruction technique. DICTATED BY: ERIN SIBLEY MD DATE: 03/24/24 152 REASON: ASCITES, SBP ORDERING PHYSICIAN: SKYLAR HUFF MD PROCEDURE: PARA ABD - US ABDOMINAL PARACENTESIS IR US ABDOMINAL PARACENTESIS IR HISTORY: Ascites COMPARISON: None TECHNIQUE: Informed consent was obtained. Risks and benefits were explained to the patient. A timeout was performed. Patient was prepped and draped in a sterile fashion. Local anesthetics was given as required. Under ultrasound guidance, ascites fluid was localized. Paracentesis was performed. FINDINGS: 1 L of yellowish fluid was aspirated. Less than 2 cc blood loss is noted. Patient tolerated procedure without complication. Patient left the department in good condition. IMPRESSION: 1. Uncomplicated ultrasound guidance paracentesis. DICTATED BY: ERIN SIBLEY MD DATE: 03/24/24 152 REASON: chest pain ORDERING PHYSICIAN: SKYLAR HUFF MD PROCEDURE: ECHO CMP - ECHO 2-D COMPLETE APPROVED REPORT EXAM: Two-dimensional and M-mode echocardiogram with Doppler and color Doppler. INDICATION ICD: Chest Pain 2D Dimensions RVDd 3.8 cm LVEF(%) 61.3 (>50%) LVED Vol(simp.) 99.0 mL IVSd 1.1 (0.7-1.1cm) FS(%) 33 % LVES Vol(simp.) 47.0 mL LVDd 4.3 (3.8-5.6cm) LA (2D) 3.6 (1.6-4.0cm) LVEF(%, simp.) 53 % PWd 1.2 (0.7-1.1cm) Ao Root(2D) 3.4 (2.0-3.7cm) LA ESV INDEX (4CH) 14.30 mL/m2 IVSs 1.2 cm LVOT diam 2.4 (1.8-2.4cm) LVDs 2.9 (2.5-4.0cm) IVC diam 1.4 cm PWs 1.5 cm M-Mode Dimensions EPSS 0.7 cm LA (MM) 4.7 (1.6-4.0cm) Ao Root(MM) 3.3 (2.0-3.7cm) Aortic Valve AoV VTI 0.2 m Ao Mean GR 5.0 mmHg LVOT VTI 0.14 m CLARA (VMAX) 2.7 cm2 CLARA (VTI) 2.7 cm2 Mitral Valve MV E Vmax 76.0 cm/s DECEL Time 116 ms MV A Vmax 85.4 cm/s P 1/2 T 35 ms E/A ratio 0.9 MVA (PHT) 6.3 cm2 TDI E/E' Medial 9.7 E/E' Lateral 5.7 Medial E' Peak V 7.80 cm/s Lateral E' Peak V 13.30 cm/s Pulmonary Valve PV VTI 0.21 m PV Mean GR 4 mmHg Left Ventricle The left ventricle is normal size. There is normal LV segmental wall motion. There is normal left ventricular wall thickness. LVEF is 50-55%. The left ventricular diastolic function is normal. Right Ventricle The right ventricle is normal size. The right ventricular systolic function is normal. Atria The left atrium size is normal. The right atrium size is normal. Aortic Valve The aortic valve is normal in structure. No aortic regurgitation is present. There is no aortic valvular stenosis. Mitral Valve The mitral valve is normal in structure. There is no mitral valve regurgitation noted. There is no mitral valve stenosis. Tricuspid Valve The tricuspid valve is normal in structure. There is no tricuspid valve regurgitation noted. Pulmonic Valve The pulmonary valve is normal in structure. There is no pulmonic valvular regurgitation. Great Vessels The aortic root is normal in size. The IVC is normal in size and collapses >50% with inspiration. Pericardium There is no pericardial effusion. Other Information Quality : Good Rhythm : NSR Conclusion LVEF is 50-55%. The left ventricular diastolic function is normal. No significant valvular abnormalities. DICTATED BY: JYOTHI BORRERO DO DATE: 03/24/24 1241 REASON: generalized abdominal pain, cirrhosis ORDERING PHYSICIAN: SKYLAR HUFF MD PROCEDURE: ABD PEL WO - CT ABDOMEN/PELVIS W/O CONTRAST CT ABDOMEN/PELVIS W/O CONTRAST HISTORY: Abdominal pain COMPARISON: 10/09/2023 TECHNIQUE: Multiple sequential axial images of the abdomen and pelvis were obtained from the dome of the diaphragm through symphysis pubis. Patient was not given contrast through intravenous route. Oral contrast was not given. FINDINGS: There are bilateral pleural effusions with compressive atelectasis with left more than right. There is no evidence of parenchymal disease or pulmonary nodule of the visualized lower lungs. Degenerative changes of the thoracolumbar spine are present. The heart is not enlarged. Liver measures 15 cm. The spleen is enlarged measuring 16 cm. There are abdominal varices. There is anasarca. The liver, spleen, adrenal glands and pancreas are unremarkable. There is no evidence of hydronephrosis bilaterally. No evidence of renal stone is seen. Fecal material is seen in the colon. There are normal size retroperitoneal and mesenteric lymph nodes. There is small ascites. Atherosclerotic changes are present. Pelvic sidewalls are symmetric bilaterally. Bladder is well distended without wall thickening. IMPRESSION: 1. Cirrhotic liver with enlarged spleen and abdominal varices and small ascites. Bilateral pleural effusions with left more than right with compressive atelectasis. This was seen on previous study. CT was performed with one or more following dose reduction techniques: automated exposure control, adjustment of the mA and kv according to patient's size, or use of a iterative reconstruction technique. DICTATED BY: ERIN SIBLEY MD DATE: 03/24/24 1017 REASON: CHEST PAIN ORDERING PHYSICIAN: SHAHID GAVIN MD PROCEDURE: CXR1VW - CHEST 1VW CHEST 1VW HISTORY: Chest pain COMPARISON: 12/27/2023 FINDINGS: A frontal projection of the chest was obtained. Mild left lung pulmonary infiltrates are seen with small left pleural effusion. Mild congestive changes are seen. The heart is normal in size. Degenerative changes are seen. No evidence of aortic calcification is seen. IMPRESSION: 1. Mild left lung pulmonary infiltrates are seen with small left pleural effusion. Mild congestive changes are seen. DICTATED BY: ERIN SIBLEY MD DATE: 03/24/24 0646 ASSESSMENT: Acute kidney injury Volume overload Symptomatic left-sided pleural effusion Decompensated liver cirrhosis SBP rule out Chest pain Generalized abdominal pain differential SBP versus GI etiology versus ascites Thrombocytopenia Generalized hives Possible sepsis rule out Normocytic anemia PLAN: Labs, diagnostic, radiologic exams reviewed and interpreted by myself and supervising physician. We have reviewed external records in detail Patient may have hepatorenal syndrome patient condition is critical Continue with antibiotics as per ID Please renally adjust medications Require close monitoring of renal function and electrolytes Order CBC, CMP, and electrolytes in am Continue with antibiotics Renal diabetic diet BiPAP as necessary, for respiratory distress Monitor blood pressure adjust medication doses as needed Avoid hypotensive episodes May use Dilaudid 0.5 mg IV every 6 hours as needed for severe pain Monitor blood sugars Strict intake, output, and daily weight should be monitored Please renally adjust medications Avoid nephrotoxic and nonsteroidal drugs Avoid contrast if possible Will continue to monitor renal function, anemia, electrolytes Treatment plan discussed with patient Questions were answered We have discussed with the other team physicians in detail about the care plan We will continue to monitor the patient closely ATTESTATION BY PHYSICIAN I have seen and examined the patient. I reviewed the documentation, medical decision making, and treatment plan as noted by the mid-level provider above. I agree with the findings and plan of care. KASHIF ADKINS MD, [facility] Mar 29, 2024 12:33
--- NOTE | 2024-03-29 14:52 | PN ---
INFECTIOUS DISEASE PROGRESS NOTE Date of Service: Mar 29, 2024 SUBJECTIVE: This is a 49-year-old male patient who was seen and examined at bedside in room 227. Patient is awake, alert and oriented x 3. Patient voicing pain to the mid abdominal area. Abdomen is large. Last paracentesis was 03/24/2024. Patient may need to be re-evaluated for paracentesis. No dyspnea observe at this time. Culture from the ascites came back positive for Staphylococcus aureus. Patient continues on cefazolin IV every 8 hours. Patient is afebrile, temperature is 9 8.8 and a WBC of 7.7. Continues thrombocytopenic with platelet level of 69. We will continue to monitor patient. PHYSICAL EXAM EYES: Anicteric. Pupils equal and reactive. HENT: No oral thrush seen, moist Oral mucosa NECK: Supple, no JVD or thyromegaly. LUNGS: Good air entry. No rales, no rhonchi. CARDIOVASCULAR: S1, S2 regular. No murmur heard. ABDOMEN: Soft, non tender, bowel sounds present, no organomegaly CENTRAL NERVOUS SYSTEM: Awake, alert, oriented x 3. No focal deficits. SKIN: No rashes, no swelling. LYMPHATICS: No peripheral lymphadenopathy MUSCULOSKELETAL: No joint swelling, erythema or tenderness. EXTREMITIES: No cyanosis or clubbing BACK: No deformity, no pressure ulcer. GENITOURINARY: No dysuria or hematuria Vital Sign (Last 12 Hours) 03/29/24 03/29/24 03/29/24 03/29/24 04:31 04:31 07:50 08:00 Temp 99.0 98.8 Pulse 97 99 Resp 18 18 B/P (MAP) 127/79 127/97 129/70 Pulse Ox 95 94 94 O2 Delivery Room Air Room Air Room Air* O2 Flow Rate 0 FiO2 21 03/29/24 11:45 Temp 99.0 Pulse 91 Resp 18 B/P (MAP) 118/77 Pulse Ox 97 Intake & Output (last 24hrs)0 03/28/24 03/28/24 03/29/24 15:00 23:00 07:00 Intake Total 480 ml 340.0 ml 50.0 ml Output Total 175 ml 1450 ml Balance 480 ml 165.0 ml -1400.0 ml LABS: Laboratory: Test 03/29/24 04:11 03/28/24 03:50 Range/Units White Blood Count 7.7 4.8-10.8 K/uL Red Blood Count 3.01 L 4.50-6.20 MIL/uL Hemoglobin 8.5 L 14.0-18.0 g/dL Hematocrit 26.1 L 42-54 % Mean Corpuscular Volume 86.7 79-99 fL Mean Corpuscular Hemoglobin 28.2 27.0-33.0 pg Mean Corpuscular Hemoglobin Concent 32.6 32.0-36.0 g/dL Red Cell Distribution Width 18.1 H 11.0-15.5 % Platelet Count 69 L 130-400 K/uL Mean Platelet Volume 10.3 7.5-10.5 fL Immature Granulocyte % (Auto) 3.0 H 0-1 % Neutrophils (%) (Auto) 60.2 40.0-77.0 % Lymphocytes (%) (Auto) 13.3 L 21.0-51.0 % Monocytes (%) (Auto) 18.3 H 3.0-13.0 % Eosinophils (%) (Auto) 4.8 0.0-8.0 % Basophils (%) (Auto) 0.4 0.0-5.0 % Neutrophils # (Auto) 4.6 1.8-7.7 K/uL Lymphocytes # (Auto) 1.0 1.0-4.8 K/uL Monocytes # (Auto) 1.4 H 0.1-1.0 K/uL Eosinophils # (Auto) 0.37 0.00-0.70 K/uL Basophils # (Auto) 0.03 0.00-0.20 K/uL Absolute Immature Granulocyte (auto 0.23 0-1 K/uL Nucleated Red Blood Cells 0.0 0.0-0.19 % Sodium Level 142 136-145 mmol/L Potassium Level 3.9 3.5-5.1 mmol/L Chloride Level 107 101-111 mmol/L Carbon Dioxide Level 30 21-32 mmol/L Blood Urea Nitrogen 22 H 7-18 mg/dL Creatinine 0.9 0.5-1.3 mg/dL Glomerular Filtration Rate Calc 105 >90 mL/min Random Glucose 96 70-105 mg/dL Total Calcium 7.1 L 8.5-10.1 mg/dL Total Bilirubin 4.3 H 0.2-1.0 mg/dL Aspartate Amino Transf (AST/SGOT) 34 10-37 U/L Alanine Aminotransferase (ALT/SGPT) 16 12-78 U/L Alkaline Phosphatase 104 50-136 U/L Total Protein 4.8 L 6.0-8.3 g/dL Albumin 2.1 L 3.5-5.0 g/dL Uric Acid 3.9 2.6-7.2 mg/dL ASSESSMENT: Spontaneous bacterial peritonitis. Sepsis. Leukocytosis. Ascites s/p paracentesis with 1 L removed on 03/24/2024.. Bilateral pleural effusions, status post left thoracentesis with2 L removed. Renal failure. PLAN: Continues with meropenem. Continue GI prophylaxis. Continue diuretics. Continue current management. We will monitor electrolytes. This case was reviewed and discussed with my supervising physician and the above assessment and plan was formulated and agreed upon. ATTESTATION BY PHYSICIAN I have seen and examined the patient. I reviewed the documentation, medical decision making, and treatment plan as noted by the mid-level provider above. I agree with the findings and plan of care. RAMYA COY MD, [facility] Mar 29, 2024 14:52
[2024-03-30 03:21] VITALS: BP 131/78; PULSE 96; RESP 16; TEMP 99.4
[2024-03-30 04:02] LABS: MEAN CORPUSCULAR HGB CONC 32.4 g/dL (32.0-36.0); MEAN CORPUSCULAR VOLUME 86.5 fL (79-99); RED BLOOD CELL COUNT(AUTO) 2.89 MIL/uL (4.50-6.20); RED CELL DISTRIBUTION WIDTH 18.7 % (11.0-15.5); WHITE BLOOD COUNT (AUTO) 8.7 K/uL (4.8-10.8)
[2024-03-30 04:14] LABS: CREATININE 0.8 mg/dL (0.5-1.3); MAGNESIUM 1.9 mg/dL (1.80-2.40); PHOSPHORUS 2.9 mg/dL (2.5-4.9); POTASSIUM 3.3 mmol/L (3.5-5.1)
[2024-03-30 07:00] VITALS: BP 127/70; PULSE 98; RESP 20; TEMP 99.1
[2024-03-30 08:00] VITALS: O2SAT 96
--- NOTE | 2024-03-30 10:44 | PN ---
[facility] PROGRESS NOTE Date of Service: Mar 30, 2024 Time of Service: 10:43 SUBJECTIVE: 03/25 Patient has been seen and examined during my rounding earlier this morning, no acute events overnight, currently alert oriented x3, hemodynamically stable, BP 112/71, afebrile, saturating normal on room air, he denies dizziness, no headache, no chest pain, no shortness a breath, nausea, no vomiting, no pain. He looks edematous. at bedside during my visit. 03/26 patient seen at bedside, no acute events overnight. Patient has no complaints at this time. Yesterday he had a thoracentesis with a proximally 2 L drain. The previous day he had a paracentesis which has grown out staph aureus that is methicillin sensitive. He is currently on meropenem, we will follow up with Infectious Disease for possible antibiotic change. He has been afebrile, hemodynamically stable saturating well on room air. WBC improved from 19.0 down to 12.7, hemoglobin decreased from 8.2 down to 7.4, platelets decreased from 103 down to 74, sodium improved from 132 up to 137, creatinine improved from 2.5 down to 1.6, T bili improved from 5.0 down to 3.1, remainder of his labs are relatively unremarkable. 03/27 patient seen at bedside, no acute events overnight. Patient has no complaints at this time. Patient is antibiotic was changed to cefazolin per Infectious Disease. We will coordinate with case management and Infectious Disease regarding long-term antibiotic therapy, whether the patient needs placement or not. PT to evaluate the patient for discharge needs regarding physical activity. 03/28 patient seen at bedside, no acute events overnight. Vitals and labs are stable at this time, pending discharge antibiotic recommendations per Infectious Disease. We will follow up with their recommendations whether the patient needs more inpatient IV antibiotics or if there will be a transition to SNF versus outpatient antibiotics. 03/29 patient seen at bedside, no acute events overnight. Vitals and labs are stable at this time, pending discharge antibiotic recommendations per Infectious Disease. Continue cefazolin. 03/30 patient seen at bedside, no acute events overnight. He is still complaining of some mild abdominal pain however it similar to previous days. He is tender to palpation which is consistent with SBP. Patient may be a good candidate for transition to long-term we will discuss with Infectious Disease. Currently pending their discharge plan REVIEW OF SYSTEMS 12 point review of systems negative unless noted in HPI PHYSICAL EXAM GENERAL APPEARANCE: The patient is awake, alert, and oriented, in no acute cardiopulmonary distress. NEUROLOGICAL: Cranial nerves II-XII grossly intact. Motor is 5/5 in bilateral upper and lower extremities proximal to distal. No sensory deficits. HEENT: Face is symmetric. Pupils are equal and reactive. Extraocular movements are intact. NECK: Supple. No JVD. No thyromegaly. No submental, submandibular, pre- /postauricular, occipital or supraclavicular lymphadenopathy. CHEST: Normal chest expansion. No Telemetry. LUNGS: He has decreased breath sounds on the left side CARDIOVASCULAR: Regular. S1 and S2 normal. No appreciable rubs, murmurs or gallops. ABDOMEN: Soft, generalized mild tenderness, and nondistended. There is no rebound, voluntary guarding, or rigidity. : Deferred. No Rangel. EXTREMITIES: 3+ pitting edema in the lower extremity bilaterally not cyanotic. No clubbing. Good capillary refill. SKIN: No skin breakdown. Vital Signs (last 8hr) Date Time Temp Pulse Resp B/P (MAP) Pulse Ox O2 Delivery O2 Flow Rate FiO2 03/30/24 07:00 99.1 98 20 127/70 96 Room Air 03/30/24 03:21 99.3 96 16 131/78 94 Room Air LABS: Laboratory: Test 03/30/24 03:40 03/29/24 04:11 Range/Units White Blood Count 8.7 4.8-10.8 K/uL Red Blood Count 2.89 L 4.50-6.20 MIL/uL Hemoglobin 8.1 L 14.0-18.0 g/dL Hematocrit 25.0 L 42-54 % Mean Corpuscular Volume 86.5 79-99 fL Mean Corpuscular Hemoglobin 28.0 27.0-33.0 pg Mean Corpuscular Hemoglobin Concent 32.4 32.0-36.0 g/dL Red Cell Distribution Width 18.7 H 11.0-15.5 % Platelet Count 68 L 130-400 K/uL Mean Platelet Volume 9.7 7.5-10.5 fL Nucleated Red Blood Cells 0.0 0.0-0.19 % Sodium Level 137 136-145 mmol/L Potassium Level 3.3 L 3.5-5.1 mmol/L Chloride Level 102 101-111 mmol/L Carbon Dioxide Level 30 21-32 mmol/L Blood Urea Nitrogen 24 H 7-18 mg/dL Creatinine 0.8 0.5-1.3 mg/dL Glomerular Filtration Rate Calc 108 >90 mL/min Random Glucose 122 H 70-105 mg/dL Total Calcium 7.0 L 8.5-10.1 mg/dL Phosphorus Level 2.9 2.5-4.9 mg/dL Magnesium Level 1.90 1.80-2.40 mg/dL Immature Granulocyte % (Auto) 3.0 H 0-1 % Neutrophils (%) (Auto) 60.2 40.0-77.0 % Lymphocytes (%) (Auto) 13.3 L 21.0-51.0 % Monocytes (%) (Auto) 18.3 H 3.0-13.0 % Eosinophils (%) (Auto) 4.8 0.0-8.0 % Basophils (%) (Auto) 0.4 0.0-5.0 % Neutrophils # (Auto) 4.6 1.8-7.7 K/uL Lymphocytes # (Auto) 1.0 1.0-4.8 K/uL Monocytes # (Auto) 1.4 H 0.1-1.0 K/uL Eosinophils # (Auto) 0.37 0.00-0.70 K/uL Basophils # (Auto) 0.03 0.00-0.20 K/uL Absolute Immature Granulocyte (auto 0.23 0-1 K/uL Total Bilirubin 4.3 H 0.2-1.0 mg/dL Aspartate Amino Transf (AST/SGOT) 34 10-37 U/L Alanine Aminotransferase (ALT/SGPT) 16 12-78 U/L Alkaline Phosphatase 104 50-136 U/L Total Protein 4.8 L 6.0-8.3 g/dL Albumin 2.1 L 3.5-5.0 g/dL Current Medications Medications (Trade) Dose Ordered Sig/Dorothy Route PRN Reason Start Time Stop Time Status Last Admin Dose Admin Albumin Human 50 ml @ 25 mls/hr Q8H IV 03/25/24 01:00 03/25/24 18:59 DC 03/25/24 17:36 25 MLS/HR Albumin Human 50 ml @ 25 mls/hr Q8H5 IV 03/24/24 21:00 03/24/24 21:04 DC Cefazolin Sodium (ANCEF 1 gm vial) 1 gm Q8H IVPB 03/27/24 11:30 04/06/24 11:29 03/30/24 10:32 1 GM Famotidine (Pepcid 20mg Vial) 20 mg Q48H IV 03/24/24 21:00 04/23/24 20:59 03/28/24 19:52 20 MG Furosemide (LASix 20MG VIAL) 20 mg Q12H IV 03/25/24 14:30 03/28/24 22:32 DC 03/28/24 16:29 20 MG Furosemide (LASix 20MG VIAL) 20 mg Q8H IV 03/29/24 06:30 04/24/24 14:29 03/29/24 22:29 20 MG Iron Sucrose (VenoFER) 300 mg Q24H IVP 03/25/24 15:00 03/25/24 14:42 DC Iron Sucrose 300 mg/Sodium Chloride 250 ml @ 83 mls/hr Q24H IV 03/25/24 15:00 03/27/24 18:01 DC 03/27/24 15:14 83 MLS/HR Magnesium Sulfate 50 ml @ 0 mls/hr PROTOCOL PRN IV hypomagnesemia 03/24/24 10:00 04/23/24 09:59 Meropenem 1 gm/ Sodium Chloride 100 ml @ 33.333 mls/ hr Q12H IV 03/24/24 07:00 03/24/24 09:37 DC 03/24/24 09:29 33.333 MLS/HR Meropenem 1 gm/ Sodium Chloride 100 ml @ 33.333 mls/ hr Q12H IVPB 03/24/24 21:30 03/27/24 11:08 DC 03/27/24 10:23 33.333 MLS/HR Potassium Chloride 100 ml @ 100 mls/hr AD PRN IV POTASSIUM PROTOCOL 03/24/24 10:00 04/23/24 09:59 Potassium Chloride (K-Dur/Klor-Con 20meq) 20 meq AD PRN PO POTASSIUM PROTOCOL 03/24/24 10:00 04/23/24 09:59 03/30/24 10:30 20 MEQ Potassium Chloride (KCl 10% Elixir 20meq/15ml) 20 meq AD PRN PO POTASSIUM PROTOCOL 03/24/24 10:00 04/23/24 09:59 03/28/24 05:58 20 MEQ Spironolactone (Aldactone 25mg) 25 mg BID PO 03/29/24 09:00 04/28/24 08:59 03/30/24 10:30 25 MG Spironolactone (Aldactone 25mg) 25 mg DAILY PO 03/29/24 09:00 03/28/24 22:32 DC Thiamine HCl (Vitamin B-1) 100 mg DAILY IVP 03/25/24 09:00 04/24/24 08:59 03/30/24 10:31 100 MG Vitamin B Complex/ Vit C/Folic Acid (Nephrovite Tablet) 1 cap DAILY PO 03/25/24 09:00 04/24/24 08:59 03/30/24 10:30 1 CAP DIAGNOSTICS / RADIOLOGY: [ ] ASSESSMENT: Symptomatic left-sided pleural effusion POA Decompensated liver cirrhosis POA Spontaneous bacterial peritonitis, MSSA, POA Chest pain likely secondary to coughing Generalized abdominal pain differential SBP versus GI etiology versus ascites Acute kidney injury, resolved Hypokalemia Volume overload Thrombocytopenia Generalized hives Possible sepsis rule out Normocytic anemia PLAN: - Continue PCCU - Continue cefazolin, pt growing staph aureus in ascites fluid - Continue furosemide 20mg IV BID - Start spironolactone 25mg q24h - Pt ammonia normal range with normal mental status. Hold lactulose for now - PT to evaluate the patient for dc needs - Follow up with ID regarding discharge antibiotics Disposition: Pending ID recommendations for discharge Total PCU time spent greater than 30 minutes. BRIANNE MORENO MD Mar 30, 2024 10:44
[2024-03-30] MEDS: ketOROlac 15MG/ML VIAL (15MG/ML) IV PRN (11:21)
--- NOTE | 2024-03-30 11:49 | PN ---
NEPHROLOGY PROGRESS NOTE Date/Time Patient Seen: Mar 30, 2024 SUBJECTIVE: This is a 49-year-old male with a past medical history of alcoholic liver cirrhosis with the current paracentesis. He presented to the emergency with complaints of shortness of breath, cough and phlegm. S/p paracentesis He did receive Albumin Chest x-ray showed left-sided pleural effusion. S/p paracentesis with1 L removed Ascites fluid was growing Staphylococcus aureus He continues on antibiotics as per ID Pending further ID recommendations He was noted with elevated BUN/creatinine. We are consulted for renal failure. Renal function and electrolytes are stable. Hemoglobin is stable He was seen in the medical floor, in no acute distress He continues with abdominal pain, distention No family at the bedside Prognosis remains guarded REVIEW OF SYSTEMS: GENERAL: Positive for generalized weakness NEUROLOGIC: Negative for any blurry vision, blind spots, double vision, facial asymmetry, dysphagia, dysarthria, hemiparesis, hemisensory deficits, vertigo, ataxia. HEENT: Negative for any head trauma, neck trauma, neck stiffness, photophobia, phonophobia, sinusitis, rhinitis. CARDIAC: Negative for any chest pain, dyspnea on exertion, paroxysmal nocturnal dyspnea, peripheral edema. PULMONARY: Negative for any shortness of breath, wheezing, COPD, or TB exposure. GASTROINTESTINAL: Negative for any abdominal pain, nausea, vomiting, bright red blood per rectum, melena. GENITOURINARY: Negative for any dysuria, hematuria, incontinence. INTEGUMENTARY: Negative for any rashes, cuts, insect bites. RHEUMATOLOGIC: Negative for any joint pains, photosensitive rashes, history of vasculitis or kidney problems. HEMATOLOGIC: Negative for any abnormal bruising, frequent infections or bleeding. PHYSICAL EXAM: GENERAL: Alert and oriented x 3. No acute distress. Well-nourished. EYES: EOMI. Anicteric. HENT: Moist mucous membranes. No scleral icterus. No cervical lymphadenopathy. LUNGS: Clear to auscultation bilaterally. No accessory muscle use. CARDIOVASCULAR: Regular rate and rhythm. No murmur. No JVD. ABDOMEN: Soft, non-tender and non-distended. No palpable masses. EXTREMITIES: No edema. Non-tender. SKIN: No rashes or lesions. Warm. NEUROLOGIC: No focal neurological deficits. CN II-XII grossly intact, but not individually tested. PSYCHIATRIC: Cooperative. Appropriate mood and affect. LABORATORY: [ ] Hematology Labs: Test 03/30/24 03:40 03/29/24 04:11 Range/Units White Blood Count 8.7 4.8-10.8 K/uL Red Blood Count 2.89 L 4.50-6.20 MIL/uL Hemoglobin 8.1 L 14.0-18.0 g/dL Hematocrit 25.0 L 42-54 % Mean Corpuscular Volume 86.5 79-99 fL Mean Corpuscular Hemoglobin 28.0 27.0-33.0 pg Mean Corpuscular Hemoglobin Concent 32.4 32.0-36.0 g/dL Red Cell Distribution Width 18.7 H 11.0-15.5 % Platelet Count 68 L 130-400 K/uL Mean Platelet Volume 9.7 7.5-10.5 fL Nucleated Red Blood Cells 0.0 0.0-0.19 % Immature Granulocyte % (Auto) 3.0 H 0-1 % Neutrophils (%) (Auto) 60.2 40.0-77.0 % Lymphocytes (%) (Auto) 13.3 L 21.0-51.0 % Monocytes (%) (Auto) 18.3 H 3.0-13.0 % Eosinophils (%) (Auto) 4.8 0.0-8.0 % Basophils (%) (Auto) 0.4 0.0-5.0 % Neutrophils # (Auto) 4.6 1.8-7.7 K/uL Lymphocytes # (Auto) 1.0 1.0-4.8 K/uL Monocytes # (Auto) 1.4 H 0.1-1.0 K/uL Eosinophils # (Auto) 0.37 0.00-0.70 K/uL Basophils # (Auto) 0.03 0.00-0.20 K/uL Absolute Immature Granulocyte (auto 0.23 0-1 K/uL Chemistry Labs: Test 03/30/24 03:40 03/29/24 04:11 Range/Units Sodium Level 137 136-145 mmol/L Potassium Level 3.3 L 3.5-5.1 mmol/L Chloride Level 102 101-111 mmol/L Carbon Dioxide Level 30 21-32 mmol/L Blood Urea Nitrogen 24 H 7-18 mg/dL Creatinine 0.8 0.5-1.3 mg/dL Glomerular Filtration Rate Calc 108 >90 mL/min Random Glucose 122 H 70-105 mg/dL Total Calcium 7.0 L 8.5-10.1 mg/dL Phosphorus Level 2.9 2.5-4.9 mg/dL Magnesium Level 1.90 1.80-2.40 mg/dL Total Bilirubin 4.3 H 0.2-1.0 mg/dL Aspartate Amino Transf (AST/SGOT) 34 10-37 U/L Alanine Aminotransferase (ALT/SGPT) 16 12-78 U/L Alkaline Phosphatase 104 50-136 U/L Total Protein 4.8 L 6.0-8.3 g/dL Albumin 2.1 L 3.5-5.0 g/dL DIAGNOSTICS / RADIOLOGY: REASON: pneum onia ORDERING PHYSICIAN: CHULA BARR PROCEDURE: CXR1VW - CHEST 1VW Exam Type: CHEST 1VW Clinical Information: pneum onia Comparison: None Findings: Ill-defined infiltrates of both lungs are seen consistent with bilateral pneumonia. . The heart is normal in size. The bony and soft tissue structures show no worrisome pathology. IMPRESSION: Findings consistent with pneumonia. Follow-up is advised. DICTATED BY: ELAINE SPENCER MD DATE: 03/28/24 0848 REASON: s/p thoracentesis to left ORDERING PHYSICIAN: KERMIT ALEXANDRA PROCEDURE: CXR1VW - CHEST 1VW CHEST 1VW HISTORY: Left thoracentesis COMPARISON: None FINDINGS: A frontal projection of the chest was obtained. Mild bilateral pulmonary infiltrates are seen may be related to mild pulmonary vascular congestion with possible superimposed pneumonitis. No pneumothorax is seen. The heart is borderline enlarged. Degenerative changes are seen. No evidence of aortic calcification is seen. IMPRESSION: 1. Mild bilateral pulmonary infiltrates are seen may be related to mild pulmonary vascular congestion with possible superimposed pneumonitis. No pneumothorax. DICTATED BY: ERIN SIBLEY MD DATE: 03/25/24 1515 REASON: PNEUMONIA ORDERING PHYSICIAN: RAMYA COY MD PROCEDURE: CHEST WO - CT CHEST W/O CONTRAST CT CHEST W/O CONTRAST HISTORY: Shortness of breath COMPARISON: None TECHNIQUE: Multiple sequential axial images of the chest were obtained from the thoracic inlet through upper abdomen. Patient was not given contrast through intravenous route. FINDINGS: There is no evidence of pulmonary nodule or parenchymal disease. There are bilateral pleural effusion with left more than right with subsegmental atelectasis. There is no evidence of pneumothorax. There are normal size mediastinal and hilar lymph nodes. The heart is not enlarged. Degenerative changes of the thoracolumbar spine are present. There is no evidence of adrenal nodule. IMPRESSION: 1. Bilateral pleural effusions with left more than right. CT was performed with one or more following dose reduction techniques: automated exposure control, adjustment of the mA and kv according to patient's size, or use of a iterative reconstruction technique. DICTATED BY: ERIN SIBLEY MD DATE: 03/24/24 152 REASON: ASCITES, SBP ORDERING PHYSICIAN: SKYLAR HUFF MD PROCEDURE: PARA ABD - US ABDOMINAL PARACENTESIS IR US ABDOMINAL PARACENTESIS IR HISTORY: Ascites COMPARISON: None TECHNIQUE: Informed consent was obtained. Risks and benefits were explained to the patient. A timeout was performed. Patient was prepped and draped in a sterile fashion. Local anesthetics was given as required. Under ultrasound guidance, ascites fluid was localized. Paracentesis was performed. FINDINGS: 1 L of yellowish fluid was aspirated. Less than 2 cc blood loss is noted. Patient tolerated procedure without complication. Patient left the department in good condition. IMPRESSION: 1. Uncomplicated ultrasound guidance paracentesis. DICTATED BY: ERIN SIBLEY MD DATE: 03/24/24 152 REASON: chest pain ORDERING PHYSICIAN: SKYLAR HUFF MD PROCEDURE: ECHO CMP - ECHO 2-D COMPLETE APPROVED REPORT EXAM: Two-dimensional and M-mode echocardiogram with Doppler and color Doppler. INDICATION ICD: Chest Pain 2D Dimensions RVDd 3.8 cm LVEF(%) 61.3 (>50%) LVED Vol(simp.) 99.0 mL IVSd 1.1 (0.7-1.1cm) FS(%) 33 % LVES Vol(simp.) 47.0 mL LVDd 4.3 (3.8-5.6cm) LA (2D) 3.6 (1.6-4.0cm) LVEF(%, simp.) 53 % PWd 1.2 (0.7-1.1cm) Ao Root(2D) 3.4 (2.0-3.7cm) LA ESV INDEX (4CH) 14.30 mL/m2 IVSs 1.2 cm LVOT diam 2.4 (1.8-2.4cm) LVDs 2.9 (2.5-4.0cm) IVC diam 1.4 cm PWs 1.5 cm M-Mode Dimensions EPSS 0.7 cm LA (MM) 4.7 (1.6-4.0cm) Ao Root(MM) 3.3 (2.0-3.7cm) Aortic Valve AoV VTI 0.2 m Ao Mean GR 5.0 mmHg LVOT VTI 0.14 m CLARA (VMAX) 2.7 cm2 CLARA (VTI) 2.7 cm2 Mitral Valve MV E Vmax 76.0 cm/s DECEL Time 116 ms MV A Vmax 85.4 cm/s P 1/2 T 35 ms E/A ratio 0.9 MVA (PHT) 6.3 cm2 TDI E/E' Medial 9.7 E/E' Lateral 5.7 Medial E' Peak V 7.80 cm/s Lateral E' Peak V 13.30 cm/s Pulmonary Valve PV VTI 0.21 m PV Mean GR 4 mmHg Left Ventricle The left ventricle is normal size. There is normal LV segmental wall motion. There is normal left ventricular wall thickness. LVEF is 50-55%. The left ventricular diastolic function is normal. Right Ventricle The right ventricle is normal size. The right ventricular systolic function is normal. Atria The left atrium size is normal. The right atrium size is normal. Aortic Valve The aortic valve is normal in structure. No aortic regurgitation is present. There is no aortic valvular stenosis. Mitral Valve The mitral valve is normal in structure. There is no mitral valve regurgitation noted. There is no mitral valve stenosis. Tricuspid Valve The tricuspid valve is normal in structure. There is no tricuspid valve regurgitation noted. Pulmonic Valve The pulmonary valve is normal in structure. There is no pulmonic valvular regurgitation. Great Vessels The aortic root is normal in size. The IVC is normal in size and collapses >50% with inspiration. Pericardium There is no pericardial effusion. Other Information Quality : Good Rhythm : NSR Conclusion LVEF is 50-55%. The left ventricular diastolic function is normal. No significant valvular abnormalities. DICTATED BY: JYOTHI BORRERO DO DATE: 03/24/24 1240 REASON: generalized abdominal pain, cirrhosis ORDERING PHYSICIAN: SKYLAR HUFF MD PROCEDURE: ABD PEL WO - CT ABDOMEN/PELVIS W/O CONTRAST CT ABDOMEN/PELVIS W/O CONTRAST HISTORY: Abdominal pain COMPARISON: 10/09/2023 TECHNIQUE: Multiple sequential axial images of the abdomen and pelvis were obtained from the dome of the diaphragm through symphysis pubis. Patient was not given contrast through intravenous route. Oral contrast was not given. FINDINGS: There are bilateral pleural effusions with compressive atelectasis with left more than right. There is no evidence of parenchymal disease or pulmonary nodule of the visualized lower lungs. Degenerative changes of the thoracolumbar spine are present. The heart is not enlarged. Liver measures 15 cm. The spleen is enlarged measuring 16 cm. There are abdominal varices. There is anasarca. The liver, spleen, adrenal glands and pancreas are unremarkable. There is no evidence of hydronephrosis bilaterally. No evidence of renal stone is seen. Fecal material is seen in the colon. There are normal size retroperitoneal and mesenteric lymph nodes. There is small ascites. Atherosclerotic changes are present. Pelvic sidewalls are symmetric bilaterally. Bladder is well distended without wall thickening. IMPRESSION: 1. Cirrhotic liver with enlarged spleen and abdominal varices and small ascites. Bilateral pleural effusions with left more than right with compressive atelectasis. This was seen on previous study. CT was performed with one or more following dose reduction techniques: automated exposure control, adjustment of the mA and kv according to patient's size, or use of a iterative reconstruction technique. DICTATED BY: ERIN SIBLEY MD DATE: 03/24/24 1017 REASON: CHEST PAIN ORDERING PHYSICIAN: SHAHID GAVIN MD PROCEDURE: CXR1VW - CHEST 1VW CHEST 1VW HISTORY: Chest pain COMPARISON: 12/27/2023 FINDINGS: A frontal projection of the chest was obtained. Mild left lung pulmonary infiltrates are seen with small left pleural effusion. Mild congestive changes are seen. The heart is normal in size. Degenerative changes are seen. No evidence of aortic calcification is seen. IMPRESSION: 1. Mild left lung pulmonary infiltrates are seen with small left pleural effusion. Mild congestive changes are seen. DICTATED BY: ERIN SIBLEY MD DATE: 03/24/24 0646 ASSESSMENT: Acute kidney injury Volume overload Symptomatic left-sided pleural effusion Decompensated liver cirrhosis SBP rule out Chest pain Generalized abdominal pain differential SBP versus GI etiology versus ascites Thrombocytopenia Generalized hives Possible sepsis rule out Normocytic anemia PLAN: Labs, diagnostic, radiologic exams reviewed and interpreted by myself and supervising physician. We have reviewed external records in detail Patient may have hepatorenal syndrome patient condition is critical Continue with antibiotics as per ID Continue with diuretics Please renally adjust medications Require close monitoring of renal function and electrolytes Order CBC, CMP, and electrolytes in am Continue with antibiotics Renal diabetic diet BiPAP as necessary, for respiratory distress Monitor blood pressure adjust medication doses as needed Avoid hypotensive episodes May use Dilaudid 0.5 mg IV every 6 hours as needed for severe pain Monitor blood sugars Strict intake, output, and daily weight should be monitored Please renally adjust medications Avoid nephrotoxic and nonsteroidal drugs Avoid contrast if possible Will continue to monitor renal function, anemia, electrolytes Treatment plan discussed with patient Questions were answered We have discussed with the other team physicians in detail about the care plan We will continue to monitor the patient closely ATTESTATION BY PHYSICIAN I have seen and examined the patient. I reviewed the documentation, medical decision making, and treatment plan as noted by the mid-level provider above. I agree with the findings and plan of care. KASHIF ADKINS MD, [facility] Mar 30, 2024 11:49
--- NOTE | 2024-03-30 14:56 | PN ---
INFECTIOUS DISEASE PROGRESS NOTE Date of Service: Mar 30, 2024 SUBJECTIVE: This is a 49-year-old male patient who was seen and examined at bedside in room 227. Patient is awake, alert and oriented x 3. Patient still voicing pain to the mid abdominal area. Abdomen is soft at this time. Patient reported that his next appointment for a paracentesis is on April 05. From Infectious Disease standpoint patient is cleared to be discharged on cephalexin x 10 days. Prescription was written and in chart. PHYSICAL EXAM EYES: Anicteric. Pupils equal and reactive. HENT: No oral thrush seen, moist Oral mucosa NECK: Supple, no JVD or thyromegaly. LUNGS: Good air entry. No rales, no rhonchi. CARDIOVASCULAR: S1, S2 regular. No murmur heard. ABDOMEN: Soft, non tender, bowel sounds present, no organomegaly CENTRAL NERVOUS SYSTEM: Awake, alert, oriented x 3. No focal deficits. SKIN: No rashes, no swelling. LYMPHATICS: No peripheral lymphadenopathy MUSCULOSKELETAL: No joint swelling, erythema or tenderness. EXTREMITIES: No cyanosis or clubbing BACK: No deformity, no pressure ulcer. GENITOURINARY: No dysuria or hematuria Vital Sign (Last 12 Hours) 03/30/24 03/30/24 03/30/24 03:21 07:00 08:00 Temp 99.3 99.1 Pulse 96 98 Resp 16 20 B/P (MAP) 131/78 127/70 Pulse Ox 94 96 96 O2 Delivery Room Air Room Air Room Air* O2 Flow Rate 0 FiO2 21 Intake & Output (last 24hrs) 03/29/24 03/29/24 03/30/24 15:00 23:00 07:00 Intake Total 100.0 ml 290.0 ml Output Total 504 ml 400 ml Balance -404.0 ml -110.0 ml LABS: Laboratory: Test 03/30/24 03:40 03/29/24 04:11 Range/Units White Blood Count 8.7 4.8-10.8 K/uL Red Blood Count 2.89 L 4.50-6.20 MIL/uL Hemoglobin 8.1 L 14.0-18.0 g/dL Hematocrit 25.0 L 42-54 % Mean Corpuscular Volume 86.5 79-99 fL Mean Corpuscular Hemoglobin 28.0 27.0-33.0 pg Mean Corpuscular Hemoglobin Concent 32.4 32.0-36.0 g/dL Red Cell Distribution Width 18.7 H 11.0-15.5 % Platelet Count 68 L 130-400 K/uL Mean Platelet Volume 9.7 7.5-10.5 fL Nucleated Red Blood Cells 0.0 0.0-0.19 % Sodium Level 137 136-145 mmol/L Potassium Level 3.3 L 3.5-5.1 mmol/L Chloride Level 102 101-111 mmol/L Carbon Dioxide Level 30 21-32 mmol/L Blood Urea Nitrogen 24 H 7-18 mg/dL Creatinine 0.8 0.5-1.3 mg/dL Glomerular Filtration Rate Calc 108 >90 mL/min Random Glucose 122 H 70-105 mg/dL Total Calcium 7.0 L 8.5-10.1 mg/dL Phosphorus Level 2.9 2.5-4.9 mg/dL Magnesium Level 1.90 1.80-2.40 mg/dL Immature Granulocyte % (Auto) 3.0 H 0-1 % Neutrophils (%) (Auto) 60.2 40.0-77.0 % Lymphocytes (%) (Auto) 13.3 L 21.0-51.0 % Monocytes (%) (Auto) 18.3 H 3.0-13.0 % Eosinophils (%) (Auto) 4.8 0.0-8.0 % Basophils (%) (Auto) 0.4 0.0-5.0 % Neutrophils # (Auto) 4.6 1.8-7.7 K/uL Lymphocytes # (Auto) 1.0 1.0-4.8 K/uL Monocytes # (Auto) 1.4 H 0.1-1.0 K/uL Eosinophils # (Auto) 0.37 0.00-0.70 K/uL Basophils # (Auto) 0.03 0.00-0.20 K/uL Absolute Immature Granulocyte (auto 0.23 0-1 K/uL Total Bilirubin 4.3 H 0.2-1.0 mg/dL Aspartate Amino Transf (AST/SGOT) 34 10-37 U/L Alanine Aminotransferase (ALT/SGPT) 16 12-78 U/L Alkaline Phosphatase 104 50-136 U/L Total Protein 4.8 L 6.0-8.3 g/dL Albumin 2.1 L 3.5-5.0 g/dL ASSESSMENT: Spontaneous bacterial peritonitis. Sepsis. Leukocytosis. Ascites s/p paracentesis with 1 L removed on 03/24/2024.. Bilateral pleural effusions, status post left thoracentesis with2 L removed. Renal failure. PLAN: From Infectious Disease standpoint patient is cleared to be discharged on cephalexin x 10 days. Prescription was written and in chart. This case was reviewed and discussed with my supervising physician and the above assessment and plan was formulated and agreed upon. ATTESTATION BY PHYSICIAN I have seen and examined the patient. I reviewed the documentation, medical decision making, and treatment plan as noted by the mid-level provider above. I agree with the findings and plan of care. RAMYA COY MD, [facility] Mar 30, 2024 14:56
--- NOTE | 2024-03-30 15:55 | NUR ---
DC PLAN PATIENT TO DISCHARGE ON PO ABX. PATIENT NOT READY FOR DC DUE TO PAIN. ANTICIPATE DCP TO HOME.
[2024-03-30 16:00] VITALS: BP 111/68; PULSE 88; RESP 20; TEMP 98.7
[2024-03-30] MEDS: MAGNESIUM 2GM PREMIX 50ML 50 ML IV PRN (17:18)
[2024-03-30 19:45] VITALS: BP 117/72; PULSE 85; RESP 20; TEMP 98.2
[2024-03-30 20:00] VITALS: O2SAT 99
[2024-03-31 00:45] VITALS: BP 119/70; PULSE 91; RESP 20; TEMP 98.2
[2024-03-31 03:45] VITALS: BP 109/84; PULSE 95; RESP 18; TEMP 98.6
[2024-03-31 04:11] LABS: BASOPHILS # (AUTO) 0.02 K/uL (0.00-0.20); BASOPHILS % (AUTO) 0.3 % (0.0-5.0); EOSINOPHILS # (AUTO) 0.33 K/uL (0.00-0.70); EOSINOPHILS % (AUTO) 4.2 % (0.0-8.0); HEMATOCRIT 24.5 % (42-54); LYMPHOCYTES # (AUTO) 0.9 K/uL (1.0-4.8); LYMPHOCYTES % (AUTO) 11.4 % (21.0-51.0); MEAN CORPUSCULAR HEMOGLOBIN 28.9 pg (27.0-33.0); MEAN CORPUSCULAR HGB CONC 32.7 g/dL (32.0-36.0); MEAN CORPUSCULAR VOLUME 88.4 fL (79-99); MONOCYTES # (AUTO) 1.3 K/uL (0.1-1.0); NEUTROPHILS # (AUTO) 5.2 K/uL (1.8-7.7); NEUTROPHILS % (AUTO) 66.8 % (40.0-77.0); PLATELET COUNT (AUTO) 78 K/uL (130-400); RED BLOOD CELL COUNT(AUTO) 2.77 MIL/uL (4.50-6.20); WHITE BLOOD COUNT (AUTO) 7.8 K/uL (4.8-10.8)
[2024-03-31 04:52] LABS: ALBUMIN 1.9 g/dL (3.5-5.0); BILIRUBIN,TOTAL 3.6 mg/dL (0.2-1.0); CREATININE 1.1 mg/dL (0.5-1.3); MAGNESIUM 2.1 mg/dL (1.80-2.40); PHOSPHORUS 3.3 mg/dL (2.5-4.9); POTASSIUM 3.6 mmol/L (3.5-5.1); TOTAL PROTEIN, SERUM 4.8 g/dL (6.0-8.3)
[2024-03-31 07:00] VITALS: BP 112/67; PULSE 94; RESP 20; TEMP 98.7
[2024-03-31 08:20] VITALS: O2SAT 99
[2024-03-31] MEDS ORDERED: LACT10SO9 PO (08:24)
[2024-03-31] MEDS ORDERED: SPIR25TA6 PO (08:24)
[2024-03-31] MEDS ORDERED: FURO20TA4 PO (08:24)
--- NOTE | 2024-03-31 09:40 | NUR ---
kolby evans :03/31/2024 at 2pm PRIMARY MD HERNANDEZ:04/12/[email or web address]
--- NOTE | 2024-03-31 10:00 | NUR ---
PT DC AT THIS TIME. PT AAOX3. NO DISTRESS NOTED. VITAL STABLE. PT MADE AWARE OF FOLLOW UP APPOINTMENTS AND GIVEN DC INSTRUCTIONS. DC IV AT THIS TIME, IV CATHETER INTACT, DRESSING APPLIED. DRY AND INTACT. PT DC VIA WHEELCHAIR ON PRIVATE CAR. ALL QUESTIONS ANSWERED.
--- NOTE | 2024-03-31 18:15 | DS ---
Discharge Summary Hospital Course Summary: 49-year-old male with past medical history of liver cirrhosis, history of recurrent ascites needing paracentesis who presented to the hospital secondary to shortness of breath. The patient states that since the previous day he had been feeling short of breath which was present at rest and with exertion. He also complained of cough without any sputum production. He felt his cough triggered midsternal chest pain which resolved after a few minutes. He denied any paresthesias, diaphoresis, nausea, vomiting associated with the pain. Denied any melena, hematochezia, hematemesis, fever, chills, dysuria, hematuria. Patient states he had paracentesis done few days previously and he had also underwent a thoracentesis around a month ago. Further workup showed ascites and significant pleural effusion. He was admitted and started on empiric antibiotics and diuresis. Pulmonology was consulted and performed both paracentesis and thoracentesis. His ascites fluid grew out gram positive organism consistent with spontaneous bacterial peritonitis. ID was consulted and adjusted his medications. By hospital day 7 he was stable and cleared for discharge home on PO antibiotics. . Detector Car Operator(s): Infectious Disease Gastroenterology Pulmonology Procedure(s): Exam Type: CHEST 1VW Clinical Information: pneum onia Comparison: None Findings: Ill-defined infiltrates of both lungs are seen consistent with bilateral pneumonia. . The heart is normal in size. The bony and soft tissue structures show no worrisome pathology. IMPRESSION: Findings consistent with pneumonia. Follow-up is advised. CT CHEST W/O CONTRAST HISTORY: Shortness of breath COMPARISON: None TECHNIQUE: Multiple sequential axial images of the chest were obtained from the thoracic inlet through upper abdomen. Patient was not given contrast through intravenous route. FINDINGS: There is no evidence of pulmonary nodule or parenchymal disease. There are bilateral pleural effusion with left more than right with subsegmental atelectasis. There is no evidence of pneumothorax. There are normal size mediastinal and hilar lymph nodes. The heart is not enlarged. Degenerative changes of the thoracolumbar spine are present. There is no evidence of adrenal nodule. IMPRESSION: 1. Bilateral pleural effusions with left more than right. US ABDOMINAL PARACENTESIS IR HISTORY: Ascites COMPARISON: None TECHNIQUE: Informed consent was obtained. Risks and benefits were explained to the patient. A timeout was performed. Patient was prepped and draped in a sterile fashion. Local anesthetics was given as required. Under ultrasound guidance, ascites fluid was localized. Paracentesis was performed. FINDINGS: 1 L of yellowish fluid was aspirated. Less than 2 cc blood loss is noted. Patient tolerated procedure without complication. Patient left the department in good condition. IMPRESSION: 1. Uncomplicated ultrasound guidance paracentesis. CT ABDOMEN/PELVIS W/O CONTRAST HISTORY: Abdominal pain COMPARISON: 10/09/2023 TECHNIQUE: Multiple sequential axial images of the abdomen and pelvis were obtained from the dome of the diaphragm through symphysis pubis. Patient was not given contrast through intravenous route. Oral contrast was not given. FINDINGS: There are bilateral pleural effusions with compressive atelectasis with left more than right. There is no evidence of parenchymal disease or pulmonary nodule of the visualized lower lungs. Degenerative changes of the thoracolumbar spine are present. The heart is not enlarged. Liver measures 15 cm. The spleen is enlarged measuring 16 cm. There are abdominal varices. There is anasarca. The liver, spleen, adrenal glands and pancreas are unremarkable. There is no evidence of hydronephrosis bilaterally. No evidence of renal stone is seen. Fecal material is seen in the colon. There are normal size retroperitoneal and mesenteric lymph nodes. There is small ascites. Atherosclerotic changes are present. Pelvic sidewalls are symmetric bilaterally. Bladder is well distended without wall thickening. IMPRESSION: 1. Cirrhotic liver with enlarged spleen and abdominal varices and small ascites. Bilateral pleural effusions with left more than right with compressive atelectasis. This was seen on previous study. Echocardiogram: Conclusion LVEF is 50-55%. The left ventricular diastolic function is normal. No significant valvular abnormalities. Assessment/Plan: Symptomatic left-sided pleural effusion POA Decompensated liver cirrhosis POA Spontaneous bacterial peritonitis, MSSA, POA Chest pain likely secondary to coughing Generalized abdominal pain differential SBP versus GI etiology versus ascites Acute kidney injury, resolved Hypokalemia Volume overload Thrombocytopenia Generalized hives Possible sepsis rule out Normocytic anemia Discharge Instructions: Follow up with PCP in 3-7 days Follow up with GI in 1-2 weeks Home Medications: Active Scripts Lactulose (Lactulose) 20 Gram/30 Ml Solution, 20 GM PO BID, #500 ML Titrate to 2 BM per day Prov:BRIANNE MORENO MD 03/31/24 Furosemide (Furosemide) 20 Mg Tablet, 20 MG PO BID, #60 TAB Prov:BRIANNE MORENO MD 03/31/24 Spironolactone (Spironolactone) 25 Mg Tablet, 25 MG PO BID, #30 TAB 0 Refills Prov:BRIANNE MORENO MD 03/31/24 Discontinued Scripts Azithromycin (Azithromycin) 250 Mg Tablet, 250 MG PO DAILY, #6 TAB Prov:SAUL CHO MD 12/27/23 Cefuroxime Axetil (Cefuroxime) 500 Mg Tablet, 500 MG PO Q12H for 10 Days, #20 TAB Prov:JAYE MENDEZ MD 12/26/23 New Medications: Furosemide (Furosemide) 20 Mg Tablet 20 MG PO BID, #60 TAB Lactulose (Lactulose) 20 Gram/30 Ml Solution 20 GM PO BID, #500 ML Titrate to 2 BM per day Spironolactone (Spironolactone) 25 Mg Tablet 25 MG PO BID, #30 TAB 0 Refills Discontinued Medications: Azithromycin (Azithromycin) 250 Mg Tablet 250 MG PO DAILY, #6 TAB Cefuroxime Axetil (Cefuroxime) 500 Mg Tablet 500 MG PO Q12H for 10 Days, #20 TAB Time spent arranging discharge: 31-60 minutes BRIANNE MORENO MD Mar 31, 2024 18:15
--- NOTE | 2024-03-31 22:56 | PN ---
NEPHROLOGY NOTE SUBJECTIVE: The patient has multiple medical problems with underlying renal failure and anemia. The patient has cirrhosis, ascites, abdominal pain. The patient has no fever, chills or rigors. No cough, expectoration, or hemoptysis. The patient has finding consistent with SBP. No other associated finding. No other aggravating or relieving factors. All the other systemic review is unchanged. The patient denies any fever, chills or rigors. No cough, expectoration, or hemoptysis. No abdominal pain. No nausea or vomiting. PHYSICAL EXAMINATION: GENERAL: Pale, no other distress. VITAL SIGNS: Blood pressure is around 119/70, pulse is 95, respiratory rate is 19. HEENT: Head is atraumatic, normocephalic. Pupils are round, reactive to light. Sclerae anicteric. Conjunctivae not pale. Oral mucosa is not dry. NECK: Without masses or bruits. Thyroid is palpable. Neck has no bruits. CHEST: Shows equal to thoracic percussion note being resonant in all areas. CARDIAC: Regular rhythm. No rub. No S3, S4. No parasternal heave. Apical beat is not localized. ABDOMEN: No guarding or tenderness. Bowel sounds are normoactive. No free fluid. LABORATORY DATA: We have reviewed available labs in detail and the labs have shown hemoglobin is 8. The patient has BUN of 30, creatinine is 1.1, slightly rising. Low sodium and very low albumin. PROBLEMS: Acute on chronic renal failure, electrolyte problem, hyponatremia, cirrhosis, spontaneous bacterial peritonitis, abdominal pain, multiple other comorbidities. PLAN: The patient to continue on antibiotic ____. Continue monitoring of renal function, electrolytes and urine output. Counseled on the diet. The patient received IV albumin before with paracentesis. IV albumin can be considered. IV Dilaudid can be used for severe pain 0.5 every 6 hours. We will be monitoring closely. We have discussed with other team members. Thank you for this patient. TID: [id number] RECEIPT: [id number]
== END 2024-03-31 10:00 | disposition home or self-care (01) | DRG 871 ==
LOC: EDH 05:48 → EDHIP 09:21 → 2DH 18:22
PROVIDERS: ADMIT Internal Medicine; ATTEND Internal Medicine
PROC: 0W9B3ZZ Drainage of Left Pleural Cavity, Percutaneous Approach (ICD-10-PCS; principal; 2024-03-25)
DX: A41.9 Sepsis, unspecified organism (principal); J18.9 Pneumonia, unspecified organism; K65.2 Spontaneous bacterial peritonitis; J90 Pleural effusion, not elsewhere classified; N17.9 Acute kidney failure, unspecified; J98.11 Atelectasis; E87.1 Hypo-osmolality and hyponatremia; R18.8 Other ascites; E66.01 Morbid (severe) obesity due to excess calories; D69.6 Thrombocytopenia, unspecified; E87.70 Fluid overload, unspecified; K74.60 Unspecified cirrhosis of liver; B95.61 Methicillin susceptible Staphylococcus aureus infection as the cause of diseases classified elsewhere; E87.6 Hypokalemia; D64.9 Anemia, unspecified; N18.9 Chronic kidney disease, unspecified; K76.9 Liver disease, unspecified; Z79.2 Long term (current) use of antibiotics; Z82.49 Family history of ischemic heart disease and other diseases of the circulatory system; Z79.899 Other long term (current) drug therapy; Z88.0 Allergy status to penicillin
CPT/HCPCS: 36415; 49083; 71045; 71250; 74176; 80048; 80053; 80076; 81001; 82140; 82436; 82550; 82570; 82728; 82945; 83036; 83540; 83550; 83615; 83735; 83880; 83935; 83986; 84100; 84133; 84145; 84157; 84300; 84443; 84484; 84550; 85025; 85027; 85610; 85730; 86140; 87040; 87071; 87086; 87116; 87186; 87205; 87206; 88112; 88305; 89051; 93005; 93306; 96365; 96375; 99291; C1729; G0378; J0690; J1200; J1756; J1885; J1940; J2185; J2919; J3411; J3430; J3475; J3490; J7050; P9047

== ENCOUNTER → 2024-11-03 | Outpatient (CLI) | payer MEDICAID ==
[~2024-11-03] MED LIST changes: -AZIT250T9 PO; -CEFU500T67 PO; +FURO20TA4 PO; +LACT10SO9 PO; +SPIR25TA6 PO
--- NOTE | 2024-11-05 05:11 | HMCIMG ---
EXAM: CR Chest, 2 views CLINICAL HISTORY: Shortness of breath. COMPARISON: Chest radiograph dated 03/28/2024. FINDINGS: Large left and small right pleural effusions with compressive atelectasis and airspace disease in the left upper, mid, and bilateral lower zones. Stable cardiac size. No pneumothorax. No acute osseous abnormality. IMPRESSION: Large left and small right pleural effusions with compressive atelectasis and airspace disease in the left upper, mid, and bilateral lower zones. The findings are new compared to the previous chest radiograph dated 03/28/2024. /[place]
== END | disposition home or self-care (01) ==
LOC: RAH 13:32
PROVIDERS: ATTEND Physician Assistant Medical
DX: J98.11 Atelectasis (principal); J90 Pleural effusion, not elsewhere classified; R06.02 Shortness of breath; K74.60 Unspecified cirrhosis of liver
CPT/HCPCS: 36415; 71046; 82105

== ENCOUNTER → 2024-11-24 | Outpatient (CLI) | payer MEDICAID ==
--- NOTE | 2024-11-24 12:42 | HMCIMG ---
EXAM: CT Abdomen and Pelvis without Intravenous Contrast CLINICAL HISTORY: 49-year-old female with abnormal liver and biliary tract findings. TECHNIQUE: Axial computed tomography images of the abdomen and pelvis without intravenous contrast. Dose reduction technique was used including one or more of the following: automated exposure control, adjustment of mA and kV according to patient size, and/or iterative reconstruction. CONTRAST: Without intravenous contrast; COMPARISON: CT abdomen and pelvis 11/24/2024 10:44 FINDINGS: LUNG BASES: Large left pleural effusion. Small right pleural effusion and consolidation in the left lower lobe suggest pneumonia. Rounded consolidation in the right lower lobe suggests round pneumonia. The right-sided pleural effusion has decreased compared to prior CT abdomen and pelvis 11/24/2024 10:44. LIVER: Somewhat cirrhotic appearance of the liver. GALLBLADDER AND BILE DUCTS: Unremarkable. No ductal dilation. PANCREAS: Unremarkable. SPLEEN: Mild splenomegaly. ADRENAL GLANDS: Unremarkable. KIDNEYS, URETERS, AND BLADDER: Unremarkable. No hydronephrosis or nephrolithiasis. No ureteral or bladder calculi. STOMACH AND BOWEL: Edematous loops of small bowel suggesting mild small bowel enteritis. APPENDIX: No CT evidence for appendicitis. PERITONEUM: Moderate ascites in the abdomen and pelvis. Ascites in the abdomen and pelvis has decreased compared to prior CT abdomen and pelvis 11/24/2024 10:44. LYMPH NODES: No lymphadenopathy. REPRODUCTIVE: Unremarkable as visualized. VASCULATURE: Prominence of the portal venous structures suggesting portal venous hypertension. ABDOMINAL WALL AND SOFT TISSUES: Unremarkable. BONES: Mild degenerative changes of the lumbar spine. Similar to prior CT abdomen and pelvis 11/24/2024 10:44. No fracture or suspicious osseous abnormality. IMPRESSION: 1. Large left pleural effusion and small right pleural effusion. Consolidation in the left lower lobe suggests pneumonia. Rounded consolidation in the right lower lobe suggests round pneumonia. 2. Somewhat cirrhotic appearance of the liver with prominence of the portal venous structures suggesting portal venous hypertension. 3. Mild splenomegaly. 4. Moderate ascites in the abdomen and pelvis, decreased compared to prior study. 5. Edematous loops of small bowel suggesting mild small bowel enteritis. /[place]
== END | disposition home or self-care (01) ==
LOC: RAH 10:26
PROVIDERS: ATTEND Internal Medicine Gastroenterology
DX: R16.1 Splenomegaly, not elsewhere classified (principal); J90 Pleural effusion, not elsewhere classified; R93.2 Abnormal findings on diagnostic imaging of liver and biliary tract; K52.89 Other specified noninfective gastroenteritis and colitis; R18.8 Other ascites; M47.816 Spondylosis without myelopathy or radiculopathy, lumbar region
CPT/HCPCS: 74176

== ENCOUNTER → 2025-03-03 | Outpatient (CLI) | payer MEDICAID ==
--- NOTE | 2025-03-09 15:54 | HMCIMG ---
EXAM: CR Chest, 1 View CLINICAL HISTORY: Shortness of breath. COMPARISON: Chest radiograph dated 11/03/24 at 14:30 EDT, which showed large left and small right pleural effusions with compressive atelectasis and airspace disease in the left upper, mid, and bilateral lower zones. FINDINGS: LUNGS: Left lung shows near-complete volume loss secondary to compressive atelectasis from an adjacent large pleural effusion. Mild right basal atelectasis is noted. No new focal pulmonary consolidation. PLEURAL SPACES: Gross left pleural effusion with compressive atelectasis of the underlying left lung. Small right pleural effusion persists. No pneumothorax. MEDIASTINUM: Mediastinal structures are shifted mildly to the right, likely secondary to mass effect from the left pleural effusion. Cardiomediastinal silhouette otherwise within expected limits. BONES: No acute osseous abnormality. IMPRESSION: * Left gross pleural effusion with compressive atelectasis of the left lung. * Right small pleural effusion with mild basal atelectasis. * Comparison is made with chest radiograph dated 11/03/24, demonstrating persistence of bilateral pleural effusions, with interval reduction in overall volume of the left-sided collection. No new pulmonary consolidation. * Overall findings indicate partial interval improvement in pleural effusions with residual atelectasis. /[place]
== END | disposition home or self-care (01) ==
LOC: LAB 13:31
PROVIDERS: ATTEND Internal Medicine
DX: J90 Pleural effusion, not elsewhere classified (principal); J98.11 Atelectasis; R06.02 Shortness of breath
CPT/HCPCS: 71045